=== PATIENT | female | born 1940 | race Caucasian/White ===

== ENCOUNTER 2020-01-11 10:59 | Outpatient (CLI) | payer MEDICARE, SELFPAY ==
[2020-01-11 11:39] LABS: Basophils Percent Auto 0.6 % (0.2-1.2); Eosinophils Absolute Auto 0.1 K/mm3 (0-0.3); Hematocrit 43.3 % (37.0-47.0); Hemoglobin 14.3 g/dL (12.0-15.0); Immature Granulocyte Absolute 0.02 K/mm3 (0.00-0.031); Immature Granulocyte Percent A 0.3 % (0-0.5); Lymphocytes Absolute Auto 1.49 K/mm3 (0.9-3.2); Lymphocytes Percent Auto 21.3 % (18.3-44.2); Mean Corpuscular Hemoglobin 31.8 pg (26-34); Mean Corpuscular Volume 96.2 fl (80-100); Mean Platelet Volume 10.7 fl (7.4-10.4); Monocytes Absolute Auto 0.4 K/mm3 (0.1-0.6); Neutrophils Absolute Auto 4.9 K/mm3 (1.3-6.7); Neutrophils Percent Auto 69.8 % (45.5-73.1); Platelet Count Result 240 k/mm3 (150-375); Red Cell Distribution Width 12.4 % (11.5-14.5)
[2020-01-11 11:54] LABS: Alanine Aminotransferase 19 U/L (4-35); Albumin Level 4.4 g/dL (3.5-5.1); Alkaline Phosphatase 81 U/L (38-126); Aspartate Amino Transferase 22 U/L (14-36); Bilirubin,Total 0.6 mg/dL (0.2-1.3); Blood Urea Nitrogen 15 mg/dL (7-17); Calcium 9.8 mg/dL (8.4-10.2); Carbon Dioxide 25 mmol/L (22-30); Chloride 104 mmol/L (98-107); Estimated Glomerular Filt Rate > 60; Glucose 92 mg/dL (65-105); Potassium 4.1 mmol/L (3.4-5.0); Sodium 142 mmol/L (137-145)
== END 2020-01-11 11:00 | disposition home or self-care (01) ==
LOC: ANHLAB 11:02
PROVIDERS: PCP Internal Medicine; Visit Provider Internal Medicine
DX: R53.83 Other fatigue (principal); I10 Essential (primary) hypertension; R11.0 Nausea
CPT/HCPCS: 36415; 80053; 85025

== ENCOUNTER 2020-01-13 07:49 | Outpatient (CLI) | payer MEDICARE, SELFPAY ==
--- NOTE | ~2020-01-13 | XR_ITS ---
EXAMINATION: XR UGI wo kub DATE: 01/13/2020 08:41 INDICATION: Flatulence and abdominal pain. TECHNIQUE: The patient drank thick barium, gas-producing crystals, and thin barium. A total of 785 fl uoroscopic images of the esophagus, stomach, and proximal small bowel were obtained. Fluoroscopy expo sure time was 1.8 minutes. COMPARISON: None. FINDINGS: The esophagus is normal without mass or stricture. Soft tissue motility is normal for age. Small sliding-type hiatal hernia with gastroesophageal junction approximately 4 cm above the level of the diaphragm. Reproducible gastroesophageal reflux of a large amount of contrast extending to the l evel of the thoracic inlet was elicited with provocative maneuvers. The stomach is normal. There are 2 large diverticula arising from the second portion of the duodenum and from the fourth portion near the ligament of Treitz. The latter measures up to 6.5 cm in maximal diameter. The visualized proximal small bowel is otherwise normal. IMPRESSION: 1. Small sliding-type hiatal hernia with gastroesophageal reflux. 2. A couple large duodenal diverticula. Reviewed, dictated and finalized at location A. OGRAPHY TECHNOLOGIST
== END 2020-01-13 07:50 | disposition home or self-care (01) ==
LOC: ANHIMG 07:56
PROVIDERS: PCP Internal Medicine; Visit Provider Internal Medicine
DX: R11.0 Nausea (principal); R14.3 Flatulence; K44.9 Diaphragmatic hernia without obstruction or gangrene; K57.10 Diverticulosis of small intestine without perforation or abscess without bleeding
CPT/HCPCS: 74240

== ENCOUNTER 2020-05-11 07:45 | Outpatient (CLI) | payer MEDICARE, SELFPAY ==
--- NOTE | ~2020-05-11 | CT_ITS ---
EXAMINATION: CT abdomen pelvis wo con DATE: 05/11/2020 16:28 INDICATION: Unspecified abdominal pain. TECHNIQUE: Computed tomography (CT) of the abdomen and pelvis was performed without intravenous contr ast. Automated exposure control and iterative reconstruction technique were employed. The dose-length product was 411.37 mGy-cm. COMPARISON: CT abdomen and pelvis 02/20/2018 FINDINGS: The visualized portions of the lung bases demonstrates mild atelectasis. No pleural effusio n. The heart size is normal. There are calcifications of the aortic valve. There are coronary artery calcifications. There is a small pericardial effusion. There is a small sliding hiatal hernia. There are cysts in the liver measuring up to 1.8 cm. The gallbladder, spleen, pancreas, and left adrenal gl and are normal. There is a 1.8 cm mass in right adrenal gland measuring soft tissue attenuation witho ut change in size, consistent with an adenoma. There is a 2.3 cm cyst in right kidney. Left kidney is normal. There is no urolithiasis. There is diverticulosis of the colon without evidence of diverticu litis. The appendix is normal. There are no dilated loops of bowel. Small bowel diverticula are noted . There are no pathologically enlarged lymph nodes. There is no free intraperitoneal fluid. There is lumbar levoscoliosis and severe spondylosis. IMPRESSION: 1. Small sliding hiatal hernia. 2. Small pericardial effusion. Reviewed, dictated and finalized at location A.
[2020-05-11 08:25] LABS: Hemoglobin A1C 6.6 % (<5.7)
[2020-05-11 08:29] LABS: Alanine Aminotransferase 13 U/L (4-35); Albumin Level 4.1 g/dL (3.5-5.1); Alkaline Phosphatase 79 U/L (38-126); Aspartate Amino Transferase 20 U/L (14-36); Bilirubin,Total 0.3 mg/dL (0.2-1.3); Blood Urea Nitrogen 12 mg/dL (7-17); Carbon Dioxide 27 mmol/L (22-30); Chloride 105 mmol/L (98-107); Cholesterol 105 mg/dL (0-200); Estimated Glomerular Filt Rate > 60; Glucose 112 mg/dL (65-105); HDL Direct 31 mg/dL; Sodium 137 mmol/L (137-145); Triglycerides 102 mg/dL (<150)
[2020-05-11 08:40] LABS: LDL Cholesterol Direct 55 mg/dL
[2020-05-11 08:57] LABS: Vitamin D 25 Hydroxy 33.6 ng/mL
== END 2020-05-11 07:46 | disposition home or self-care (01) ==
PROVIDERS: PCP Internal Medicine; Referring Provider Nurse Practitioner; Visit Provider Internal Medicine
DX: R19.7 Diarrhea, unspecified (principal); R10.9 Unspecified abdominal pain; E11.40 Type 2 diabetes mellitus with diabetic neuropathy, unspecified; E78.5 Hyperlipidemia, unspecified; E03.9 Hypothyroidism, unspecified; E55.9 Vitamin D deficiency, unspecified
CPT/HCPCS: 36415; 74176; 80053; 80061; 82306; 83036; 84443; 87045; 87046; 87427

== ENCOUNTER 2020-05-19 09:41 | Outpatient (CLI) | payer MEDICARE, SELFPAY ==
[2020-05-19 09:54] LABS: Hematocrit 38.5 % (37.0-47.0)
== END 2020-05-19 09:42 | disposition home or self-care (01) ==
PROVIDERS: PCP Internal Medicine; Visit Provider Internal Medicine
DX: E53.8 Deficiency of other specified B group vitamins (principal); R53.83 Other fatigue
CPT/HCPCS: 36415; 82607; 85014; 85018

== ENCOUNTER 2020-09-22 08:10 | Outpatient (CLI) | payer MEDICARE, SELFPAY ==
[2020-09-22 08:54] LABS: Alanine Aminotransferase 17 U/L (4-35); Albumin Level 4.3 g/dL (3.5-5.1); Alkaline Phosphatase 93 U/L (38-126); Anion Gap 11 mmol/L (8-16); Aspartate Amino Transferase 25 U/L (14-36); Bilirubin,Total 0.5 mg/dL (0.2-1.3); Blood Urea Nitrogen 21 mg/dL (7-17); Carbon Dioxide 28 mmol/L (22-30); Chloride 102 mmol/L (98-107); Cholesterol 132 mg/dL (0-200); Estimated Glomerular Filt Rate 53; Glucose 132 mg/dL (65-105); HDL Direct 36 mg/dL; Potassium 4.8 mmol/L (3.4-5.0); Sodium 141 mmol/L (137-145); Triglycerides 135 mg/dL (<150)
[2020-09-22 09:07] LABS: LDL Cholesterol Direct 72 mg/dL
[2020-09-22 09:19] LABS: Vitamin D 25 Hydroxy 36.6 ng/mL
[2020-09-22 09:23] LABS: Hemoglobin A1C 6.6 % (<5.7)
== END 2020-09-22 08:11 | disposition home or self-care (01) ==
LOC: ANHLAB 08:14
PROVIDERS: PCP Internal Medicine; Visit Provider Internal Medicine
DX: E78.5 Hyperlipidemia, unspecified (principal); I10 Essential (primary) hypertension; E11.40 Type 2 diabetes mellitus with diabetic neuropathy, unspecified; E03.9 Hypothyroidism, unspecified; E55.9 Vitamin D deficiency, unspecified
CPT/HCPCS: 36415; 80053; 80061; 82306; 82607; 83036; 84443

== ENCOUNTER 2020-12-11 08:12 | Outpatient (CLI) | payer MEDICARE, SELFPAY ==
--- NOTE | ~2020-12-11 | MM_ITS ---
EXAMINATION: MM screening mary BI w maribel HISTORY: Screening TECHNIQUE: Craniocaudal and mediolateral oblique 3-D tomosynthesis images were obtained and synthetic 2-D images were generated. CAD analysis was submitted and interpreted. COMPARISON: No prior mammogram is available for comparison at this institution. BREAST PARENCHYMAL COMPOSITION: Breast composed of scattered areas of fibroglandular density FINDINGS: There are extensive punctate calcifications There is no evidence of suspicious mass or arch itectural distortion to suggest malignancy in either breast. There has been no suspicious interval ch eun. IMPRESSION: 1. Extensive bilateral calcifications. Comparison to previous outside mammograms recommended. BI-RADS CATEGORY 0 - INCOMPLETE STUDY, NEED ADDITIONAL IMAGING EVALUATION. Reviewed, dictated and finalized at location A. SQUAD COMMANDER IMPRESSION: 1. Extensive bilateral calcifications. Comparison to previous outside mammogram s recommended. BI-RADS CATEGORY 0 - INCOMPLETE STUDY, NEED ADDITIONAL IMAGING EVALUATION.
--- NOTE | ~2020-12-11 | DEXA_ITS ---
Bone Density Report Name: Kathy Valdez Age: 80 Sex: Female Ethnicity: White Date of : 1940 Indication: postmenopausal; height loss; hysterectomy; Referring Provider: Lilly Meehan Study: Bone densitometry was performed. Exam Date: December 11, 2020 Accession number: [id number] Bone Density: Region BMD T-score Z-score Classification AP Spine (L1, L2, L4) 0.991 -0.4 2.3 Normal Femoral Neck (Left) 0.613 -2.1 0.2 Osteopenia Total Hip (Left) 0.901 -0.3 1.8 Normal Total Hip Bilateral Avg 0.922 -0.2 1.9 Normal Femoral Neck (Right) 0.656 -1.7 0.6 Osteopenia Total Hip (Right) 0.942 0.0 2.1 Normal World Health Organization criteria for BMD impression classify patients as: Normal (T-score at or above -1.0), Osteopenia (T-score between -1.0 and -2.5), or Osteoporosis (T-score at or below -2.5). 10-year Fracture Risk(1): Major Osteoporotic Fracture 16% Hip Fracture 4.9% Reported Risk Factors: [place] (), Neck BMD=0.613, BMI=24.3 (1) FRAX(R) Version 3.08. Fracture probability calculated for an untreated patient. Fracture probability may be lower if the patient has received treatment. Previous Exams: Region Exam Age BMD T-score BMD Change BMD Change Date g/cm2 vs Baseline vs Previous AP Spine(L1, L2, L4) 12/11/2020 80 0.991 -0.4 -0.062(-5.9%)* -0.062(-5.9%)* 10/15/2014 74 1.053 0.2 Total Hip(Left) 12/11/2020 80 0.901 -0.3 -0.115(-11.3%) -0.115(-11.3%) 10/15/2014 74 1.016 0.6 Total Hip(Right) 12/11/2020 80 0.942 0.0 -0.112(-10.6%) -0.112(-10.6%) 10/15/2014 74 1.054 0.9 *Denotes significance at 95% confidence level, LSC for AP Spine = 0.022 g/cm2, LSC for Total Hip = 0.027 g/cm2 Clinical Information Provided by Patient: Has used the following medications: Vitamin D Has the following medical conditions: Hysterectomy Patient maximum height was 66.5 Menopause Age: 39 No regular weight bearing exercise Does not regularly consume dairy products Onset of menses at age 12 Number of children 1 Missed period for more than 6 months in a row Impression: The patient has low bone mass, based on the Left Femoral Neck T-score. The patient has an estimated ten-year risk of hip fracture of 4.9% and an estimated ten-year risk of major fracture of 16%, based on the WHO FRAX algorithm. The BMD for the AP Spine(L1, L2, L4) decreased, changing by -5.9% since the last DXA exam. The BMD for the Total Hip(Left) decreased, changing by
== END 2020-12-11 08:13 | disposition home or self-care (01) ==
PROVIDERS: PCP Internal Medicine; Visit Provider Nurse Practitioner
DX: Z12.31 Encounter for screening mammogram for malignant neoplasm of breast (principal); R92.8 Other abnormal and inconclusive findings on diagnostic imaging of breast; M85.852 Other specified disorders of bone density and structure, left thigh; M85.851 Other specified disorders of bone density and structure, right thigh
CPT/HCPCS: 77063; 77067; 77080

== ENCOUNTER 2021-01-20 07:12 | Outpatient (CLI) | payer MEDICARE, SELFPAY ==
[2021-01-20 07:56] LABS: Alanine Aminotransferase 21 U/L (4-35); Alkaline Phosphatase 119 U/L (38-126); Anion Gap 8 mmol/L (8-16); Aspartate Amino Transferase 25 U/L (14-36); Bilirubin,Total 0.3 mg/dL (0.2-1.3); Blood Urea Nitrogen 17 mg/dL (7-17); Calcium 9.4 mg/dL (8.4-10.2); Carbon Dioxide 27 mmol/L (22-30); Chloride 107 mmol/L (98-107); Cholesterol 111 mg/dL (0-200); Estimated Glomerular Filt Rate > 60; Glucose 131 mg/dL (65-105); HDL Direct 33 mg/dL; Potassium 3.7 mmol/L (3.4-5.0); Sodium 142 mmol/L (137-145); Triglycerides 85 mg/dL (<150)
[2021-01-20 08:07] LABS: LDL Cholesterol Direct 55 mg/dL
[2021-01-20 08:08] LABS: Creatinine Urine 165.3 mg/dL
[2021-01-20 08:10] LABS: MALB Creatinine Ratio 8.1 mg/g (0-30); Microalbumin Urine Random 13.4 mg/L (0-16.7)
[2021-01-20 08:13] LABS: Hemoglobin A1C 6.4 % (<5.7)
[2021-01-20 08:21] LABS: Vitamin D 25 Hydroxy 41.9 ng/mL
== END 2021-01-20 07:13 | disposition home or self-care (01) ==
PROVIDERS: PCP Internal Medicine; Visit Provider Nurse Practitioner
DX: E55.9 Vitamin D deficiency, unspecified (principal); E11.40 Type 2 diabetes mellitus with diabetic neuropathy, unspecified; E03.9 Hypothyroidism, unspecified; E78.5 Hyperlipidemia, unspecified; E53.8 Deficiency of other specified B group vitamins
CPT/HCPCS: 36415; 80053; 80061; 82043; 82306; 82607; 83036; 84443

== ENCOUNTER 2021-07-24 07:10 | Outpatient (CLI) | payer MEDICARE, SELFPAY ==
[2021-07-24 08:31] LABS: Hematocrit 44.1 % (37.0-47.0); Hemoglobin 14.2 g/dL (12.0-15.0)
[2021-07-24 08:56] LABS: Alanine Aminotransferase 23 U/L (4-35); Albumin Level 4.3 g/dL (3.5-5.1); Alkaline Phosphatase 143 U/L (38-126); Anion Gap 8 mmol/L (8-16); Aspartate Amino Transferase 28 U/L (14-36); Bilirubin,Total 0.6 mg/dL (0.2-1.3); Blood Urea Nitrogen 20 mg/dL (7-17); Calcium 9.7 mg/dL (8.4-10.2); Carbon Dioxide 26 mmol/L (22-30); Chloride 106 mmol/L (98-107); Cholesterol 130 mg/dL (0-200); Estimated Glomerular Filt Rate 60; Glucose 135 mg/dL (65-110); HDL Direct 29 mg/dL; Potassium 4.1 mmol/L (3.4-5.0); Sodium 140 mmol/L (137-145); Triglycerides 208 mg/dL (<150)
[2021-07-24 09:05] LABS: LDL Cholesterol Direct 55 mg/dL
[2021-07-24 09:43] LABS: Hemoglobin A1C 7.3 % (<5.7)
== END 2021-07-24 07:11 | disposition home or self-care (01) ==
PROVIDERS: PCP Internal Medicine; Visit Provider Internal Medicine
DX: E11.40 Type 2 diabetes mellitus with diabetic neuropathy, unspecified (principal); I10 Essential (primary) hypertension; E78.5 Hyperlipidemia, unspecified; D64.9 Anemia, unspecified; E03.9 Hypothyroidism, unspecified; E53.8 Deficiency of other specified B group vitamins
CPT/HCPCS: 36415; 80053; 80061; 82607; 83036; 84443; 85014; 85018

== ENCOUNTER 2021-08-13 07:52 | Outpatient (CLI) | payer MEDICARE, SELFPAY ==
--- NOTE | ~2021-08-13 | NM_ITS ---
EXAMINATION: NM beatrice stress w perfusion DATE: 08/13/2021 10:39 INDICATION: Chest pain TECHNIQUE: Rest images were obtained following intravenous administration of 11.5 mCi Tc99m tetrofosm in (Myoview). The patient was infused intravenously with Lexiscan (Regadenoson). Then, 23.3 mCi Tc99m tetrofosmin (Myoview) was administered intravenously, and stress images were obtained. Data was michael nstructed into short axis and horizontal and vertical long axis SPECT images. Gated SPECT images were also obtained. COMPARISON: None. FINDINGS: There is no definite reversible or fixed perfusion abnormality to suggest ischemia or infar ction. There is normal left ventricular chamber size, wall motion and ejection fraction. Left ventr icular ejection fraction measures >70%. IMPRESSION: 1. Normal myocardial perfusion at rest and during stress. 2. Left ventricular ejection fraction measuring >70%. Reviewed, dictated and finalized at location A.
--- NOTE | 2021-08-13 08:39 | EST_ITS ---
Patient Info Name: Kathy Valdez Age: 81 years : 1940 Gender: Female Ht: 65 in Wt: 150 lbs BSA: 1.78 m2 Exam Date: 08/13/2021 9:14 AM Exam Location: [facility] Stress Patient Status: Outpatient Admit Date: 08/13/2021 Staff Ordering Physician: Lilly Meehan Attending Provider: Lilly Meehan Exercise Technologist: Felicitas Holt RDCS Exercise Physician: Murtaza Vu DO Exam Type: CA stress beatrice w NM Study Info Indications R07.9 - Chest pain, unspecified A regadenoson stress test was performed. Summary 1. 1. Negative lexiscan stress test for ischemic ST changes by ECG criteria. 2. 2. Stable hemodynamics throughout the test. 3. 3. Nuclear scan to follow and will be reported separately. Please correlate with it. 4. 4. Patient informed of the above results. Protocol: Lexiscan Stress ECG Details Stage: REST Duration (min): 2 min : 32 sec HR (bpm): 79 SBP (mmHg): 124 DBP (mmHg): 68 Stage: REST Duration (min): 7 min : 50 sec HR (bpm): 73 SBP (mmHg): 124 DBP (mmHg): 68 Stage: STAGE 1 Duration (min): 1 min : 0 sec HR (bpm): 90 SBP (mmHg): 117 DBP (mmHg): 72 Stage: RECOVERY Duration (min): 1 min : 0 sec HR (bpm): 95 SBP (mmHg): 126 DBP (mmHg): 70 Stage: RECOVERY Duration (min): 2 min : 0 sec HR (bpm): 82 SBP (mmHg): 126 DBP (mmHg): 70 Stage: RECOVERY Duration (min): 3 min : 0 sec HR (bpm): 97 SBP (mmHg): 118 DBP (mmHg): 69 Stage: RECOVERY Duration (min): 3 min : 3 sec HR (bpm): 97 SBP (mmHg): 118 DBP (mmHg): 69 Rest HR: 73 bpm Peak HR: 98 bpm Rest Sys BP: 124 mmHg Peak Sys BP: 126 mmHg Max Pred HR: 138 bpm % Max Pred HR: 71 % Target HR: 117 bpm Max RPP: 12,348 bpm*mmHg Termination Reason: Completed protocol Cardiac Symptoms: Shortness of breath Total Time: 1 min : 0 sec Rest Yuen BP: 68 mmHg Peak Yuen BP: 70 mmHg Total Dose: 0.4 mg Resting ECG Sinus rhythm, RBBB, LAFB. Stress ECG No ST changes. Arrhythmias None. Report Signatures
== END 2021-08-13 07:53 | disposition home or self-care (01) ==
LOC: ANHCARD 07:55
PROVIDERS: PCP Internal Medicine; Visit Provider Nurse Practitioner
DX: R07.9 Chest pain, unspecified (principal)
CPT/HCPCS: 78452; 93017; A9502; J2785

== ENCOUNTER 2021-09-11 15:44 | Emergency (ER) | payer MEDICARE, SELFPAY ==
[2021-09-11 15:46] VITALS: BP 149/72; PULSE 74; RESP 24; TEMP 36.5; O2SAT 96
--- NOTE | 2021-09-11 15:48 | ED.CHESTPAIN ---
HPI - Chest Pain General Chief Complaint: Chest Pain Stated Complaint: CHEST PAIN Source: patient and RN notes reviewed Limitations: no limitations History of Present Illness HPI narrative: The vaccinated patient, non-smoker/nondrinker on several meds for HTN, HLD, etc., presents with right-sided chest pain. Patient been seen by medicine and has no known ASHD from recent noncontributory NM Tracie scan last month. She is pleasantly demented and through her recalls & complains of a 1 hour recurrence of right-sided chest pain. No med noncompliance, fever, cough, acid taste, diaphoresis, calf pain/edema , palpitations shortness of breath; no loss of taste/smell, vomiting/diarrhea, wheezing or sneezing. She describes the pain as somewhat reproducible with movement or palpation, is 'dull ', occ somewhat radiating to her back -unlike her GERD. She has been on tramadol in the past, but is not tried anything. Screening EKG is unchanged from previous; last year she had CT abdomen with noncontributory lung component; family advised and declines AMA going to hospital for higher level testing. Related Data Home Medications Medication Instructions Recorded Confirmed cholecalciferol (vitamin D3) 25 1,000 unit PO DAILY 11/03/19 07/31/21 mcg (1,000 unit) capsule omega-3 fatty acids 1,000 mg 1,000 mg PO DAILY 07/31/21 07/31/21 capsule Allergies Allergy/AdvReac Type Severity Reaction Status Date / Time lidocaine Allergy Unknown Unknown Verified 07/31/21 10:14 metronidazole Allergy Unknown Unknown Verified 07/31/21 10:14 mirabegron Allergy Unknown Unknown Verified 07/31/21 10:14 Penicillins Allergy Unknown Unknown Verified 07/31/21 10:14 Review of Systems Review of Systems: General/Constitutional: No weight loss,fever Eyes: N0: Redness,discharge Ears/Nose/Throat: No: Epistaxis,ear discharge Respiratory: Denies: Hemoptysis Gastrointestinal: No Vomiting, Bleeding-rectal Skin: No Lumps, eruption Neurologic: No Focal Weakness,Sz Hematologic: Denies: Petechiae/Purpura Psychiatric: No: Suicida ideationl All Other Systems: Reviewed and Negative [facility] Past Medical History Medical History (Reviewed 01/23/21 @ 11:06 by Melissa Lloyd [facility]) History of needle biopsy Postmenopausal Screening for breast cancer Screening for osteoporosis Surgical History Surgical History History of colon resection S/P RALF-BSO Family History Family History Mother Cerebrovascular accident Family history of Alzheimer's disease Father Family history of heart disease in male family member before age 55 Sibling Family history of heart disease in male family member before age 55 Other Diabetes mellitus Family history of cardiovascular disease Hypertension Social History Social History Smoking status: Former smoker Smoking end date: 12/01/76 Alcohol intake: current Comments At time of signature, agree with nursing past medical, surgical, social and family history. There is no relevant family history pertinent to the presenting complaint Exam Narrative: General Appearance: Well appearing, overweight no distress EYE: PERRLA, Conjunctiva clear Ears: External ear normal Nose: Normal nose Mouth/Throat: Normal appearing, Normal lips Neck: Supple Respiratory: Airway patent, No respiratory distress, CTA decreased BS at bases, tender right infraclavicular chest wall Cardiovascular: RRR, 2/6 TAMMIE Abdomen: Soft, Non-tender, No massess, No organomegaly (no rebound/ surgical signs), Hyperactive bowel sounds Musculoskeletal: Full ROM Skin: Warm, Dry, no edema/ calf tenderness Neurological: Awake alert pleasantly demented affect Psychiatric: Normal mood, Course Course Emergency Course: EKG abnormal: NSR 63, MD 0.14 possible IC RBBB, axis~-60 possible
--- NOTE | 2021-09-11 15:58 | ECG_ITS ---
Measurements Intervals [place] Rate: 63 P: 5 IL: 148 QRS: -55 QRSD: 130 T: -8 QT: 418 QTc: 429 Interpretive Statements SINUS RHYTHM RIGHT BUNDLE BRANCH BLOCK LEFT ANTERIOR FASCICULAR BLOCK BASELINE ARTIFACT- II, III, AVF ABNORMAL ECG Electronically Signed On 09-11-2021 16:53:12 CDT by Murtaza uV D.O.
== END 2021-09-11 16:44 | disposition home or self-care (01) ==
PROVIDERS: Emergency Provider Emergency Medicine; PCP Internal Medicine
DX: R07.89 Other chest pain (principal); I45.2 Bifascicular block; I10 Essential (primary) hypertension; E78.5 Hyperlipidemia, unspecified
CPT/HCPCS: 93005; 99213; G0463

== ENCOUNTER 2021-11-28 07:49 | Outpatient (CLI) | payer MEDICARE, SELFPAY ==
[2021-11-28 09:04] LABS: Alanine Aminotransferase 16 U/L (4-35); Albumin Level 4.3 g/dL (3.5-5.1); Alkaline Phosphatase 113 U/L (38-126); Anion Gap 8 mmol/L (8-16); Aspartate Amino Transferase 24 U/L (14-36); Bilirubin,Total 0.6 mg/dL (0.2-1.3); Blood Urea Nitrogen 19 mg/dL (7-17); Calcium 9.7 mg/dL (8.4-10.2); Carbon Dioxide 24 mmol/L (22-30); Chloride 108 mmol/L (98-107); Cholesterol 109 mg/dL (0-200); Estimated Glomerular Filt Rate 60; Glucose 118 mg/dL (65-110); HDL Direct 23 mg/dL; Potassium 3.9 mmol/L (3.4-5.0); Sodium 140 mmol/L (137-145); Triglycerides 174 mg/dL (<150)
[2021-11-28 09:15] LABS: LDL Cholesterol Direct 49 mg/dL
[2021-11-28 09:18] LABS: Creatinine Urine 163.3 mg/dL
[2021-11-28 09:22] LABS: Microalbumin Urine Random 16.4 mg/L (0-16.7)
[2021-11-28 09:29] LABS: Vitamin D 25 Hydroxy 40.7 ng/mL
== END 2021-11-28 07:50 | disposition home or self-care (01) ==
LOC: ANHLAB 07:52
PROVIDERS: PCP Internal Medicine; Visit Provider Nurse Practitioner
DX: E11.40 Type 2 diabetes mellitus with diabetic neuropathy, unspecified (principal); E78.5 Hyperlipidemia, unspecified; E55.9 Vitamin D deficiency, unspecified; E53.8 Deficiency of other specified B group vitamins; E03.9 Hypothyroidism, unspecified
CPT/HCPCS: 36415; 80053; 80061; 82043; 82306; 82607; 83036; 84443

== ENCOUNTER 2021-12-07 14:34 | Outpatient (CLI) | payer MEDICARE, SELFPAY ==
--- NOTE | ~2021-12-07 | XR_ITS ---
EXAMINATION: XR lumbar spine 2-3V EXAM DATE: 12/07/2021 15:02 INDICATION: M54.5 - Right low back pain. TECHNIQUE: Lumber spine frontal, lateral, lateral L5-S1 projections for interpretation. Comparison is made to prior examination from 04/27/2019. FINDINGS: There is mild to moderate lumbar levoscoliosis. Moderate disc disease L2-3, L3-4 and L5-S1 the vertebral body heights are maintained. There is moderate lumbar facet arthropathy. Sacrum, sacro iliac joints, sacral arcuate lines are intact.. IMPRESSION: 1. Mild to moderate lumbar scoliosis. 2. Moderate spondylosis. Reviewed, dictated and finalized at location G. AT MONITORING ANALYST
--- NOTE | ~2021-12-07 | XR_ITS ---
EXAMINATION: XR hip RT min 2V DATE: 12/07/2021 15:01 INDICATION: Right hip pain. TECHNIQUE: 2 views of right hip were obtained. COMPARISON: Right hip radiographs 04/27/2019 FINDINGS: Bone alignment is normal. No fracture. There is mild right hip osteoarthritis. IMPRESSION: 1. Mild right hip osteoarthritis. Reviewed, dictated and finalized at location A. B SPECIALIST
== END 2021-12-07 14:35 | disposition home or self-care (01) ==
LOC: ANHIMG 14:39
PROVIDERS: PCP Internal Medicine; Visit Provider Internal Medicine
DX: M25.551 Pain in right hip (principal); M41.9 Scoliosis, unspecified; M47.816 Spondylosis without myelopathy or radiculopathy, lumbar region
CPT/HCPCS: 72100; 73502

== ENCOUNTER 2021-12-27 15:09 | Outpatient (CLI) | payer MEDICARE, SELFPAY ==
--- NOTE | ~2021-12-27 | MM_ITS ---
EXAMINATION: MM screening mary BI w maribel HISTORY: Screening mammogram TECHNIQUE: Craniocaudal and mediolateral oblique 3-D tomosynthesis images were obtained and synthetic 2-D images were generated. CAD analysis was submitted and interpreted. COMPARISON: 12/11/2020, 03/02/2018 BREAST PARENCHYMAL COMPOSITION: There are scattered areas of fibroglandular density. FINDINGS: Scattered benign-appearing calcifications are present. There is no evidence of suspicious m ass, calcification, or architectural distortion to suggest malignancy in either breast. There has bee n no suspicious interval change. IMPRESSION: 1. No mammographic evidence of malignancy. 2. Recommend routine screening mammography while the patient remains in good health. BI-RADS Category 2: Benign finding(s). Reviewed, dictated and finalized at location A. K SHEETS CLEANER INSPECTOR IMPRESSION: 1. No mammographic evidence of malignancy. 2. Recommend routine screening mammography while the patient remains in good he alth. BI-RADS Category 2: Benign finding(s).
== END 2021-12-27 15:10 | disposition home or self-care (01) ==
LOC: ANHIMG 15:12
PROVIDERS: PCP Internal Medicine; Visit Provider Internal Medicine
DX: Z12.31 Encounter for screening mammogram for malignant neoplasm of breast (principal)
CPT/HCPCS: 77063; 77067

== ENCOUNTER 2022-01-06 11:27 | Emergency (ER) | payer MEDICARE, SELFPAY ==
[2022-01-06] VITALS (25 sets, daily range): BP systolic 122–137; BP diastolic 63–82; PULSE 88; RESP 20; TEMP 36.7; O2SAT 91–96
--- NOTE | ~2022-01-06 | CT_ITS ---
EXAMINATION: CT lumbar spine wo [facility] EXAM DATE: 01/06/2022 14:30 INDICATION: low back pain, injury . TECHNIQUE: Spiral CT lumbar spine was performed without contrast. Axial, coronal and sagittal images of the lumbar spine were reviewed. The dose-length product (DLP) for this examination was 410.12 mGy- cm. The exposure was tailored according to patient size (auto mA exposure control), and iterative re construction (ASIR) was used as additional dose reduction technique. There is no prior study for max orozco. FINDINGS: There is possible acute minimal compression fracture at the superior endplate of T12. There is moderate disc disease at L2-3 and L5-S1, mild to moderate at L3-4. Mild central canal stenosis fr om L2 through S1 due to disc bulges and moderate to severe facet arthropathy. There is mild to modera te multilevel neural foraminal stenosis. Mild thoracolumbar levoscoliosis. Sacrum appears intact wit h moderate osteoarthritis. IMPRESSION: 1. Possible acute minimal compression fracture T12 superior endplate. 2. Overall moderate lumbar spondylosis. Reviewed, dictated and finalized at location G. TUB COOKER OPERATOR
--- NOTE | 2022-01-06 12:52 | PC.NURSE ---
patient and has been asking about food as patient is diabetic. BSBS at this time 142.
[2022-01-06 12:53] LABS: Glucose Point of Care 142 mg/dl (65-105)
--- NOTE | 2022-01-06 13:51 | ED.FALL ---
HPI - Fall General Chief Complaint: Fall Stated Complaint: fall - back pain Time Seen by Provider: 01/06/22 12:27 Source: patient Mode of arrival: ambulatory Limitations: no limitations History of Present Illness HPI Narrative: Patient is an 81-year-old female complaining of low back pain, 7 out of 10, dull, aching, nonradiating started prior to arrival after she slipped and fell landing on her back. Patient states that she tripped on a throw rug and that is reason why she fell. Patient denies any symptoms prior to the fall. Patient states that she has a history of chronic low back pain, I am in constant 5 out of 10 pain . Patient denies any weakness, numbness or incontinence. Patient denies any head, neck, chest, abdomen, pelvis or any extremity pain/injury. Related Data Home Medications Medication Instructions Recorded Confirmed cholecalciferol (vitamin D3) 25 1,000 unit PO DAILY 11/03/19 12/05/21 mcg (1,000 unit) capsule omega-3 fatty acids 1,000 mg 1,000 mg PO DAILY 07/31/21 12/05/21 capsule losartan 50 mg PO DAILY 01/06/22 metformin 1,000 mg PO BID 01/06/22 simvastatin 40 mg PO DAILY 01/06/22 Allergies Allergy/AdvReac Type Severity Reaction Status Date / Time lidocaine Allergy Unknown Unknown Verified 12/05/21 10:53 metronidazole Allergy Unknown Unknown Verified 12/05/21 10:53 mirabegron Allergy Unknown Unknown Verified 12/05/21 10:53 Penicillins Allergy Unknown Unknown Verified 12/05/21 10:53 Review of Systems Review of Systems: All systems reviewed & are unremarkable except as noted in HPI and below Constitutional: Constitutional: Denies body ache(s), Denies chills, Denies excessive sweating, Denies fatigue, Denies fever(s), Denies headache(s), Denies lethargy, Denies malaise, Denies weakness and Denies weight loss Eyes: Eyes: Denies blurry vision, Denies change in vision and Denies loss of vision ENT: Denies dizziness, Denies ear discharge, Denies headache(s), Denies lip swelling, Denies epistaxis, Denies nasal congestion, Denies neck pain, Denies throat swelling and Denies tongue swelling Cardiovascular: Cardiovascular: Denies chest pain, Denies chest pain at rest, Denies chest pain with activity, Denies diaphoresis, Denies rapid heart rate, Denies edema, Denies irregular heart rhythm, Denies lightheadedness, Denies palpitations, Denies dyspnea and Denies dyspnea on exertion Respiratory: Respiratory: Denies chest congestion, Denies cough, Denies hemoptysis, Denies dyspnea and Denies dyspnea on exertion Gastrointestinal: Gastrointestinal: Denies abdominal pain, Denies melena, Denies hematochezia, Denies diarrhea, Denies nausea, Denies vomiting and Denies hematemesis Musculoskeletal: Musculoskeletal: Denies abnormal gait, Denies deformity, Denies joint swelling, Denies limited range of motion, Denies neck pain and Denies numbness Neurologic: Denies Abnormal speech present, Denies abnormal gait, Denies confusion, Denies dizziness, Denies headache(s), Denies focal weakness, Denies loss of vision, Denies numbness, Denies Other visual disturbances, Denies Sensory deficit (Neuro) and Denies weakness Psychiatric: Psychiatric: Denies confusion, Denies depression, Denies auditory hallucinations, Denies homicidal ideation and Denies suicidal ideation Endocrine: Endocrine: Denies cold intolerance, Denies excessive sweating, Denies fatigue, Denies heat intolerance and Denies palpitations Hematologic/Lymphatic: Hematologic/Lymphatic: Denies easy bleeding and Denies easy bruising Allergic/Immunologic: Allergic/Immunologic: Denies lip swelling, Denies throat swelling and Denies tongue swelling PMFSH Past Medical History Medical History History of needle biopsy Postmenopausal Screening for breast cancer Screening for osteoporosis Surgical History Surgical History History of colon resection S/P RALF-BSO
[2022-01-06] MEDS: ONDANSETRON INJ 4 MG/2 ML VIAL IV PUSH (14:16)
[2022-01-06] MEDS: HYDROmorphone HCL INJ (*CRX) 1 MG/ML SYR 0.5 MG IV PUSH (14:16)
[2022-01-06] MEDS: KETOROLAC 15 MG/ML VIAL (*BKC) IV PUSH (14:37)
== END 2022-01-06 16:36 | disposition home or self-care (01) ==
PROVIDERS: Emergency Provider Emergency Medicine; PCP Internal Medicine
DX: S22.080A Wedge compression fracture of T11-T12 vertebra, initial encounter for closed fracture (principal); Z87.891 Personal history of nicotine dependence; M47.816 Spondylosis without myelopathy or radiculopathy, lumbar region; Z79.84 Long term (current) use of oral hypoglycemic drugs; Z90.49 Acquired absence of other specified parts of digestive tract; W18.09XA Striking against other object with subsequent fall, initial encounter
CPT/HCPCS: 72131; 82948; 96374; 96375; 99284; J1170; J1885; J2405

== ENCOUNTER 2022-03-12 07:34 | Outpatient (CLI) | payer MEDICARE, SELFPAY ==
--- NOTE | ~2022-03-12 | XR_ITS ---
EXAMINATION: XR knee RT 3V EXAM DATE: 03/12/2022 09:04 INDICATION: M25.561 - Pain in right knee, no recent injury . TECHNIQUE: Three projections of the right knee. There is no prior study for comparison. FINDINGS: No evidence osteochondral defect or joint body in the right knee joint. There is mild tri compartmental primary osteoarthritis. No joint effusion. There are no acute fractures or dislocation s identified. There is no subcutaneous gas. The soft tissue is unremarkable. There are no radiopa que foreign bodies. IMPRESSION: Mild right knee osteoarthritis. Reviewed, dictated and finalized at location B.
--- NOTE | ~2022-03-12 | CT_ITS ---
EXAMINATION: CT brain wo con DATE: 03/12/2022 09:12 INDICATION: Other symptoms and signs involving cognitive function. TECHNIQUE: Computed tomography (CT) of the head was performed without intravenous contrast. The mA wa s adjusted according to patient size. Iterative reconstruction technique was employed. The dose-lengt h product was 605.33 mGy-cm. COMPARISON: None FINDINGS: There are scattered areas of low attenuation in the cerebral white matter. There is no intracranial h emorrhage, acute infarction, or abnormal intracranial mass lesion. The ventricles are normal in size. There is mild mucosal thickening in the paranasal sinuses. The mastoid air cells are normal. IMPRESSION: 1. Mild nonspecific cerebral white matter disease, which likely represents chronic small vessel ische elena disease. Reviewed, dictated and finalized at location A. IMPRESSION: 1. Mild nonspecific cerebral white matter disease, which likely represents poultry dresser luis daniel small vessel ischemic disease.
[2022-03-12 08:03] LABS: Basophils Absolute Auto 0.1 K/mm3 (0.0-0.1); Basophils Percent Auto 0.6 % (0.2-1.2); Eosinophils Absolute Auto 0.1 K/mm3 (0-0.3); Eosinophils Percent Auto 1.7 % (0-4.4); Hematocrit 39.1 % (37.0-47.0); Hemoglobin 13.1 g/dL (12.0-15.0); Immature Granulocyte Absolute 0.02 K/mm3 (0.00-0.031); Immature Granulocyte Percent A 0.3 % (0-0.5); Lymphocytes Absolute Auto 1.49 K/mm3 (0.9-3.2); Lymphocytes Percent Auto 19.2 % (18.3-44.2); Mean Corpuscular HGB Conc 33.5 g/dl (32-36); Mean Corpuscular Hemoglobin 32.7 pg (26-34); Mean Corpuscular Volume 97.5 fl (80-100); Mean Platelet Volume 10.4 fl (7.4-10.4); Monocytes Absolute Auto 0.5 K/mm3 (0.1-0.6); Monocytes Percent Auto 6.6 % (2.6-8.5); Neutrophils Absolute Auto 5.6 K/mm3 (1.3-6.7); Neutrophils Percent Auto 71.6 % (45.5-73.1); Platelet Count Result 245 k/mm3 (150-375); Red Blood Count 4.01 M/mm3 (4.2-5.4); Red Cell Distribution Width 12.7 % (11.5-14.5); White Blood Count 7.8 K/mm3 (4.5-10.0)
== END 2022-03-12 07:35 | disposition home or self-care (01) ==
LOC: ANHIMG 07:38
PROVIDERS: PCP Internal Medicine; Visit Provider Internal Medicine
DX: R41.89 Other symptoms and signs involving cognitive functions and awareness (principal); M17.11 Unilateral primary osteoarthritis, right knee; R53.83 Other fatigue; E53.8 Deficiency of other specified B group vitamins; R90.82 White matter disease, unspecified
CPT/HCPCS: 36415; 70450; 73562; 82607; 85025

== ENCOUNTER 2022-04-04 12:12 | Emergency (ER) | payer MEDICARE, SELFPAY ==
--- NOTE | ~2022-04-04 | XR_ITS ---
EXAMINATION: XR abdomen/kub 1V DATE: 04/04/2022 16:17 INDICATION: Constipation. Abdominal pain. Nausea. TECHNIQUE: A supine view of the abdomen on 2 radiographs was obtained. COMPARISON: Lumbar spine radiographs 04/27/2019 FINDINGS: There are no dilated loops of bowel. There is a moderate volume of stool in the colon. Stab le calcifications in the pelvis are likely phleboliths. IMPRESSION: 1. Nonobstructive bowel gas pattern. Reviewed, dictated and finalized at location A.
[2022-04-04 12:15] VITALS: BP 90/59; PULSE 55; RESP 20; TEMP 36.1; O2SAT 96
[2022-04-04 12:28] LABS: Glucose Point of Care 135 mg/dl (65-105)
[2022-04-04 12:32] LABS: Basophils Absolute Auto 0.1 K/mm3 (0.0-0.1); Basophils Percent Auto 0.9 % (0.2-1.2); Eosinophils Absolute Auto 0.1 K/mm3 (0-0.3); Eosinophils Percent Auto 2.1 % (0-4.4); Hematocrit 40.6 % (37.0-47.0); Immature Granulocyte Absolute 0.02 K/mm3 (0.00-0.031); Immature Granulocyte Percent A 0.3 % (0-0.5); Lymphocytes Absolute Auto 2.52 K/mm3 (0.9-3.2); Lymphocytes Percent Auto 37.4 % (18.3-44.2); Mean Corpuscular Hemoglobin 32.3 pg (26-34); Mean Platelet Volume 10.8 fl (7.4-10.4); Monocytes Absolute Auto 0.5 K/mm3 (0.1-0.6); Monocytes Percent Auto 7.4 % (2.6-8.5); Neutrophils Absolute Auto 3.5 K/mm3 (1.3-6.7); Neutrophils Percent Auto 51.9 % (45.5-73.1); Platelet Count Result 258 k/mm3 (150-375); Red Blood Count 4.02 M/mm3 (4.2-5.4); Red Cell Distribution Width 12.9 % (11.5-14.5); White Blood Count 6.7 K/mm3 (4.5-10.0)
[2022-04-04 12:46] LABS: Alanine Aminotransferase 14 U/L (4-35); Albumin Level 4.2 g/dL (3.5-5.1); Alkaline Phosphatase 85 U/L (38-126); Anion Gap 9 mmol/L (8-16); Aspartate Amino Transferase 24 U/L (14-36); Bilirubin,Total 0.4 mg/dL (0.2-1.3); Blood Urea Nitrogen 20 mg/dL (7-17); Calcium 9.2 mg/dL (8.4-10.2); Carbon Dioxide 22 mmol/L (22-30); Chloride 109 mmol/L (98-107); Estimated CRCL calculation 42 ml/min; Estimated Glomerular Filt Rate > 60; Glucose 140 mg/dL (65-110); Lipase 85 U/L (23-300); Sodium 140 mmol/L (137-145)
[2022-04-04 16:03] LABS: Appearance Urine Clear (Clear); Bilirubin Urine 1+ (Negative); Blood Urine Trace-lysed (Negative); Color Urine Yellow (Yellow); Glucose Urine UA Negative (Negative); Ketones Urine Trace mg/dL (Negative); Leukocyte Esterase Ur 1+ LEU/UL (Negative); Nitrate Urine Negative (Negative); Protein Urine 1+ mg/dL (Negative); Specific Grav Ur 1.025 (1.001-1.035); Urobilinogen Urine 0.2 mg/dL (<2.0); pH Urine 5.5 (5.0-9.0)
[2022-04-04 16:10] LABS: Bacteria Urine Trace /hpf; Mucus Urine Moderate /lpf; Squamous Epithelial Cell Urine Few /hpf (Few); WBC Urine 31-50 /hpf
[2022-04-04 16:12] LABS: Add Urine Microscopic? YES
--- NOTE | 2022-04-04 17:13 | ED.ABDPAIN ---
HPI - Abdominal Pain General Chief Complaint: Abdominal Pain Stated Complaint: locked bowels Time Seen by Provider: 04/04/22 15:46 History of Present Illness HPI narrative: Patient is an 81-year-old female who presents ER with concerns for constipation. Patient has memory issues and is cared for by her . He reports that she has not had a bowel movement for couple of days. He gave her 2 doses of docusate yesterday without improvement. She also gave her MiraLAX today without improvement. He attempted to give her a fleets enema but she cannot retain the fluid. Patient is not complaining of any pain in her abdomen. She has had no vomiting. No belching. No distention of the abdomen. Related Data Home Medications Medication Instructions Recorded Confirmed cholecalciferol (vitamin D3) 25 1,000 unit PO DAILY 11/03/19 03/07/22 mcg (1,000 unit) capsule omega-3 fatty acids 1,000 mg 1,000 mg PO DAILY 07/31/21 03/07/22 capsule metformin 1,000 mg PO BID 01/06/22 03/07/22 docusate sodium 50 mg capsule 50 mg PO DAILY 01/30/22 03/07/22 vitamin B complex 1 tablet PO DAILY 01/30/22 03/07/22 tramadol 100 mg capsule 100 mg PO DAILY 03/07/22 03/07/22 24h,extended release(25-75) Allergies Allergy/AdvReac Type Severity Reaction Status Date / Time lidocaine Allergy Unknown Unknown Verified 04/04/22 16:19 metronidazole Allergy Unknown Unknown Verified 04/04/22 16:19 mirabegron Allergy Unknown Unknown Verified 04/04/22 16:19 Penicillins Allergy Unknown Unknown Verified 04/04/22 16:19 Review of Systems Review of Systems: ROS unobtainable: Yes unobtainable due to mental status PMFSH Past Medical History Medical History History of needle biopsy Postmenopausal Screening for breast cancer Screening for osteoporosis Surgical History Surgical History History of colon resection S/P RALF-BSO Family History Family History Mother Cerebrovascular accident Family history of Alzheimer's disease Father Family history of heart disease in male family member before age 55 Sibling Family history of heart disease in male family member before age 55 Other Diabetes mellitus Family history of cardiovascular disease Hypertension Social History Social History Smoking status: Former smoker Smoking end date: 12/01/76 Alcohol intake: former Substance use: never Exam Narrative: GENERAL: Frail-appearing, well-nourished, and in no acute distress. HEAD: Normocephalic, atraumatic. EYES: PERRLAand EOMI. NECK: Supple. CHEST: Clear to auscultation. No respiratory distress. HEART: Regular rate and rhythm. Normal peripheral pulses. ABDOMEN: Soft, nontender, nondistended. EXTREMITIES: Normal range of motion. No edema. SKIN: Warm, dry, no rash. NEURO: Awake and alert. Follows commands. Course Course Emergency Course: Patient poorly tolerant of soapsuds enema. Will give some magnesium citrate orally. Discussed with that he can give 1 dose of MiraLAX daily and when she has a bowel movement or diarrhea he should discontinue or back off. Moderate volume colonic stool, nothing to manually remove. Verbalized understanding. Patient may also have a UTI that is causing her to feel like she needs to go to the bathroom so there may be some confusion about her symptoms given her dementia. Will place on a few days of antibiotics. Discharge home. Vital Signs Vital signs: Vital Signs Temperature 96.9 F L 04/04/22 12:15 Pulse Rate 55 L 04/04/22 12:15 Respiratory Rate 20 04/04/22 12:15 Blood Pressure 90/59 L 04/04/22 12:15 Pulse Oximetry 96 04/04/22 12:15 Temperature 96.9 F L 04/04/22 12:15 Pulse Rate 55 L 04/04/22 12:15 Respiratory Rate 20 04/04/22 12:15 Blood Pressure 90/59 L 0
--- NOTE | 2022-04-04 18:36 | PC.NURSE ---
patient up to the [facility] after receiving SSE. unable to hold well.
--- NOTE | 2022-04-04 18:50 | PC.NURSE ---
scant amount of stool noted after receiving SSE as patient was unable to tolerate. Dr. Camejo aware
[2022-04-04 19:32] VITALS: BP 105/64; PULSE 60; RESP 18; O2SAT 97
[2022-04-04] MEDS: MAGNESIUM CITRATE 300 ML BTL PO (19:32)
== END 2022-04-04 19:33 | disposition home or self-care (01) ==
PROVIDERS: Emergency Provider Emergency Medicine; PCP Internal Medicine
DX: K59.00 Constipation, unspecified (principal); N39.0 Urinary tract infection, site not specified; Z90.49 Acquired absence of other specified parts of digestive tract; Z87.891 Personal history of nicotine dependence
CPT/HCPCS: 36415; 74018; 80053; 81001; 82948; 83690; 85025; 87086; 87088; 99283; A9270

== ENCOUNTER 2022-06-06 12:39 | Outpatient (CLI) | payer MEDICARE, SELFPAY ==
--- NOTE | 2022-06-07 09:55 | P.NEURO_ITS ---
Neurology EEG Report General Information Date of Study: 06/06/22 TEST eeg DIAGNOSIS cognitive dysfunction CONDITION OF RECORDING awake drowsy and sleep EEG NUMBER [id number] CLINICAL HISTORY patient reports she is having troubles with her memory EEG DESCRIPTION basic resting occipital frequency consists of low to medium voltage 8 to 9 hertz per 2nd alpha admixed with low-voltage 15 to 18 hertz per 2nd beta. Low- voltage beta activity seen diffusely during drowsiness admixed with waxing and waning posterior alpha rhythm. Bilateral symmetrical sleep activity seen during sleep. Hyperventilation not done. Photic stimulation produced fair drive. Non paroxysmal. Nonfocal. Nonlateralizing. IMPRESSION Normal record
== END 2022-06-06 12:40 | disposition home or self-care (01) ==
LOC: ANHNEURO 12:43
PROVIDERS: PCP Internal Medicine; Visit Provider Psychiatry & Neurology Neurology
DX: R41.89 Other symptoms and signs involving cognitive functions and awareness (principal)
CPT/HCPCS: 95816

== ENCOUNTER 2022-07-14 12:37 | Observation (INO) | payer MEDICARE, SELFPAY ==
[2022-07-14] VITALS (12 sets, daily range): BP systolic 111–139; BP diastolic 51–72; PULSE 81–87; RESP 13–21; TEMP 36.6–36.9; O2SAT 92–100; BMI 19.2
--- NOTE | ~2022-07-14 | XR_ITS ---
XR knee RT 2V 07/15/2022 14:26 INDICATION: Right knee pain PROCEDURE: 2 views right knee COMPARISON: No prior studies for comparison. FINDINGS: Fracture, dislocation or subluxation is not identified. No significant joint effusion. The soft tissues appear within normal limits. No foreign bodies are identified. IMPRESSION: 1: NO ACUTE BONE OR JOINT ABNORMALITY IDENTIFIED. Reviewed, dictated and finalized at location B.
--- NOTE | ~2022-07-14 | CT_ITS ---
EXAMINATION: CT cervical spine wo con DATE: 07/15/2022 14:53 INDICATION: Neck injury. Fall. TECHNIQUE: Computed tomography (CT) of the cervical spine was performed without intravenous contrast. Automated exposure control and iterative reconstruction technique were employed. The dose-length pro duct was 222.90 mGy-cm. COMPARISON: None FINDINGS: There is 3 degrees levocurvature of cervical spine. There is hypolordosis of cervical spine . Vertebral body heights are normal. There is severely decreased disc height at C4-C5 and moderately decreased disc height at C5-C6 and C6-C7. The following disc levels are specifically discussed: C2-C3: There is mild bilateral uncovertebral joint osteoarthritis. There is mild right and severe lef t facet joint osteoarthritis. There is mild left neural foraminal stenosis. There is no central canal stenosis. C3-C4: There is mild bilateral uncovertebral joint osteoarthritis. There is severe right and moderate left facet joint osteoarthritis. There is no neural foraminal stenosis. There is mild central canal stenosis. C4-C5: There is severe bilateral uncovertebral joint osteoarthritis. There is mild right and severe l eft facet joint osteoarthritis. There is mild bilateral neural foraminal stenosis. There is mild cent ral canal stenosis. C5-C6: There is severe bilateral uncovertebral joint osteoarthritis. There is moderate right and delgado re left facet joint osteoarthritis. There is mild bilateral neural foraminal stenosis. There is mild central canal stenosis. C6-C7: There is severe right and mild left uncovertebral joint osteoarthritis. There is severe left f acet joint osteoarthritis. There is mild bilateral neural foraminal stenosis. There is mild central c anal stenosis. C7-T1: There is no uncovertebral joint osteoarthritis. There is moderate right and severe left facet joint osteoarthritis. There is mild left neural foraminal stenosis. There is no central canal stenosi s. IMPRESSION: 1. No fracture. 2. Severe cervical spondylosis. Reviewed, dictated and finalized at location A.
--- NOTE | ~2022-07-14 | XR_ITS ---
EXAMINATION: XR chest 1V portable INDICATION: Weakness and shortness of breath TECHNIQUE: Portable AP chest at 1301 hours COMPARISON: 11/22/2013 FINDINGS: A mild diffuse interstitial pattern is present. No pleural effusion or pneumothorax. The ca rdiomediastinal silhouette is normal. IMPRESSION: 1. Mild diffuse interstitial pattern which could reflect pulmonary edema versus pneumonia. Reviewed, dictated and finalized at location A.
--- NOTE | ~2022-07-14 | CT_ITS ---
EXAMINATION: CT brain wo con DATE: 07/15/2022 14:53 INDICATION: Head injury. TECHNIQUE: Computed tomography (CT) of the head was performed without intravenous contrast. The mA wa s adjusted according to patient size. Iterative reconstruction technique was employed. The dose-lengt h product was 605.33 mGy-cm. COMPARISON: Head CT 03/12/2022 FINDINGS: There is no intracranial hemorrhage, acute infarction, or abnormal intracranial mass lesion . There are scattered areas of low attenuation in the cerebral white matter. The ventricles are neri l in size. There is mild mucosal thickening in the paranasal sinuses. The mastoid air cells are neri l. IMPRESSION: 1. Stable mild nonspecific cerebral white matter disease, which likely represents chronic small vesse l ischemic disease. Reviewed, dictated and finalized at location A. IMPRESSION: 1. Stable mild nonspecific cerebral white matter disease, which likely represen ts chronic small vessel ischemic disease.
--- NOTE | ~2022-07-14 | XR_ITS ---
EXAMINATION: XR hip RT min 2V DATE: 07/15/2022 14:26 INDICATION: Right hip pain TECHNIQUE: Two views of right hip were obtained. COMPARISON: 12/07/2021 FINDINGS: Bone alignment is normal. There is no fracture. Phleboliths are noted in the pelvis. There is mild osteoarthritis of the hip. IMPRESSION: 1. Mild osteoarthritis without acute osseous abnormality. Reviewed, dictated and finalized at location A.
--- NOTE | 2022-07-14 12:45 | ECG_ITS ---
Measurements Intervals [place] Rate: 85 P: 30 ME: 160 QRS: -61 QRSD: 134 T: 33 QT: 396 QTc: 471 Interpretive Statements SINUS RHYTHM RIGHT BUNDLE BRANCH BLOCK LEFT ANTERIOR FASCICULAR BLOCK ABNORMAL ECG COMPARED TO ECG 09/11/2021 15:59:51 NO SIGNIFICANT CHANGES Electronically Signed On 07-14-2022 14:47:45 CDT by Elan Car M.D.
--- NOTE | 2022-07-14 12:53 | ED.WEAKNESS ---
HPI - Weakness General Chief complaint: Weakness Stated complaint: back pain, increased weakness/glf x days Time Seen by Provider: 07/14/22 12:37 History of Present Illness HPI Narrative: This is a 82-year-old female who tested positive for COVID today, with past medical history of hypertension hyperlipidemia, brought in by EMS to the emergency department with weakness for the past 3 weeks. She states he has felt generally weak, though has been able to eat and drink without nausea or vomiting. She says she has had multiple episodes of falls, landing on her knees every time, not striking her head, losing consciousness, experiencing chest pain or shortness of breath. She denies any new pain or focal weakness/numbness. Related Data Home Medications Medication Instructions Recorded Confirmed cholecalciferol (vitamin D3) 25 1,000 unit PO DAILY 11/03/19 07/14/22 mcg (1,000 unit) capsule omega-3 fatty acids 1,000 mg 1,000 mg PO DAILY 07/31/21 07/14/22 capsule (Fish Oil Concentrate) metformin 500 mg tablet 500 mg PO DAILY 01/06/22 07/14/22 docusate sodium 50 mg capsule 50 mg PO DAILY 01/30/22 07/14/22 vitamin B complex (B 1 tablet PO DAILY 01/30/22 07/14/22 Complex-Vitamin B12 tablet) Allergies Allergy/AdvReac Type Severity Reaction Status Date / Time lidocaine Allergy Unknown Unknown Verified 07/14/22 12:46 metronidazole Allergy Unknown Unknown Verified 07/14/22 12:46 mirabegron Allergy Unknown Unknown Verified 07/14/22 12:46 Penicillins Allergy Unknown Unknown Verified 07/14/22 12:46 Review of Systems Review of Systems: CONSTITUTIONAL: Generalized weakness denies fever, chills, or sweats. EYES: Denies visual changes, redness, or discharge. ENT: Denies rhinorrhea, congestion, sore throat, or otalgia. CARDIOVASCULAR: Denies chest pain, palpitations, or edema. RESPIRATORY: Denies cough or dyspnea. GASTROINTESTINAL: Denies abdominal pain, nausea, vomiting, or diarrhea. GENITOURINARY: Denies dysuria or hematuria. SKIN: Denies rash or itching. MUSCULOSKELETAL: Chronic low back pain unchanged denies joint pain, or myalgia. NEUROLOGIC: Denies headache, numbness, dizziness, or weakness. PSYCHIATRIC: Denies anxiety or depression. PMFSH Past Medical History Medical History History of needle biopsy Postmenopausal Screening for breast cancer Screening for osteoporosis Surgical History Surgical History History of colon resection S/P RALF-BSO Family History Family History Mother Cerebrovascular accident Family history of Alzheimer's disease Father Family history of heart disease in male family member before age 55 Sibling Family history of heart disease in male family member before age 55 Other Diabetes mellitus Family history of cardiovascular disease Hypertension Social History Social History Smoking status: Never smoker Smoking end date: 12/01/76 Alcohol intake: former Substance use: never Exam Narrative: GENERAL: Well-appearing, well-nourished, and in no acute distress. HEAD: Normocephalic, atraumatic. EYES: PERRLA and EOMI. ENT: Nares clear, no rhinorrhea or epistaxis. Mucous membranes dry. Oropharynx without tonsillar hypertrophy exudate or other lesions. NECK: Supple. No adenopathy or masses. No carotid bruits or JVD CHEST: Intermittently coughs, clear to auscultation. No respiratory distress. No wheezes rales or rhonchi HEART: Regular rate and rhythm. No murmur heard. Normal peripheral pulses. ABDOMEN: Soft, nontender, nondistended, normal active bowel sounds. EXTREMITIES: Normal range of motion. No edema. SKIN: Warm, dry, no rash. NEURO: No focal deficits. Alert and oriented x3. PSYCH: Normal mood and affect. Course Course Emergency Course: 14:16 - UA consistent with UTI. Chest x
[2022-07-14 13:08] LABS: Squamous Epithelial Cell Urine Occasional /hpf (Few); WBC Urine 31-50 /hpf
[2022-07-14] MEDS: SODIUM CHLORIDE 0.9% IV 1,000 ML 999 ML IV CONT (13:08)
[2022-07-14 13:09] LABS: Basophils Percent Auto 0.4 % (0.2-1.2); Eosinophils Percent Auto 0.3 % (0-4.4); Hematocrit 40.2 % (37.0-47.0); Hemoglobin 12.8 g/dL (12.0-15.0); Immature Granulocyte Absolute 0.02 K/mm3 (0.00-0.031); Immature Granulocyte Percent A 0.3 % (0-0.5); Lymphocytes Percent Auto 7.3 % (18.3-44.2); Mean Corpuscular HGB Conc 31.8 g/dl (32-36); Mean Corpuscular Hemoglobin 31.1 pg (26-34); Mean Corpuscular Volume 97.6 fl (80-100); Mean Platelet Volume 10.5 fl (7.4-10.4); Monocytes Absolute Auto 0.4 K/mm3 (0.1-0.6); Neutrophils Absolute Auto 5.9 K/mm3 (1.3-6.7); Neutrophils Percent Auto 85.7 % (45.5-73.1); Platelet Count Result 172 k/mm3 (150-375); Red Blood Count 4.12 M/mm3 (4.2-5.4); Red Cell Distribution Width 12.6 % (11.5-14.5); White Blood Count 6.8 K/mm3 (4.5-10.0)
[2022-07-14 13:11] LABS: Appearance Urine Slightly Cloudy (Clear); Bilirubin Urine Negative (Negative); Color Urine Yellow (Yellow); Glucose Urine UA Negative (Negative); Ketones Urine Negative (Negative); Leukocyte Esterase Ur 2+ LEU/UL (Negative); Nitrate Urine Negative (Negative); Protein Urine Negative (Negative)
[2022-07-14 13:13] LABS: Add Urine Microscopic? YES; Blood Urine Trace-Intact (Negative)
[2022-07-14 13:18] LABS: Alanine Aminotransferase 16 U/L (6-35); Albumin Level 3.9 g/dL (3.5-5.1); Alkaline Phosphatase 103 U/L (38-126); Anion Gap 8 mmol/L (8-16); Aspartate Amino Transferase 23 U/L (14-36); Bilirubin,Total 0.5 mg/dL (0.2-1.3); Blood Urea Nitrogen 24 mg/dL (7-17); Calcium 9.6 mg/dL (8.4-10.2); Carbon Dioxide 27 mmol/L (22-30); Chloride 102 mmol/L (98-107); Estimated CRCL calculation 37 ml/min; Estimated Glomerular Filt Rate 60; Glucose 121 mg/dL (65-110); Potassium 4.3 mmol/L (3.4-5.0); Sodium 137 mmol/L (137-145)
[2022-07-14 13:30] LABS: Troponin I 0.013 ng/mL (0.000-0.034)
--- NOTE | 2022-07-14 14:04 | PC.NURSE ---
Updated daughter Dolores via phone call, phone number [phone]
[2022-07-14] MEDS: CEPHALEXIN 500 MG CAPSULE PO (14:33)
--- NOTE | 2022-07-14 14:44 | PC.NURSE ---
Daughter Dolores notified pt to be admitted to hospital overnight and updated on POC.
--- NOTE | 2022-07-14 15:21 | PC.NURSE ---
report received from [place] LEE ed
--- NOTE | 2022-07-14 15:28 | PC.NURSE ---
Daughter called and notified of pt transfer to 319.
--- NOTE | 2022-07-14 15:32 | PC.NURSE ---
clarified medication with daughter Dolores via telephone.
--- NOTE | 2022-07-14 16:41 | PC.NURSE ---
This patient, Kathy Valdez, was admitted to 3 Med Surg Room 319-01. Patient/family oriented to hospital policies and general routines including ID bracelet, bed and alarms, visiting hours, pain management, procedures, bathroom and other care routines, personal items, smoking policy, room service/diet, and visiting hours. Information on how to activate the Rapid Response Team has been discussed. Patient/Family are encouraged to report perceived risks to care and to ask questions if they do not understand what they are told or what they should do. arrived at 4020
--- NOTE | 2022-07-14 18:57 | PC.NURSE ---
pt states had bm today
--- NOTE | 2022-07-14 22:57 | PM.IMHP ---
H&P: HPI History of Present Illness Date/Time: 07/14/22 22:57 Chief Complaint: Falls and weakness Narrative: This is a 82-year-old female patient who tested positive for COVID today. She does have a history of dementia and she has a history of chronic falls. There are multiple references for the last several months that she has been falling. However the patient has been feeling weak for the last 3 weeks. The patient also has a history of diabetes. The patient denies any shortness of breath or any chest pain. She is able to answer questions without difficulty. She states that she lives home alone. The patient was found have a urinary tract infection today. She was started on IV fluids and Keflex. The patient is being admitted to observation status on 07/14/2022. Review of Systems Review of Systems: See history of present All systems reviewed & are unremarkable except as noted in HPI and below Constitutional: Constitutional: Reports as per HPI and Reports no additional constitutional complaints Eyes: Eyes: Reports as per HPI and Reports no additional eye complaints ENT: Reports system reviewed and no additional complaints, except as documented and Reports Normal hearing present Cardiovascular: Cardiovascular: Reports no additional cardiovascular complaints Respiratory: Respiratory: Reports no additional respiratory complaints and Reports no additional respiratory complaints Gastrointestinal: Gastrointestinal: Reports as per HPI and Reports no additional gastrointestinal complaints Musculoskeletal: Musculoskeletal: Reports no additional musculoskeletal complaints Integumentary/Breasts: Skin/Breast: Reports system reviewed and no additional complaints, except as docu and Reports as per HPI Neurologic: Reports system reviewed and no additional complaints, except as documented, Reports as per HPI and Reports Normal hearing present Psychiatric: Psychiatric: Reports no additional psychiatric complaints and Reports as per HPI Endocrine: Endocrine: Reports no additional endocrine complaints Hematologic/Lymphatic: Hematologic/Lymphatic: Reports no additional hematologic/lymphatic complaints Allergic/Immunologic: Allergic/Immunologic: Reports no additional allergic/immunologic complaints [facility] Past Medical History Medical History (Updated 07/14/22 @ 23:05 by Dolores Olivares NP) Chronic GERD Dementia Essential (primary) hypertension History of needle biopsy Hyperlipidemia, unspecified Hypothyroidism, unspecified Postmenopausal Screening for breast cancer Screening for osteoporosis TIA (transient ischemic attack) Type 2 diabetes mellitus with diabetic neuropathy, unspecified Surgical History Surgical History (Updated 07/14/22 @ 23:05 by Dolores Olivares NP) H/O toe surgery X3 History of colon resection History of D&C S/P RALF-BSO Family History Family History Mother Cerebrovascular accident Family history of Alzheimer's disease Father Family history of heart disease in male family member before age 55 Sibling Family history of heart disease in male family member before age 55 Other Diabetes mellitus Family history of cardiovascular disease Hypertension Social History Social History (Updated 07/14/22 @ 23:07 by oDlores Olivares NP) Social History: The patient tells me that 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 She is listed as being on her face sheet but the patient tells me she is . The patient has 1 daughter named Dolores who is the power scrap metal burner. The patient is a lifelong nonsmoker. Code status full code Smoking status: Never smoker Smoking end date: 12/01/76 Alcohol intake: never Substance use: never Substance use type: does not use Spiritual care concerns: No Meds Home Medications and Allergies Home Medications Medication Instructions Recorded Confirmed Type c
[2022-07-14 23:42] LABS: Basophils Percent Auto 0.4 % (0.2-1.2); Eosinophils Percent Auto 0.4 % (0-4.4); Hematocrit 37.1 % (37.0-47.0); Hemoglobin 12.1 g/dL (12.0-15.0); Immature Granulocyte Absolute 0.02 K/mm3 (0.00-0.031); Immature Granulocyte Percent A 0.4 % (0-0.5); Lymphocytes Absolute Auto 0.83 K/mm3 (0.9-3.2); Lymphocytes Percent Auto 15.4 % (18.3-44.2); Mean Corpuscular HGB Conc 32.6 g/dl (32-36); Mean Corpuscular Hemoglobin 31.5 pg (26-34); Mean Corpuscular Volume 96.6 fl (80-100); Mean Platelet Volume 10.9 fl (7.4-10.4); Monocytes Absolute Auto 0.4 K/mm3 (0.1-0.6); Monocytes Percent Auto 7.4 % (2.6-8.5); Neutrophils Absolute Auto 4.1 K/mm3 (1.3-6.7); Platelet Count Result 158 k/mm3 (150-375); Red Blood Count 3.84 M/mm3 (4.2-5.4); Red Cell Distribution Width 12.5 % (11.5-14.5); White Blood Count 5.4 K/mm3 (4.5-10.0)
[2022-07-14 23:50] LABS: Alanine Aminotransferase 18 U/L (6-35); Aspartate Amino Transferase 30 U/L (14-36); Estimated CRCL calculation 49 ml/min; Estimated Glomerular Filt Rate > 60
[2022-07-15] VITALS (8 sets, daily range): BP systolic 95–146; BP diastolic 60–94; PULSE 63–84; RESP 14–20; TEMP 36.4–37; O2SAT 93–97
[2022-07-15 06:08] LABS: Basophils Percent Auto 0.5 % (0.2-1.2); Eosinophils Percent Auto 0.2 % (0-4.4); Hematocrit 38.5 % (37.0-47.0); Hemoglobin 12.7 g/dL (12.0-15.0); Immature Granulocyte Absolute 0.01 K/mm3 (0.00-0.031); Immature Granulocyte Percent A 0.2 % (0-0.5); Lymphocytes Absolute Auto 0.83 K/mm3 (0.9-3.2); Lymphocytes Percent Auto 14.6 % (18.3-44.2); Mean Corpuscular Hemoglobin 31.8 pg (26-34); Mean Corpuscular Volume 96.3 fl (80-100); Mean Platelet Volume 10.3 fl (7.4-10.4); Monocytes Absolute Auto 0.4 K/mm3 (0.1-0.6); Monocytes Percent Auto 7.2 % (2.6-8.5); Neutrophils Absolute Auto 4.4 K/mm3 (1.3-6.7); Neutrophils Percent Auto 77.3 % (45.5-73.1); Platelet Count Result 158 k/mm3 (150-375); Red Cell Distribution Width 12.4 % (11.5-14.5); White Blood Count 5.7 K/mm3 (4.5-10.0)
[2022-07-15 06:18] LABS: Alanine Aminotransferase 16 U/L (6-35); Anion Gap 8 mmol/L (8-16); Aspartate Amino Transferase 25 U/L (14-36); Blood Urea Nitrogen 18 mg/dL (7-17); Calcium 8.8 mg/dL (8.4-10.2); Carbon Dioxide 25 mmol/L (22-30); Chloride 99 mmol/L (98-107); Estimated CRCL calculation 49 ml/min; Estimated Glomerular Filt Rate > 60; Glucose 110 mg/dL (65-110); Potassium 3.6 mmol/L (3.4-5.0); Sodium 132 mmol/L (137-145)
[2022-07-15 06:20] LABS: Hemoglobin A1C 6.5 % (<5.7)
[2022-07-15 08:39] LABS: Glucose Point of Care 117 mg/dl (65-105)
[2022-07-15] MEDS: CALCIUM CARBONATE (OSCAL) 500 MG TABLET PO (10:27)
[2022-07-15] MEDS: CHOLECALCIFEROL 1,000 UNITS TABLET 1000 UNITS PO (10:27)
[2022-07-15] MEDS: SERTRALINE HCL 50 MG TABLET PO (10:27)
[2022-07-15] MEDS: PANTOPRAZOLE 40 MG TABLET PO ×2 (10:27→20:25)
[2022-07-15] MEDS: MEMANTINE 10 MG TABLET PO (10:27)
[2022-07-15] MEDS: LOSARTAN POTASSIUM 50 MG TABLET PO (10:27)
[2022-07-15] MEDS: BARICITINIB 2 MG TABLET 4 MG PO (10:28)
[2022-07-15] MEDS: DOCUSATE SODIUM 100 MG CAPSULE PO (10:28)
[2022-07-15] MEDS: SIMVASTATIN 20 MG TABLET 40 MG PO (10:28)
[2022-07-15] MEDS: ENOXAPARIN 40 MG/0.4 ML SYRINGE SUB-Q (10:29)
[2022-07-15 11:34] LABS: Glucose Point of Care 126 mg/dl (65-105)
[2022-07-15 12:43] LABS: SARS-CoV-2 RNA PCR Positive
--- NOTE | 2022-07-15 13:54 | PM.IMPN ---
Progress Note: A&P Assessment and Plan (1) Acute UTI: Code(s): N39.0 - Urinary tract infection, site not specified Status: Acute (2) Type 2 diabetes mellitus with diabetic neuropathy, unspecified: Qualifiers: Diabetes mellitus jail insulin use: without local intermodal truck driver use Qualified Code(s): E11.40 - Type 2 diabetes mellitus with diabetic neuropathy, unspecified Code(s): E11.40 - Type 2 diabetes mellitus with diabetic neuropathy, unspecified Status: Acute (3) COVID-19: Code(s): U07.1 - COVID-19 Status: Acute (4) Chronic GERD: Code(s): K21.9 - Gastro-esophageal reflux disease without esophagitis Status: Acute (5) Essential (primary) hypertension: Code(s): I10 - Essential (primary) hypertension Status: Acute (6) Hyperlipidemia, unspecified: Code(s): E78.5 - Hyperlipidemia, unspecified Status: Acute (7) Hypothyroidism, unspecified: Qualifiers: Hypothyroidism type: acquired Qualified Code(s): E03.9 - Hypothyroidism, unspecified Code(s): E03.9 - Hypothyroidism, unspecified Status: Acute (8) Dementia: Code(s): F03.90 - Unspecified dementia without behavioral disturbance Status: Acute (9) Weakness generalized: Code(s): R53.1 - Weakness Status: Acute (10) Reactive depression (situational): Code(s): F32.9 - Major depressive disorder, single episode, unspecified Status: Acute (11) Vertebral compression fracture: Code(s): M48.50XA - Collapsed vertebra, not elsewhere classified, site unspecified, initial encounter for fracture Status: Acute (12) Pure hypercholesterolemia: Code(s): E78.00 - Pure hypercholesterolemia, unspecified Status: Acute (13) Mild cognitive impairment: Code(s): G31.84 - Mild cognitive impairment, so stated Status: Acute Plan # UTI on Rocephin urine culture pending # type 2 diabetes mellitus with diabetic neuropathy: Hold metformin SSI Accu-Cheks AC and HS # COVID-19 on Decadron continue with baricitinib. On room air # chronic GERD omeprazole # hypertension: Losartan # hyperlipidemia simvastatin # hypothyroidism # dementia on Namenda # generalized weakness PT OT # recurrent falls unclear etiology. Diabetic neuropathy dementia with behavior problem could be contributory too. # confusion likely related to underlying dementia. Continue to monitor # fall 07/15/2022 will scan her head and cervical spine. # right knee and hip pain will get x-rays #recurrent depression # history of vertebral compression fracture on calcium vitamin-D supplement # DVT prophylaxis Lovenox # code status full code Subjective Date/time seen: 07/15/22 13:54 Interval history: HPI:This is a 82-year-old female patient who tested positive for COVID today.? She does have a history of dementia and she has a history of chronic falls.? There are multiple references for the last several months that she has been falling.? However the patient has been feeling weak for the last 3 weeks.? The patient also has a history of diabetes.? The patient denies any shortness of breath or any chest pain.? She is able to answer questions without difficulty.? She states that she lives home alone.? The patient was found have a urinary tract infection today.? She was started on IV fluids and Keflex.? The patient is being admitted to observation status on 07/14/2022. 07/15/2022 she was sitting on the chair and see if was found on the floor. She complained of right hip pain and right knee pain since the fall. She was put back to bed. She has been confused as well. Review of Systems Review of Systems: All systems reviewed & are unremarkable except as noted in HPI and below Exam Narrative: GENERAL: Thin built, confused, and in no acute distress. HEAD: Normocephalic, atraumatic. EYES: PERRLA and EOMI. ENT: Nares clear, no rhinorrhea or epistaxis.? Mucous membrane
[2022-07-15 18:36] LABS: Glucose Point of Care 148 mg/dl (65-105)
[2022-07-15 20:47] LABS: Glucose Point of Care 157 mg/dl (65-105)
[2022-07-16] VITALS (7 sets, daily range): BP systolic 107–130; BP diastolic 52–68; PULSE 55–69; RESP 16–20; TEMP 35.8–36.9; O2SAT 91–97
[2022-07-16 06:26] LABS: Basophils Percent Auto 0.3 % (0.2-1.2); Eosinophils Percent Auto 0.3 % (0-4.4); Hematocrit 37.9 % (37.0-47.0); Hemoglobin 12.4 g/dL (12.0-15.0); Immature Granulocyte Absolute 0.02 K/mm3 (0.00-0.031); Immature Granulocyte Percent A 0.6 % (0-0.5); Lymphocytes Percent Auto 39.8 % (18.3-44.2); Mean Corpuscular HGB Conc 32.7 g/dl (32-36); Mean Corpuscular Hemoglobin 31.6 pg (26-34); Mean Corpuscular Volume 96.7 fl (80-100); Mean Platelet Volume 10.8 fl (7.4-10.4); Monocytes Absolute Auto 0.3 K/mm3 (0.1-0.6); Monocytes Percent Auto 7.1 % (2.6-8.5); Neutrophils Absolute Auto 1.8 K/mm3 (1.3-6.7); Neutrophils Percent Auto 51.9 % (45.5-73.1); Platelet Count Result 153 k/mm3 (150-375); Red Blood Count 3.92 M/mm3 (4.2-5.4); Red Cell Distribution Width 12.3 % (11.5-14.5); White Blood Count 3.5 K/mm3 (4.5-10.0)
[2022-07-16 06:34] LABS: Alanine Aminotransferase 17 U/L (6-35); Albumin Level 3.6 g/dL (3.5-5.1); Alkaline Phosphatase 86 U/L (38-126); Anion Gap 9 mmol/L (8-16); Aspartate Amino Transferase 25 U/L (14-36); Bilirubin,Total 0.2 mg/dL (0.2-1.3); Blood Urea Nitrogen 16 mg/dL (7-17); Calcium 8.5 mg/dL (8.4-10.2); Carbon Dioxide 23 mmol/L (22-30); Chloride 102 mmol/L (98-107); Estimated CRCL calculation 49 ml/min; Estimated Glomerular Filt Rate > 60; Glucose 105 mg/dL (65-110); Magnesium 1.6 mg/dL (1.6-2.3); Potassium 3.7 mmol/L (3.4-5.0); Sodium 134 mmol/L (137-145)
[2022-07-16 07:48] LABS: Glucose Point of Care 126 mg/dl (65-105)
[2022-07-16] MEDS: ENOXAPARIN 40 MG/0.4 ML SYRINGE SUB-Q (09:36)
[2022-07-16] MEDS: DOCUSATE SODIUM 100 MG CAPSULE PO (09:37)
[2022-07-16] MEDS: VITAMIN B COMPLEX CAPSULE 1 CAP PO (09:38)
[2022-07-16] MEDS: SIMVASTATIN 20 MG TABLET 40 MG PO (09:39)
[2022-07-16] MEDS: PANTOPRAZOLE 40 MG TABLET PO ×2 (09:39→20:16)
[2022-07-16] MEDS: CALCIUM CARBONATE (OSCAL) 500 MG TABLET PO (09:39)
[2022-07-16] MEDS: MEMANTINE 10 MG TABLET PO (09:39)
[2022-07-16] MEDS: SERTRALINE HCL 50 MG TABLET PO (09:39)
[2022-07-16] MEDS: LOSARTAN POTASSIUM 50 MG TABLET PO (09:39)
[2022-07-16] MEDS: OMEGA 3 POLYUNSAT FATTY ACIDS 1 GM CAP PO (09:39)
[2022-07-16] MEDS: CHOLECALCIFEROL 1,000 UNITS TABLET 1000 UNITS PO (09:40)
[2022-07-16] MEDS: BARICITINIB 2 MG TABLET 4 MG PO (11:38)
[2022-07-16 11:44] LABS: Glucose Point of Care 194 mg/dl (65-105)
[2022-07-16 16:35] LABS: Glucose Point of Care 189 mg/dl (65-105)
--- NOTE | 2022-07-16 17:53 | PM.IMPN ---
Progress Note: A&P Assessment and Plan (1) Acute UTI: Code(s): N39.0 - Urinary tract infection, site not specified Status: Acute (2) Type 2 diabetes mellitus with diabetic neuropathy, unspecified: Qualifiers: Diabetes mellitus penitentiary insulin use: without ferry terminal supervisor use Qualified Code(s): E11.40 - Type 2 diabetes mellitus with diabetic neuropathy, unspecified Code(s): E11.40 - Type 2 diabetes mellitus with diabetic neuropathy, unspecified Status: Acute (3) COVID-19: Code(s): U07.1 - COVID-19 Status: Acute (4) Chronic GERD: Code(s): K21.9 - Gastro-esophageal reflux disease without esophagitis Status: Acute (5) Essential (primary) hypertension: Code(s): I10 - Essential (primary) hypertension Status: Acute (6) Hyperlipidemia, unspecified: Code(s): E78.5 - Hyperlipidemia, unspecified Status: Acute (7) Hypothyroidism, unspecified: Qualifiers: Hypothyroidism type: acquired Qualified Code(s): E03.9 - Hypothyroidism, unspecified Code(s): E03.9 - Hypothyroidism, unspecified Status: Acute (8) Dementia: Code(s): F03.90 - Unspecified dementia without behavioral disturbance Status: Acute (9) Weakness generalized: Code(s): R53.1 - Weakness Status: Acute (10) Reactive depression (situational): Code(s): F32.9 - Major depressive disorder, single episode, unspecified Status: Acute (11) Vertebral compression fracture: Code(s): M48.50XA - Collapsed vertebra, not elsewhere classified, site unspecified, initial encounter for fracture Status: Acute (12) Pure hypercholesterolemia: Code(s): E78.00 - Pure hypercholesterolemia, unspecified Status: Acute (13) Mild cognitive impairment: Code(s): G31.84 - Mild cognitive impairment, so stated Status: Acute Plan # UTI on Rocephin urine culture with mixed genital servando isolated. Continue Rocephin can change to oral discharge # type 2 diabetes mellitus with diabetic neuropathy: Hold metformin SSI Accu-Cheks AC and HS # COVID-19 on Decadron continue with baricitinib. On room air and remains stable. Can continue Decadron for total 10 days. Baricitinib to discontinue at discharge # chronic GERD omeprazole # hypertension: Losartan # hyperlipidemia simvastatin # hypothyroidism # dementia on Namenda # generalized weakness PT OT # recurrent falls unclear etiology. Diabetic neuropathy dementia with behavior problem could be contributory too. # confusion likely related to underlying dementia. Continue to monitor # fall 07/15/2022 CT head and cervical spine reviewed no acute intracranial injury or fractures # right knee and hip pain x-rays negative for any fracture #recurrent depression # history of vertebral compression fracture on calcium vitamin-D supplement # DVT prophylaxis Lovenox # code status full code # disposition PT OT to see likely need further rehabilitation and half-way placement Subjective Date/time seen: 07/16/22 17:53 Interval history: HPI:This is a 82-year-old female patient who tested positive for COVID today.? She does have a history of dementia and she has a history of chronic falls.? There are multiple references for the last several months that she has been falling.? However the patient has been feeling weak for the last 3 weeks.? The patient also has a history of diabetes.? The patient denies any shortness of breath or any chest pain.? She is able to answer questions without difficulty.? She states that she lives home alone.? The patient was found have a urinary tract infection today.? She was started on IV fluids and Keflex.? The patient is being admitted to observation status on 07/14/2022. 07/15/2022 she was sitting on the chair and see if was found on the floor. She complained of right hip pain and right knee pain since the fall. She was put back to bed. She has been confused as
[2022-07-16 21:09] LABS: Glucose Point of Care 155 mg/dl (65-105)
[2022-07-17] VITALS: BP 123/66; PULSE 59; RESP 18; TEMP 36.1; O2SAT 94
[2022-07-17 04:00] VITALS: BP 133/6; PULSE 77; RESP 16; TEMP 36.3; O2SAT 96
[2022-07-17 07:43] LABS: Glucose Point of Care 91 mg/dl (65-105)
[2022-07-17 07:44] VITALS: BP 133/63; PULSE 58; RESP 16; TEMP 36.8; O2SAT 93
[2022-07-17 08:00] VITALS: PULSE 58; RESP 16; O2SAT 93
[2022-07-17] MEDS: LOSARTAN POTASSIUM 50 MG TABLET PO (08:00)
[2022-07-17 08:19] LABS: Basophils Percent Auto 0.4 % (0.2-1.2); Eosinophils Percent Auto 0.6 % (0-4.4); Hematocrit 37.6 % (37.0-47.0); Hemoglobin 12.5 g/dL (12.0-15.0); Immature Granulocyte Absolute 0.01 K/mm3 (0.00-0.031); Immature Granulocyte Percent A 0.2 % (0-0.5); Lymphocytes Absolute Auto 1.93 K/mm3 (0.9-3.2); Lymphocytes Percent Auto 37.6 % (18.3-44.2); Mean Corpuscular HGB Conc 33.2 g/dl (32-36); Mean Corpuscular Volume 96.2 fl (80-100); Mean Platelet Volume 10.5 fl (7.4-10.4); Monocytes Absolute Auto 0.3 K/mm3 (0.1-0.6); Neutrophils Absolute Auto 2.8 K/mm3 (1.3-6.7); Neutrophils Percent Auto 55.2 % (45.5-73.1); Platelet Count Result 172 k/mm3 (150-375); Red Blood Count 3.91 M/mm3 (4.2-5.4); Red Cell Distribution Width 12.3 % (11.5-14.5); White Blood Count 5.1 K/mm3 (4.5-10.0)
[2022-07-17 08:40] LABS: Alanine Aminotransferase 19 U/L (6-35); Albumin Level 3.5 g/dL (3.5-5.1); Alkaline Phosphatase 83 U/L (38-126); Anion Gap 7 mmol/L (8-16); Aspartate Amino Transferase 31 U/L (14-36); Bilirubin,Total 0.2 mg/dL (0.2-1.3); Blood Urea Nitrogen 18 mg/dL (7-17); Calcium 9.3 mg/dL (8.4-10.2); Carbon Dioxide 28 mmol/L (22-30); Chloride 100 mmol/L (98-107); Estimated CRCL calculation 43 ml/min; Estimated Glomerular Filt Rate > 60; Glucose 88 mg/dL (65-110); Magnesium 1.7 mg/dL (1.6-2.3); Potassium 3.5 mmol/L (3.4-5.0); Sodium 135 mmol/L (137-145)
[2022-07-17] MEDS: DOCUSATE SODIUM 100 MG CAPSULE PO (08:42)
[2022-07-17] MEDS: OMEGA 3 POLYUNSAT FATTY ACIDS 1 GM CAP PO (08:42)
[2022-07-17] MEDS: CHOLECALCIFEROL 1,000 UNITS TABLET 1000 UNITS PO (08:42)
[2022-07-17] MEDS: ENOXAPARIN 40 MG/0.4 ML SYRINGE SUB-Q (08:42)
[2022-07-17] MEDS: CALCIUM CARBONATE (OSCAL) 500 MG TABLET PO (08:42)
[2022-07-17] MEDS: PANTOPRAZOLE 40 MG TABLET PO (08:42)
[2022-07-17] MEDS: SIMVASTATIN 20 MG TABLET 40 MG PO (08:42)
[2022-07-17] MEDS: VITAMIN B COMPLEX CAPSULE 1 CAP PO (08:42)
[2022-07-17] MEDS: MEMANTINE 10 MG TABLET PO (08:42)
[2022-07-17] MEDS: SERTRALINE HCL 50 MG TABLET PO (08:42)
[2022-07-17] MEDS: BARICITINIB 2 MG TABLET 4 MG PO (10:07)
[2022-07-17 11:22] LABS: Glucose Point of Care 151 mg/dl (65-105)
--- NOTE | 2022-07-17 11:51 | PM.DS ---
DS: Admitting Diagnosis Discharge Date 07/17/2022 Admitting Diagnosis UTI and COVID positive DS: Discharge Diagnosis Discharge Diagnosis (1) Acute UTI: Code(s): N39.0 - Urinary tract infection, site not specified Status: Acute (2) Type 2 diabetes mellitus with diabetic neuropathy, unspecified: Qualifiers: Diabetes mellitus fpc insulin use: without lobsterman use Qualified Code(s): E11.40 - Type 2 diabetes mellitus with diabetic neuropathy, unspecified Code(s): E11.40 - Type 2 diabetes mellitus with diabetic neuropathy, unspecified Status: Acute (3) COVID-19: Code(s): U07.1 - COVID-19 Status: Acute (4) Chronic GERD: Code(s): K21.9 - Gastro-esophageal reflux disease without esophagitis Status: Acute (5) Essential (primary) hypertension: Code(s): I10 - Essential (primary) hypertension Status: Acute (6) Hyperlipidemia, unspecified: Code(s): E78.5 - Hyperlipidemia, unspecified Status: Acute (7) Hypothyroidism, unspecified: Qualifiers: Hypothyroidism type: acquired Qualified Code(s): E03.9 - Hypothyroidism, unspecified Code(s): E03.9 - Hypothyroidism, unspecified Status: Acute (8) Dementia: Code(s): F03.90 - Unspecified dementia without behavioral disturbance Status: Acute (9) Weakness generalized: Code(s): R53.1 - Weakness Status: Acute (10) Reactive depression (situational): Code(s): F32.9 - Major depressive disorder, single episode, unspecified Status: Acute (11) Vertebral compression fracture: Code(s): M48.50XA - Collapsed vertebra, not elsewhere classified, site unspecified, initial encounter for fracture Status: Acute (12) Pure hypercholesterolemia: Code(s): E78.00 - Pure hypercholesterolemia, unspecified Status: Acute (13) Mild cognitive impairment: Code(s): G31.84 - Mild cognitive impairment, so stated Status: Acute Plan # UTI on Rocephin urine culture with mixed genital servando isolated. Continue Rocephin can change to oral discharge # type 2 diabetes mellitus with diabetic neuropathy: Hold metformin SSI Accu-Cheks AC and HS # COVID-19 on Decadron continue with baricitinib. On room air and remains stable. Can continue Decadron for total 10 days. Baricitinib to discontinue at discharge # chronic GERD omeprazole # hypertension: Losartan # hyperlipidemia simvastatin # hypothyroidism # dementia on Namenda # generalized weakness PT OT # recurrent falls unclear etiology. Diabetic neuropathy dementia with behavior problem could be contributory too. # confusion likely related to underlying dementia. Continue to monitor # fall 07/15/2022 CT head and cervical spine reviewed no acute intracranial injury or fractures # right knee and hip pain x-rays negative for any fracture #recurrent depression # history of vertebral compression fracture on calcium vitamin-D supplement # DVT prophylaxis Lovenox # code status full code # disposition PT OT to see likely need further rehabilitation and snf placement DS: Summary Hospital Course Hospital Course: 82-year-old female with past medical history significant for dementia and chronic falls is presenting with COVID positive status and generalized weakness, progressively worsening. She lives home alone and was found to have a UTI in the ER and started on IV fluids and Keflex. She was also started on Decadron and Olumiant. She was switched to IV Rocephin on admission. Other home medications were continued. She remained on room air and stable. All symptoms appeared to resolve. Urine culture came back with mixed genital servando so the Rocephin was discontinued. PT was consulted and recommended SNF at discharge. Patient adamantly refused home health care was arranged instead. Patient was discharged in good condition to complete a total of 10 days of Decadron. Time Spent with
[2022-07-17 12:00] VITALS: BP 112/68; PULSE 68; RESP 16; TEMP 36.9; O2SAT 92
--- NOTE | 2022-07-17 12:03 | PC.NURSE ---
discharge paperwork explained to daughter Dolores via telephone, daughter to seed cone picker at 1330, IV removed, explained discharge paperwork to pt and removed IV.
== END 2022-07-17 13:30 | disposition home health service (06) ==
LOC: ANHED 13:12 → ANH3MEDSUR 15:13
PROVIDERS: Internal Medicine; Nurse Practitioner; Admitting Provider Chiropractor; Emergency Provider Preventive Medicine Aerospace Medicine; PCP Internal Medicine; Visit Provider Student in an Organized Health Care Education/Training Program
DX: U07.1 COVID-19 (principal); N39.0 Urinary tract infection, site not specified; E11.40 Type 2 diabetes mellitus with diabetic neuropathy, unspecified; K21.9 Gastro-esophageal reflux disease without esophagitis; I10 Essential (primary) hypertension; E78.00 Pure hypercholesterolemia, unspecified; E03.9 Hypothyroidism, unspecified; F03.90 Unspecified dementia, unspecified severity, without behavioral disturbance, psychotic disturbance, mood disturbance, and anxiety; R53.1 Weakness; F32.9 Major depressive disorder, single episode, unspecified; R29.6 Repeated falls; M54.50 Low back pain, unspecified; I45.2 Bifascicular block; M16.11 Unilateral primary osteoarthritis, right hip; R90.82 White matter disease, unspecified; M47.892 Other spondylosis, cervical region; Z90.49 Acquired absence of other specified parts of digestive tract; Z90.710 Acquired absence of both cervix and uterus; Z90.722 Acquired absence of ovaries, bilateral; Z86.73 Personal history of transient ischemic attack (TIA), and cerebral infarction without residual deficits; Z79.84 Long term (current) use of oral hypoglycemic drugs; Z79.899 Other long term (current) drug therapy; Z82.49 Family history of ischemic heart disease and other diseases of the circulatory system
CPT/HCPCS: 36415; 70450; 71045; 72125; 73502; 73560; 80048; 80053; 81001; 82565; 82948; 83036; 83735; 84443; 84450; 84460; 84484; 85025; 87086; 87088; 93005; 96361; 96365; 96372; 96375; 96376; 97110; 97116; 97161; 97166; 99285; A9270; C9803; G0378; J0696; J1100; J1650; J7030; U0003; U0005

== ENCOUNTER 2022-09-04 08:10 | Outpatient (CLI) | payer MEDICARE, SELFPAY ==
[2022-09-04 08:41] LABS: Hemoglobin A1C 6.9 % (<5.7)
[2022-09-04 08:42] LABS: Alanine Aminotransferase 25 U/L (6-35); Albumin Level 4.2 g/dL (3.5-5.1); Alkaline Phosphatase 126 U/L (38-126); Anion Gap 10 mmol/L (8-16); Aspartate Amino Transferase 27 U/L (14-36); Bilirubin,Total 0.4 mg/dL (0.2-1.3); Blood Urea Nitrogen 18 mg/dL (7-17); Calcium 9.4 mg/dL (8.4-10.2); Carbon Dioxide 21 mmol/L (22-30); Chloride 108 mmol/L (98-107); Cholesterol 134 mg/dL (0-200); Estimated Glomerular Filt Rate > 60; Glucose 153 mg/dL (65-110); HDL Direct 36 mg/dL; Sodium 139 mmol/L (137-145); Triglycerides 160 mg/dL (<150)
[2022-09-04 08:53] LABS: LDL Cholesterol Direct 64 mg/dL
== END 2022-09-04 08:11 | disposition home or self-care (01) ==
PROVIDERS: PCP Internal Medicine; Visit Provider Nurse Practitioner
DX: E11.9 Type 2 diabetes mellitus without complications (principal); E78.5 Hyperlipidemia, unspecified
CPT/HCPCS: 36415; 80053; 80061; 83036

== ENCOUNTER 2022-10-28 15:46 | Outpatient (CLI) | payer MEDICARE, SELFPAY ==
--- NOTE | ~2022-10-28 | XR_ITS ---
XR chest 2V DATE: 10/28/2022 16:05 INDICATION: Cough TECHNIQUE: PA and lateral views COMPARISON: 07/14/2022 portable AP chest FINDINGS: Normal heart size. No hilar or mediastinal enlargement. No pulmonary infiltrate or consolidation, pleural effusion or pulmonary vascular congestion or pneumo thorax is detected. Multiple air-fluid levels of the bowel are noted. Compression fracture deformity is suggested at L1. There is osteopenia. There is dextro scoliosis and degenerative spurring of the thoracic spine. IMPRESSION: No active cardiopulmonary disease Multiple bowel air-fluid levels Reviewed, dictated and finalized at location B. BACK OPERATOR
== END 2022-10-28 15:47 | disposition home or self-care (01) ==
LOC: ANHIMG 15:50
PROVIDERS: PCP Internal Medicine; Visit Provider Internal Medicine
DX: J40 Bronchitis, not specified as acute or chronic (principal)
CPT/HCPCS: 71046

== ENCOUNTER 2023-01-20 09:51 | Observation (INO) | payer MEDICARE, SELFPAY ==
[2023-01-20] VITALS (9 sets, daily range): BP systolic 118–147; BP diastolic 54–92; PULSE 67–92; RESP 15–18; TEMP 36.3–36.6; O2SAT 91–98; BMI 26.2
--- NOTE | ~2023-01-20 | CT_ITS ---
EXAMINATION: CTA chest PE protocol DATE: 01/20/2023 15:19 INDICATION: Pulmonary embolism. Mid chest pain. TECHNIQUE: Computed tomography (CT) pulmonary angiogram of the chest was performed with 100 mL Omnipa que-350 intravenous contrast. Additional 3D reconstructions utilizing coronal maximum intensity proje ction (MIP) were performed. Automated exposure control and iterative reconstruction technique were em ployed. The dose-length product was 256.07 mGy-cm. COMPARISON: None FINDINGS: Excellent contrast opacification of the pulmonary arteries. Minimal scattered respiratory motion yogi fact which does not significantly limit evaluation. No pulmonary embolism. Bilateral mild dependent a telectasis. Additional bibasilar discoid atelectasis in the lingula, right middle and bilateral lower lobes. No pneumonia, pulmonary edema or pleural effusion. Heart size is normal. Atherosclerotic janes nary artery calcification on the left anterior descending coronary artery. No pericardial effusion. T horacic aorta is normal in caliber with no dissection. No pathologically enlarged thoracic lymphadeno kajal. A few low-attenuation hepatic cysts with smooth margins, the largest in the right hepatic lobe measuring up to 2.2 cm in maximal length on the sagittal images. 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 Increase in size of a now small to moderate size sliding-type hiatal hernia. Single diverticulum along the proximal descending colon without adjacent inflammatory stranding to suggest diverticuliti s. Partially visualized 4.4 cm duodenal diverticulum. Slight S-shaped curvature of the thoracic spine with moderate spondylosis. IMPRESSION: 1. No pulmonary embolism. 2. Mild dependent and bibasilar atelectasis. No other acute cardiopulmonary disease. 2. Small to moderate-sized sliding-type hiatal hernia. Reviewed, dictated and finalized at location A. OSOFT INFRASTRUCTURE CONSULTANT IMPRESSION: 1. No pulmonary embolism. 2. Mild dependent and bibasilar atelectasis. No other acute cardiopulmonary dis ease. 2. Small to moderate-sized sliding-type hiatal hernia.
--- NOTE | ~2023-01-20 | XR_ITS ---
EXAMINATION: XR chest 2V 01/20/2023 10:19 INDICATION: Midline chest pain PROCEDURE: 2 view chest COMPARISON: 10/28/2022 FINDINGS: The lungs are clear. The cardiomediastinal silhouette is within normal limits. There are no pleural effusions. There is no pneumothorax suspected. IMPRESSION: 1: NO ACUTE CARDIOPULMONARY DISEASE. Reviewed, dictated and finalized at location B. IAL DELIVERY CLERK
--- NOTE | ~2023-01-20 | NM_ITS ---
EXAMINATION: NM beatrice stress w perfusion DATE: 01/21/2023 13:28 INDICATION: Chest pain TECHNIQUE: Rest images were obtained following intravenous administration of 9 mCi Tc99m tetrofosmin (Myoview). The patient was infused intravenously with Lexiscan (Regadenoson). Then, 37 mCi Tc99m tetr ofosmin (Myoview) was administered intravenously, and stress images were obtained. Data was reconstru cted into short axis and horizontal and vertical long axis SPECT images. Gated SPECT images were also obtained. COMPARISON: 08/13/2021 FINDINGS: New small mild reversible perfusion defect at the junction of the mid inferior and mid infe roseptal segments. No nonreversible perfusion defects to suggest infarct. There is normal left ventri cular chamber size, wall motion and ejection fraction. Left ventricular ejection fraction measures > 70%. IMPRESSION: 1. New small mild reversible perfusion defect consistent with ischemia centered at the junction of th e mid inferior and mid inferoseptal segments. 2. Left ventricular ejection fraction measuring >70%. Reviewed, dictated and finalized at location A. LING MACHINE OPERATOR IMPRESSION: 1. New small mild reversible perfusion defect consistent with ischemia centered at the junction of the mid inferior and mid inferoseptal segments. 2. Left ventricular ejection fraction measuring >70%.
--- NOTE | ~2023-01-20 | US_ITS ---
EXAMINATION: US venous doppler [facility] DATE: 01/21/2023 16:06 INDICATION: pain, +DD . TECHNIQUE: Grayscale images without and with compression and Doppler images of the bilateral lower ex tremity veins were obtained. COMPARISON: None FINDINGS: The right common femoral vein, profunda (deep) femoral vein, femoral vein, popliteal vein, peroneal v ein, posterior tibial veins, gastrocnemius vein, and greater saphenous vein are patent. The left common femoral vein, profunda femoral vein, femoral vein, popliteal vein, peroneal vein, pos terior tibial veins, gastrocnemius vein, and greater saphenous vein are patent. IMPRESSION: 1. Patent bilateral lower extremity veins. No evidence of deep venous thrombosis. Reviewed, dictated and finalized at location K. MAKER MAP IMPRESSION: 1. Patent bilateral lower extremity veins. No evidence of deep venous thrombos is.
--- NOTE | 2023-01-20 09:52 | ECG_ITS ---
Measurements Intervals [place] Rate: 83 P: 83 [place]: 142 QRS: -77 QRSD: 134 T: 24 QT: 415 QTc: 489 Interpretive Statements SINUS RHYTHM WITH OCCASIONAL SUPRAVENTRICULAR PREMATURE COMPLEXES RIGHT BUNDLE BRANCH BLOCK [120+ ms QRS DURATION, UPRIGHT V1, 40+ ms S IN I/aVL/V4/V5/V6] LEFT ANTERIOR FASCICULAR BLOCK [QRS AXIS <= -45, QR IN I, RS IN II] ABNORMAL ECG COMPARED TO ECG 07/14/2022 12:41:24 NO SIGNIFICANT CHANGES Electronically Signed On 01-20-2023 12:48:45 INSULATION BOARD CALENDER OPERATOR by Sky Peng M.D.
[2023-01-20 10:12] LABS: Basophils Percent Auto 0.7 % (0.2-1.2); Eosinophils Absolute Auto 0.1 K/mm3 (0-0.3); Eosinophils Percent Auto 1.7 % (0-4.4); Hematocrit 42.8 % (37.0-47.0); Immature Granulocyte Absolute 0.03 K/mm3 (0.00-0.031); Immature Granulocyte Percent A 0.5 % (0-0.5); Lymphocytes Absolute Auto 1.31 K/mm3 (0.9-3.2); Lymphocytes Percent Auto 21.7 % (18.3-44.2); Mean Corpuscular HGB Conc 32.7 g/dl (32-36); Mean Corpuscular Hemoglobin 31.5 pg (26-34); Mean Corpuscular Volume 96.2 fl (80-100); Mean Platelet Volume 11.4 fl (7.4-10.4); Monocytes Absolute Auto 0.3 K/mm3 (0.1-0.6); Monocytes Percent Auto 4.8 % (2.6-8.5); Neutrophils Absolute Auto 4.3 K/mm3 (1.3-6.7); Neutrophils Percent Auto 70.6 % (45.5-73.1); Platelet Count Result 186 k/mm3 (150-375); Red Blood Count 4.45 M/mm3 (4.2-5.4); Red Cell Distribution Width 13.3 % (11.5-14.5)
[2023-01-20 10:22] LABS: Alanine Aminotransferase 19 U/L (6-35); Alkaline Phosphatase 114 U/L (38-126); Anion Gap 8 mmol/L (8-16); Aspartate Amino Transferase 22 U/L (14-36); Bilirubin,Total 0.6 mg/dL (0.2-1.3); Blood Urea Nitrogen 19 mg/dL (7-17); Calcium 8.7 mg/dL (8.4-10.2); Carbon Dioxide 21 mmol/L (22-30); Chloride 107 mmol/L (98-107); Estimated CRCL calculation 34 ml/min; Estimated Glomerular Filt Rate 60; Glucose 241 mg/dL (65-110); Lipase 86 U/L (23-300); Potassium 3.8 mmol/L (3.4-5.0); Sodium 136 mmol/L (137-145)
[2023-01-20 10:24] LABS: Partial Thromboplastin Time 23.7 SECONDS (22.3-36.8)
[2023-01-20 10:36] LABS: Troponin I < 0.012 ng/mL (0.000-0.034)
--- NOTE | 2023-01-20 12:24 | ED.CHESTPAIN ---
HPI - Chest Pain General Chief Complaint: Chest Pain Stated Complaint: mid sternal Chest pain Time Seen by Provider: 01/20/23 12:18 Source: family Limitations: dementia History of Present Illness HPI narrative: Patient is 82 years old white female brought to the emergency room by her who is telling me that patient been having intermittent chest pain for the last 4 to 5 days. Does not have more details because patient have history of dementia. He denies that the patient have any fever, chills, nausea, vomiting or other respiratory symptoms. The is telling me that patient have chronic back pain which is not different than before, which make her life less active for years. MD complaint: chest pain Related Data Home Medications Medication Instructions Recorded Confirmed cholecalciferol (vitamin D3) 25 1,000 unit PO DAILY 11/03/19 10/23/22 mcg (1,000 unit) capsule docusate sodium 50 mg capsule 50 mg PO DAILY 01/30/22 10/23/22 vitamin B complex (B 1 tablet PO DAILY 01/30/22 10/23/22 Complex-Vitamin B12 tablet) Allergies Allergy/AdvReac Type Severity Reaction Status Date / Time lidocaine Allergy Unknown Unknown Verified 01/20/23 11:24 metronidazole Allergy Unknown Unknown Verified 01/20/23 11:24 [email or web address] Allergy Unknown Unknown Verified 01/20/23 11:24 Penicillins Allergy Unknown Unknown Verified 01/20/23 11:24 Review of Systems Review of Systems: All systems reviewed & are unremarkable except as noted in HPI and below PMFSH Past Medical History Medical History Chronic GERD Dementia Essential (primary) hypertension History of needle biopsy Hyperlipidemia, unspecified Hypothyroidism, unspecified Postmenopausal Screening for breast cancer Screening for osteoporosis TIA (transient ischemic attack) Type 2 diabetes mellitus with diabetic neuropathy, unspecified Surgical History Surgical History H/O toe surgery X3 History of colon resection History of D&C S/P RALF-BSO Family History Family History Mother Cerebrovascular accident Family history of Alzheimer's disease Father Family history of heart disease in male family member before age 55 Sibling Family history of heart disease in male family member before age 55 Other Diabetes mellitus Family history of cardiovascular disease Hypertension Social History Social History Social History: The patient tells me that 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 She is listed as being on her face sheet but the patient tells me she is . The patient has 1 daughter named Dolores who is the power litigation attorney associate. The patient is a lifelong nonsmoker. Code status full code Smoking status: Never smoker Smoking end date: 12/01/76 Alcohol intake: never Substance use: never Substance use type: does not use Lack of Transportation: No Lack of Food: Never True Current Housing: I Have Housing Concerned About Future Housing: No Difficulty Paying Gas/Electric Bills: No Difficulty Paying for Meds: No Education: Bachelor's Degree Difficulty w/ Childcare or Family Care: No Living arrangements: with family Occupation/Education: retired Spiritual care concerns: No Exam Narrative: General appearance: Well-developed, well-nourished Skin: Normal color Head: Normocephalic, nontraumatic Eyes: Clear conjunctiva ENT: Oropharynx normal, ears normal, nose normal Neck: Supple, nontender Chest and respiratory: Airway patent, no respiratory distress, no accessory muscle use Heart: Regular rate/rhythm Abdomen: Soft, nontender, no organomegaly, quiet bowel sounds Vascular: Normal peripheral pulses, normal capillary refill. Musculoskeletal: Limited range of motion of the back because of chron
[2023-01-20] MEDS: ASPIRIN 81 MG CHEWABLE TABLET 324 MG PO (12:50)
[2023-01-20 13:02] LABS: NT Pro B Type Natriuretic Pept 492 pg/mL (19.9-100)
[2023-01-20 13:47] LABS: D Dimer 0.92 ug/mL (<0.48)
[2023-01-20 13:48] LABS: Troponin I < 0.012 ng/mL (0.000-0.034)
--- NOTE | 2023-01-20 15:00 | PM.IMHP ---
H&P: HPI History of Present Illness Date/Time: 01/20/23 15:00 Chief Complaint: Chest pain. Narrative: This is a pleasant 82-year-old female with dementia, hypertension, hyperlipidemia, diabetes, and GERD who presented to the emergency department from home for evaluation of chest pain. Given her short-term memory loss she is not able to give an accurate history and she defers a lot of my questions to her . As such almost all of the following history is obtained via a review of her EMR as well as information provided by her in Serbian with the bedside, with the patient's permission. According to Gordon the patient has been complaining of right-sided chest pain over the last 4 to 5 dating. She is unable to describe the pain as she is having and he has not noticed any pattern as to when she complains about this pain. It does not seem to radiate and there have been no noticeable acute aggravating or alleviating factors. Specifically she has not complained of worsening chest pain with food or activity. Initially he chalked it up to her GERD which can be pretty severe at times though because of ongoing complaints he brought her in for evaluation. At the time my evaluation she has no complaints and she is not really happy that she has to stay in the hospital. She denies current fever, chills, sweats, chest pain, shortness a breath, nausea, vomiting, abdominal pain, epigastric pain, bloating, belching, and diarrhea. Review of Systems Review of Systems: Twelve systems were reviewed. Limited information obtained from patient given her short-term memory loss. states she has not had any recent cold or flu symptoms. She has had frequent falls due to poor balance. She has chronic back pain for which she takes Tylenol. Except as documented all other systems were reviewed and are negative. [facility] Past Medical History Medical History (Updated 01/20/23 @ 17:48 by Rose Mary Camacho PA-C) Chronic GERD Dementia Frequent falls Hyperlipidemia Hypertension Hypothyroidism Transient ischemic attack Type 2 diabetes mellitus with diabetic neuropathy Surgical History Surgical History (Updated 01/20/23 @ 17:39 by Rose Mary Camacho PA-C) History of breast biopsy History of colon resection History of D&C History of toe surgery History of total abdominal hysterectomy and bilateral salpingo-oophorectomy Family History Family History Mother Cerebrovascular accident Family history of Alzheimer's disease Father Family history of heart disease in male family member before age 55 Sibling Family history of heart disease in male family member before age 55 Other Diabetes mellitus Family history of cardiovascular disease Hypertension Social History Social History (Updated 01/20/23 @ 21:29 by Rose Mary Camacho PA-C) Social History: Surrogate medical decision maker: Daughter Dolores Valdez. Code status: Full code. Smoking packs per day: 0 Smoking cigarettes per day: 0.0 Years smoked: 20 Smoking pack-years: 0.00 Smoking status: Former smoker Tobacco type: cigarettes Second hand tobacco smoke exposure: No Smoking end date: 12/01/76 Alcohol intake: current Drinks per week: 1 Substance use: never Substance use type: does not use Lack of Transportation: No Lack of Food: Never True Current Housing: I Have Housing Concerned About Future Housing: No Difficulty Paying Gas/Electric Bills: No Difficulty Paying for Meds: No Currently Unemployed: No Education: High School Diploma/GED Difficulty w/ Childcare or Family Care: No Living arrangements: with family Additional living arrangements comments: Patient lives with her . 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 Spiritual care concerns: No Meds Home Medications and Allergies Home Medica
[2023-01-20 16:15] LABS: Influenza A QL RT-PCR Negative (Negative); Influenza B QL RT-PCR Negative (Negative); SARS-CoV-2 RNA PCR Negative
--- NOTE | 2023-01-20 17:00 | PC.NURSE ---
called for a tray for visitor
--- NOTE | 2023-01-20 17:01 | PC.NURSE ---
dinner tray ordered for pt and spouse
[2023-01-20 17:30] LABS: Troponin I < 0.012 ng/mL (0.000-0.034)
--- NOTE | 2023-01-20 19:33 | PC.NURSE ---
Pure wick catheter explained to patient after previous RN reported patient was needing to urinate very frequently. Patient agreed to pure wick catheter for comfort and ease of urination. Pure wick catheter placed to low continuous suction for patient comfort and skin integrity.
--- NOTE | 2023-01-20 21:14 | ADMGEN ---
This patient, Kathy Valdez, was admitted to IMU Room 205-02 at 2040. Patient/family oriented to hospital policies and general routines including ID bracelet, bed and alarms, visiting hours, pain management, procedures, bathroom and other care routines, personal items, smoking policy, room service/diet, and visiting hours. Information on how to activate the Rapid Response Team has been discussed. Patient/Family are encouraged to report perceived risks to care and to ask questions if they do not understand what they are told or what they should do.
[2023-01-21] VITALS (14 sets, daily range): BP systolic 141–154; BP diastolic 69–99; PULSE 16–79; RESP 14–16; TEMP 36.4–37.1; O2SAT 93–99
[2023-01-21] MEDS: ACETAMINOPHEN 325 MG TABLET 650 MG PO ×3 (02:37→21:26)
[2023-01-21 04:47] LABS: Hematocrit 39.1 % (37.0-47.0); Hemoglobin 12.8 g/dL (12.0-15.0); Mean Corpuscular HGB Conc 32.7 g/dl (32-36); Mean Corpuscular Hemoglobin 30.6 pg (26-34); Mean Corpuscular Volume 93.5 fl (80-100); Mean Platelet Volume 11.2 fl (7.4-10.4); Platelet Count Result 168 k/mm3 (150-375); Red Blood Count 4.18 M/mm3 (4.2-5.4); Red Cell Distribution Width 13.3 % (11.5-14.5); White Blood Count 6.5 K/mm3 (4.5-10.0)
[2023-01-21 05:10] LABS: Alanine Aminotransferase 14 U/L (6-35); Albumin Level 3.7 g/dL (3.5-5.1); Alkaline Phosphatase 93 U/L (38-126); Anion Gap 5 mmol/L (8-16); Aspartate Amino Transferase 20 U/L (14-36); Bilirubin,Total 0.6 mg/dL (0.2-1.3); Blood Urea Nitrogen 15 mg/dL (7-17); Calcium 8.6 mg/dL (8.4-10.2); Carbon Dioxide 24 mmol/L (22-30); Chloride 106 mmol/L (98-107); Estimated CRCL calculation 43 ml/min; Estimated Glomerular Filt Rate > 60; Glucose 110 mg/dL (65-110); Magnesium 1.5 mg/dL (1.6-2.3); Potassium 3.5 mmol/L (3.4-5.0); Sodium 135 mmol/L (137-145)
[2023-01-21 05:15] LABS: Hemoglobin A1C 6.7 % (<5.7)
--- NOTE | 2023-01-21 07:30 | EST_ITS ---
Patient Info Name: Kathy Valdez Age: 82 years : 1940 Gender: Female Ht: 63 in Wt: 146 lbs BSA: 1.73 m2 HR: 64 bpm BP: 141 / 83 mmHg Heart Rhythm: Sinus Rhythm Exam Date: 01/21/2023 11:41 AM Exam Location: [facility] [place] Stress Patient Status: Inpatient Admit Date: 01/20/2023 Staff Ordering Physician: Ivan Walls MD Attending Provider: Rene Padron MD Exercise Technologist: Bernie Gamez, CT Exam Type: CA stress beatrice w NM Study Info Indications R07.89 - Other chest pain A regadenoson stress test was performed. Summary 1. Please correlate with nuclear medicine images, reported separately. 2. No abnormal ST-T wave changes with lexiscan. Protocol: Lexiscan Stress ECG Details Stage: REST Duration (min): 1 min : 50 sec HR (bpm): 62 SBP (mmHg): 141 DBP (mmHg): 83 Stage: REST Duration (min): 4 min : 57 sec HR (bpm): 61 SBP (mmHg): 141 DBP (mmHg): 83 Stage: STAGE 1 Duration (min): 1 min : 0 sec HR (bpm): 71 SBP (mmHg): 148 DBP (mmHg): 85 Stage: RECOVERY Duration (min): 1 min : 0 sec HR (bpm): 88 SBP (mmHg): 148 DBP (mmHg): 85 Stage: RECOVERY Duration (min): 2 min : 0 sec HR (bpm): 84 SBP (mmHg): 148 DBP (mmHg): 85 Stage: RECOVERY Duration (min): 3 min : 0 sec HR (bpm): 84 SBP (mmHg): 140 DBP (mmHg): 79 Stage: RECOVERY Duration (min): 3 min : 26 sec HR (bpm): 82 SBP (mmHg): 140 DBP (mmHg): 79 Rest HR: 61 bpm Peak HR: 88 bpm Rest Sys BP: 141 mmHg Peak Sys BP: 148 mmHg Max Pred HR: 137 bpm % Max Pred HR: 64 % Target HR: 116 bpm Max RPP: 13,024 bpm*mmHg Target HR Summary: Hemodynamic response to exercise was normal BP Response: Normal blood pressure response Termination Reason: Completed protocol Cardiac Symptoms: None Total Time: 1 min : 0 sec Rest Yuen BP: 83 mmHg Peak Yuen BP: 85 mmHg Total Dose: 0.4 mg Resting ECG Normal sinus rhythm. Right bundle branch block. Nonspecific T wave abnormality. LAFB. Stress ECG No abnormal ST/T wave changes with Lexiscan. Arrhythmias Occasional PVCs. Report Signatures
[2023-01-21 08:39] LABS: Glucose Point of Care 115 mg/dl (65-105)
[2023-01-21] MEDS: CHOLECALCIFEROL 1,000 UNITS TABLET 1000 UNITS PO (08:47)
[2023-01-21] MEDS: SIMVASTATIN 20 MG TABLET 40 MG PO (08:48)
[2023-01-21] MEDS: MEMANTINE 10 MG TABLET PO (08:49)
[2023-01-21] MEDS: SERTRALINE HCL 50 MG TABLET PO (08:49)
[2023-01-21] MEDS: PANTOPRAZOLE 40 MG TABLET PO (08:49)
[2023-01-21] MEDS: LOSARTAN POTASSIUM 25 MG TABLET PO (08:49)
[2023-01-21] MEDS: MAGNESIUM OXIDE 400 MG TABLET PO (08:49)
[2023-01-21] MEDS: VITAMIN B COMPLEX CAPSULE 1 CAP PO (08:49)
[2023-01-21] MEDS: CALCIUM CARBONATE (OSCAL) 500 MG TABLET PO (08:50)
[2023-01-21] MEDS: ASPIRIN 81 MG CHEWABLE TABLET PO (08:50)
[2023-01-21] MEDS: DOCUSATE SODIUM LIQ 100 MG/10 ML UDC 50 MG PO (12:47)
--- NOTE | 2023-01-21 16:09 | PCCCNOTE ---
On 01/21/23, the student, [Joyce Solano], provided care and completed [facility] hospital documentation on this patient. I have reviewed the student's documentation and agree with the findings.
[2023-01-21 16:51] LABS: Glucose Point of Care 200 mg/dl (65-105)
--- NOTE | 2023-01-21 17:15 | PM.CNCAR ---
Assessment and Plan Assessment and plan (1) Atypical chest pain: Code(s): R07.89 - Other chest pain Status: Acute Assessment and Plan: Probably musculoskeletal. TN r/o by serial troponin and EKG. Nuclear stress test shows mild reversible abnormality in inferior/inferoseptal segment which is low risk finding. Discuss at length with patient's about favoring conservative medical management over invasive cardiac cath given her dementia, sedentary lifestyle with atypical chest pain and low risk finding on stress test. He is in agreement. On aspirin. Start Isosorbide mononitrate 10 mg daily. Obtain echo. Anticipate she can go home tomorrow after echo. (2) Hyperlipidemia: Code(s): E78.5 - Hyperlipidemia, unspecified Status: Acute Assessment and Plan: On Simvastatin. (3) Hypertension: Code(s): I10 - Essential (primary) hypertension Status: Acute Assessment and Plan: Stable. (4) Type 2 diabetes mellitus with diabetic neuropathy: Code(s): E11.40 - Type 2 diabetes mellitus with diabetic neuropathy, unspecified Status: Acute Assessment and Plan: Managed by hospitalist. (5) Abnormal nuclear stress test: Code(s): R94.39 - Abnormal result of other cardiovascular function study Status: Acute History of Present Illness History of Present Illness Consult date/time: 01/21/23 17:15 Reason For Visit: Chest pain Narrative: 82 yr old woman presents to ER with chest pain. She has a history of significant dementia, DM, hypertension, dyslipidemia, GERD. Information obtained from patient's at bedside and from chart as patient is oriented only to name. She does report intermittent right sided chest pain that is worse with palpation and not currently present. She lives at home with her and able to stand up and use walker to get to restroom and is high risk for falls. Denies sob, orthopnea, PND, edema, dizziness, palpitations. Review of Systems Review of Systems: All systems reviewed & are unremarkable except as noted in HPI and below Cardiovascular: Cardiovascular: Reports as per HPI, Reports chest pain and Denies irregular heart rhythm Respiratory: Respiratory: Reports as per HPI and Denies dyspnea Gastrointestinal: Gastrointestinal: Reports as per HPI, Denies abdominal pain and Reports heartburn Genitourinary: Genitourinary: Reports as per HPI and Denies dysuria Musculoskeletal: Musculoskeletal: Reports as per HPI and Reports back pain Neurologic: Reports as per HPI, Denies dizziness and Denies syncope [facility] Past Medical History Medical History (Updated 01/21/23 @ 17:18 by Murtaza Vu DO) Chronic GERD Dementia Frequent falls Hyperlipidemia Hypertension Hypothyroidism Transient ischemic attack Type 2 diabetes mellitus with diabetic neuropathy Surgical History Surgical History (Updated 01/20/23 @ 17:39 by Rose Mary Camacho PA-C) History of breast biopsy History of colon resection History of D&C History of toe surgery History of total abdominal hysterectomy and bilateral salpingo-oophorectomy Family History Family History Mother Cerebrovascular accident Family history of Alzheimer's disease Father Family history of heart disease in male family member before age 55 Sibling Family history of heart disease in male family member before age 55 Other Diabetes mellitus Family history of cardiovascular disease Hypertension Social History Social History (Updated 01/20/23 @ 21:29 by Rose Mary Camacho PA-C) Social History: Surrogate medical decision maker: Daughter Dolores Valdez. Code status: Full code. Smoking packs per day: 0 Smoking cigarettes per day: 0.0 Years smoked: 20 Smoking pack-years: 0.00 Smoking status: Former smoker Tobacco type: cigarettes Second hand tobacco smoke exposure: No Smoking end date: 12/01/76 Alcoh
--- NOTE | 2023-01-21 17:15 | PM.IMPN ---
Progress Note: A&P Assessment and Plan (1) Atypical chest pain: Code(s): R07.89 - Other chest pain Status: Acute (2) Chronic GERD: Code(s): K21.9 - Gastro-esophageal reflux disease without esophagitis Status: Acute (3) Hyperglycemia due to type 2 diabetes mellitus: Code(s): E11.65 - Type 2 diabetes mellitus with hyperglycemia Status: Acute (4) Hyperlipidemia: Code(s): E78.5 - Hyperlipidemia, unspecified Status: Acute (5) Dementia: Code(s): F03.90 - Unspecified dementia, unspecified severity, without behavioral disturbance, psychotic disturbance, mood disturbance, and anxiety Status: Acute Plan The patient presented to the emergency department for evaluation of intermittent right anterior chest pain over last 4 to 5 days as per HPI. Labs, imaging, EKG, and all reports were personally reviewed. Due to her short-term memory loss she is not able to provide an accurate history. has not noticed a pattern as to when the chest pain occurs and he has thus far attributed her symptoms to GERD. It is not reproducible on exam thus musculoskeletal etiology is not likely. Her troponins have thus far been negative an EKG does not show any ST segment changes to suggest ischemia. Symptoms may very well be related to GERD. History and exam findings make ulcers less likely. She has apparently seen a surgeon in the past regarding possible hiatal hernia repair though they declined surgical intervention. Given her risk factor she is being admitted overnight for closer monitoring and to rule out acute coronary syndrome. Her blood pressures were reviewed and they have been stable. Her antihypertensives will be continued and blood pressures will be monitored closely. Glucose today was 241. Her metformin is currently on hold as she received IV contrast. Initiate sliding scale insulin, Accu-Cheks, and hypoglycemic protocol. Check hemoglobin A1c. Her home medications will be reviewed and resumed as appropriate. 01/21/23 -- 82-year-old female with dementia here for chest pain. Her history is unreliable but she does have multiple risk factors for coronary disease. Troponin negative x3. EKG showing no acute changes. D-dimer is positive. CTA was negative for PE. Lower extremity venous Dopplers were negative for DVT. Patient underwent Lexiscan stress test. There were no abnormal ST -T wave changes noted. The nuclear images showed a new small mild reversible perfusion defect consistent with ischemia centered at the junction of the mid inferior and mid inferoseptal segments. Her EF was greater than 70%. Cardiology was consulted. Plan is for conservative medical management. Continue aspirin and Zocor. Isosorbide mononitrate added. Echocardiogram ordered. Plan discharge tomorrow after echo is complete. Discussed with at bedside. Subjective Date/time seen: 01/21/23 17:15 Interval history: 82yo female with dementia, DM, HTN and HLD here for chest pain. Patient is alert but confused. She complains of right upper chest pain that is palpable and pleuritic. Her history is unreliable. Exam Narrative: AF 98.0 145/75 67 16 93% ra Gen - NARD Chest - CTA bilaterally, nml RR. Some tenderness to the right upper chest palpation. CV - RRR S1/S2 with 2/6 systolic murmur USB Abd - Soft, NT/ND, Positive BS Ext - No pedal edema Neuro - Alert but confused; oriented to month and year. Psych - Nml mood and affect Skin - Warm and dry Objective Data Vital Signs Vital Signs: Vital Signs - 24 hr 01/20/23 17:39 01/20/23 19:50 01/20/23 21:00 Temperature 97.7 F Pulse Rate 87 73 Respiratory Rate 17 18 Blood Pressure 139/91 H 143/64 H Pulse Oximetry 91 97 98 Oxygen Delivery Room Air 01/20/23 23:55 01/21/23 00:00 01/21/23 00:00 Temperature 97.4 F L Pulse Rate 68 79 Respiratory Rate 18 Blood Pressure 147/69 H Pulse Oximetry 93 98 Oxygen Delivery Room Air 01/02
[2023-01-21 20:27] LABS: Glucose Point of Care 208 mg/dl (65-105)
[2023-01-22] VITALS (8 sets, daily range): BP systolic 126–158; BP diastolic 46–80; PULSE 63–88; RESP 16–20; TEMP 36.2–37; O2SAT 70–99
--- NOTE | 2023-01-22 | ECHO_ITS ---
Patient Info Name: Kathy Valdez Age: 82 years : 1940 Gender: Female Ht: 63 in Wt: 146 lbs BSA: 1.73 m2 HR: 63 bpm BP: 151 / 68 mmHg Technical Quality: Fair Exam Date: 01/22/2023 10:20 AM Exam Location: [facility] Exam Room: [facility] [place] Patient Status: Outpatient Admit Date: 01/20/2023 Staff Ordering Physician: Murtaza Vu DO Network Firewall Engineer: Ruth Sadler RDCS Attending Provider: Rene Padron MD Referring Physician: Horace MATIAS; Exam Type: CA echo doppler color flow Study Info Indications - chest pain Complete two-dimensional, color flow and Doppler transthoracic echocardiogram is performed. Summary 1. Complete two-dimensional, color flow and Doppler transthoracic echocardiogram is performed. 2. Left ventricular chamber dimension is normal. 3. Left ventricular systolic function is normal, estimated at 65-70%. 4. The left ventricular diastolic function is grade I diastolic dysfunction. 5. E/e' 18 is elevated. 6. Left atrial chamber dimension is mildly enlarged. 7. There is moderate aortic valve sclerosis. 8. There is mild aortic valve stenosis with a peak velocity of 204 cm/s, mean gradient of 9 mmHg, and aortic valve area of 1.9 cm2. 9. The mitral valve has severely calcified posterior annulus. 10. There is trace mitral valve regurgitation. 11. There is trace tricuspid valve regurgitation. 12. No pulmonary hypertension, estimated pulmonary arterial systolic pressure is 26 mmHg. Left Ventricle E/e' 18 is elevated. Left ventricular chamber dimension is normal. Left ventricular systolic function is normal, estimated at 65-70%. The left ventricular diastolic function is grade I diastolic dysfunction. Right Ventricle Right ventricular chamber dimension is normal. Right ventricular systolic function is normal. Left Atria Left atrial chamber dimension is mildly enlarged. Right Atria Right atrial chamber dimension is normal. Aortic Valve The aortic valve is probable trileaflet. There is moderate aortic valve sclerosis. There is mild aortic valve stenosis with a peak velocity of 204 cm/s, mean gradient of 9 mmHg, and aortic valve area of 1.9 cm2. There is no aortic valve regurgitation. Pulmonic Valve There is no pulmonic regurgitation. Mitral Valve The mitral valve has severely calcified posterior annulus. There is no mitral valve stenosis. There is trace mitral valve regurgitation. Tricuspid Valve There is trace tricuspid valve regurgitation. No pulmonary hypertension, estimated pulmonary arterial systolic pressure is 26 mmHg. Pericardium/Pleural There is no pericardial effusion. Inferior Vena Cava Normal inferior vena cava with >50% collapse upon inspiration consistent with normal right atrial pressure, 5 mmHg. Aorta The aortic root size at the sinus of Valsalva is normal. Left Ventricular Outflow Tract Name Value Normal LVOT 2D LVOT Diameter 2.0 cm LVOT Doppler LVOT Peak Gradient 5 mmHg LVOT Mean Gradient 2 mmHg LVOT VTI 24 cm LVOT VTI/AV VTI Ratio
--- NOTE | 2023-01-22 03:52 | PC.NURSE ---
01/22/23 at approximately 0000 Patient has been having burst of PAC's yet in sinus rhythm. Heart rate is non-sustaining ranging from 50's to 120's. Will pass on in report to AM nurse.
--- NOTE | 2023-01-22 07:37 | PM.PNCARD ---
Progress Note: A&P Assessment and Plan (1) Atypical chest pain: Code(s): R07.89 - Other chest pain Status: Acute Assessment and Plan: Probably musculoskeletal. RI r/o by serial troponin and EKG. Nuclear stress test shows mild reversible abnormality in inferior/inferoseptal segment which is low risk finding. Discuss at length with patient's about favoring conservative medical management over invasive cardiac cath given her dementia, sedentary lifestyle with atypical chest pain and low risk finding on stress test. He is in agreement. On aspirin. Start Isosorbide mononitrate 15 mg daily. Obtain echo. If OK echo is OK may d/c home from cardiology standpoint and f/u with me in 1-2 weeks. (2) Hyperlipidemia: Code(s): E78.5 - Hyperlipidemia, unspecified Status: Acute Assessment and Plan: On Simvastatin. (3) Hypertension: Code(s): I10 - Essential (primary) hypertension Status: Acute Assessment and Plan: Mildly high but at home it runs 120-130 SBP per patient's . (4) Type 2 diabetes mellitus with diabetic neuropathy: Code(s): E11.40 - Type 2 diabetes mellitus with diabetic neuropathy, unspecified Status: Acute Assessment and Plan: Managed by hospitalist. (5) Abnormal nuclear stress test: Code(s): R94.39 - Abnormal result of other cardiovascular function study Status: Acute Subjective Date/time seen: 01/22/23 07:37 Interval history: She is oriented to name only. Has reproducible right side chest pain with palpation. No sob. Exam Const: General: cooperative, healthy appearing and comfortable Orientation/consciousness: oriented to person Resp: Auscultation: clear to auscultation bilaterally, no crackles, no rales, no rhonchi and no wheezes Cardio: Rate: regular rate Rhythm: regular rhythm Heart sounds: no murmurs Peripheral pulses: dorsalis pedis present GI: GI Palp: No abdominal tenderness and Yes Soft to palpation Neuro: General: oriented to person Extrem: Right lower extremity: no edema Left lower extremity: no edema Objective Data Vital Signs Vital Signs: Vital Signs - 24 hr 01/21/23 08:00 01/21/23 08:00 01/21/23 10:00 Temperature 97.8 F Pulse Rate 63 71 64 Respiratory Rate 14 Blood Pressure 142/74 H Pulse Oximetry 94 Oxygen Delivery 01/21/23 08:00 01/21/23 12:00 01/21/23 14:00 Temperature Pulse Rate 78 76 Respiratory Rate Blood Pressure Pulse Oximetry 94 Oxygen Delivery Room Air 01/21/23 13:00 01/21/23 16:00 01/21/23 16:00 Temperature 98 F Pulse Rate 69 67 Respiratory Rate 16 Blood Pressure 145/75 H Pulse Oximetry 98 93 Oxygen Delivery Room Air 01/21/23 16:00 01/21/23 18:00 01/21/23 19:55 Temperature 98.7 F Pulse Rate 70 16 L Respiratory Rate 16 Blood Pressure 141/69 H Pulse Oximetry 93 97 Oxygen Delivery Room Air 01/21/23 20:00 01/21/23 20:00 01/21/23 22:00 Temperature Pulse Rate 73 70 Respiratory Rate Blood Pressure Pulse Oximetry 96 Oxygen Delivery Room Air 01/22/23 00:00 01/22/23 00:00 01/22/23 02:00 Temperature Pulse Rate 88 74 Respiratory Rate Blood Pressure Pulse Oximetry 96 Oxygen Delivery Room Air 01/22/23 04:00 01/22/23 04:00 01/22/23 00:00 Temperature 98.3 F Pulse Rate 86 73 Respiratory Rate 16 Blood Pressure 158/80 H Pulse Oximetry 96 98 Oxygen Delivery Room Air 01/22/23 04:00 01/22/23 06:00 Temperature 97.2 F L Pulse Rate 63 69 Respiratory Rate 20 Blood Pressure 151/68 H Pulse Oximetry 70 L Oxygen Delivery Intake/Output Intake/Output: Intake & Output 01/19/23 01/20/23 01/21/23 01/22/23 23:59 23:59 23:59 23:59 Intake Total 460 200 Output Total 850 1100 Balance -390 -900 Meds/Results Medications: Active Medications Generic Name Dose Route Start Last Admin Trade Name Freq PRN Reason Stop Dose Admin Acetamino
[2023-01-22 07:45] LABS: Glucose Point of Care 137 mg/dl (65-105)
[2023-01-22] MEDS: SERTRALINE HCL 50 MG TABLET PO (10:02)
[2023-01-22] MEDS: VITAMIN B COMPLEX CAPSULE 1 CAP PO (10:02)
[2023-01-22] MEDS: PANTOPRAZOLE 40 MG TABLET PO (10:02)
[2023-01-22] MEDS: SIMVASTATIN 20 MG TABLET 40 MG PO (10:02)
[2023-01-22] MEDS: MEMANTINE 10 MG TABLET PO (10:02)
[2023-01-22] MEDS: LOSARTAN POTASSIUM 25 MG TABLET PO (10:03)
[2023-01-22] MEDS: ISOSORBIDE MONONITRATE 15 MG TAB.ER.24H PO (10:03)
[2023-01-22] MEDS: CHOLECALCIFEROL 1,000 UNITS TABLET 1000 UNITS PO (10:03)
[2023-01-22] MEDS: DOCUSATE SODIUM LIQ 100 MG/10 ML UDC 50 MG PO (10:03)
[2023-01-22] MEDS: MAGNESIUM OXIDE 400 MG TABLET PO (10:03)
[2023-01-22] MEDS: ASPIRIN 81 MG CHEWABLE TABLET PO (10:04)
[2023-01-22] MEDS: CALCIUM CARBONATE (OSCAL) 500 MG TABLET PO (10:04)
[2023-01-22 11:53] LABS: Glucose Point of Care 234 mg/dl (65-105)
[2023-01-22] MEDS: INSULIN ASPART (*BKC) 100 UNITS/ML SUB-Q (12:12)
--- NOTE | 2023-01-22 14:14 | PM.DS ---
DS: Admitting Diagnosis Discharge Date Probably musculoskeletal chest pain although cardiac is also a possiblity Admitting Diagnosis Chest pain DS: Discharge Diagnosis Discharge Diagnosis (1) Atypical chest pain: Code(s): R07.89 - Other chest pain Status: Acute Assessment and Plan: Probably musculoskeletal. [place] r/o by serial troponin and EKG. Nuclear stress test shows mild reversible abnormality in inferior/inferoseptal segment which is low risk finding. Discuss at length with patient's about favoring conservative medical management over invasive cardiac cath given her dementia, sedentary lifestyle with atypical chest pain and low risk finding on stress test. He is in agreement. On aspirin. Start Isosorbide mononitrate 15 mg daily. Ok to discharge after Echocardiogram (2) Chronic GERD: Code(s): K21.9 - Gastro-esophageal reflux disease without esophagitis Status: Acute (3) Hyperglycemia due to type 2 diabetes mellitus: Code(s): E11.65 - Type 2 diabetes mellitus with hyperglycemia Status: Acute (4) Hyperlipidemia: Code(s): E78.5 - Hyperlipidemia, unspecified Status: Acute (5) Dementia: Code(s): F03.90 - Unspecified dementia, unspecified severity, without behavioral disturbance, psychotic disturbance, mood disturbance, and anxiety Status: Acute DS: Summary Hospital Course Hospital Course: The patient presented to the emergency department for evaluation of intermittent right anterior chest pain over last 4 to 5 days as per HPI. Labs, imaging, EKG, and all reports were personally reviewed. Due to her short-term memory loss she is not able to provide an accurate history. has not noticed a pattern as to when the chest pain occurs and he has thus far attributed her symptoms to GERD. It is not reproducible on exam thus musculoskeletal etiology is not likely. Her troponins have thus far been negative an EKG does not show any ST segment changes to suggest ischemia. Symptoms may very well be related to GERD. History and exam findings make ulcers less likely. She has apparently seen a surgeon in the past regarding possible hiatal hernia repair though they declined surgical intervention. 01/21/23 -- 82-year-old female with dementia here for chest pain. Her history is unreliable but she does have multiple risk factors for coronary disease. Troponin negative x3. EKG showing no acute changes. D-dimer is positive. CTA was negative for PE. Lower extremity venous Dopplers were negative for DVT. Patient underwent Lexiscan stress test. There were no abnormal ST -T wave changes noted. The nuclear images showed a new small mild reversible perfusion defect consistent with ischemia centered at the junction of the mid inferior and mid inferoseptal segments. Her EF was greater than 70%. Cardiology was consulted. Plan is for conservative medical management. Continue aspirin and Zocor. Isosorbide mononitrate added. Echocardiogram ordered. Plan discharge tomorrow after echo is complete. Discussed with at bedside. 01/22/2023 Ok to discharge patient after echocardiogram. Pt can have Cardiology follow up. Advised low sugar diet as she appears prediabetic. Time Spent with Patient Time attestation: Total time spent providing and/or coordinating discharge services: Exam Narrative: Gen - frail elderly memory wax and wanes pleasant not confused today Chest - CTA bilaterally, nml RR. Some tenderness to the right upper chest palpation. CV - RRR S1/S2 with 2/6 systolic murmur Abd - Soft, NT/ND, Positive BS Ext - No pedal edema Neuro - Alert but confused; oriented to month and year. Psych - Nml mood and affect Skin - Warm and dry DS: Data Data Completed and Pending Labs on day of discharge: Labs from last 24 hours 01/22/23 01/22/23 01/21/23 11:49 07:42 20:19 POC Capillary Glucose 234 H 137 H 208 H 01/21/23 16:36 POC Capillary Glucose 200 H
== END 2023-01-22 15:50 | disposition home or self-care (01) ==
LOC: ANHED 12:18 → ANHIMU 19:44
PROVIDERS: Emergency Medicine; Physician Assistant; Admitting Provider Family Medicine; Emergency Provider Emergency Medicine; PCP Internal Medicine; Visit Provider Family Medicine
DX: R07.89 Other chest pain (principal); K21.9 Gastro-esophageal reflux disease without esophagitis; E11.65 Type 2 diabetes mellitus with hyperglycemia; E78.5 Hyperlipidemia, unspecified; F03.90 Unspecified dementia, unspecified severity, without behavioral disturbance, psychotic disturbance, mood disturbance, and anxiety; R94.39 Abnormal result of other cardiovascular function study; G89.29 Other chronic pain; M54.9 Dorsalgia, unspecified; K44.9 Diaphragmatic hernia without obstruction or gangrene; Z20.822 Contact with and (suspected) exposure to COVID-19; I11.9 Hypertensive heart disease without heart failure; E03.9 Hypothyroidism, unspecified; E11.42 Type 2 diabetes mellitus with diabetic polyneuropathy; I45.2 Bifascicular block; J98.11 Atelectasis; R94.31 Abnormal electrocardiogram [ECG] [EKG]; R29.6 Repeated falls; I35.0 Nonrheumatic aortic (valve) stenosis; I34.81 Nonrheumatic mitral (valve) annulus calcification; F10.90 Alcohol use, unspecified, uncomplicated; Z87.891 Personal history of nicotine dependence; Z86.73 Personal history of transient ischemic attack (TIA), and cerebral infarction without residual deficits; Z79.84 Long term (current) use of oral hypoglycemic drugs; Z79.899 Other long term (current) drug therapy; Z82.3 Family history of stroke; Z83.3 Family history of diabetes mellitus; Z82.49 Family history of ischemic heart disease and other diseases of the circulatory system; Z81.8 Family history of other mental and behavioral disorders
CPT/HCPCS: 36415; 71046; 71275; 78452; 80053; 82948; 83036; 83690; 83735; 83880; 84443; 84484; 85025; 85027; 85380; 85610; 85730; 87636; 93005; 93017; 93306; 93970; 99285; A9270; A9502; G0378; J1815; J2785; Q9967

== ENCOUNTER 2023-01-28 11:13 | Outpatient (CLI) | payer MEDICARE, SELFPAY ==
--- NOTE | ~2023-01-28 | XR_ITS ---
Right Shoulder Technique: AP and scapular Y views were obtained. Clinical History: Pain Findings: No fracture or dislocation is seen. Osseous alignment is anatomic. The glenohumeral and acr omioclavicular joint spaces are preserved. Soft tissues are unremarkable. Impression: Unremarkable right shoulder radiographs. Reviewed, dictated and finalized at [facility]. T RELATION OFFICER Impression: Unremarkable right shoulder radiographs.
== END 2023-01-28 11:14 | disposition home or self-care (01) ==
PROVIDERS: PCP Internal Medicine; Visit Provider Internal Medicine
DX: M25.511 Pain in right shoulder (principal)
CPT/HCPCS: 73030

== ENCOUNTER 2023-03-17 14:59 | Outpatient (CLI) | payer MEDICARE, SELFPAY ==
[2023-03-17 16:19] LABS: Alanine Aminotransferase 14 U/L (6-35); Alkaline Phosphatase 103 U/L (38-126); Anion Gap 6 mmol/L (8-16); Aspartate Amino Transferase 25 U/L (14-36); Bilirubin,Total 0.5 mg/dL (0.2-1.3); Blood Urea Nitrogen 19 mg/dL (7-17); Calcium 8.9 mg/dL (8.4-10.2); Carbon Dioxide 26 mmol/L (22-30); Chloride 105 mmol/L (98-107); Cholesterol 146 mg/dL (0-200); Estimated Glomerular Filt Rate 60; Glucose 148 mg/dL (65-110); HDL Direct 32 mg/dL; Potassium 3.9 mmol/L (3.4-5.0); Sodium 137 mmol/L (137-145); Triglycerides 224 mg/dL (<150)
[2023-03-17 16:30] LABS: LDL Cholesterol Direct 72 mg/dL
[2023-03-17 17:06] LABS: Vitamin D 25 Hydroxy 34.5 ng/mL
[2023-03-17 17:41] LABS: Hemoglobin A1C 6.6 % (<5.7)
== END 2023-03-17 15:00 | disposition home or self-care (01) ==
PROVIDERS: PCP Internal Medicine; Visit Provider Family Medicine
DX: E11.40 Type 2 diabetes mellitus with diabetic neuropathy, unspecified (principal); I10 Essential (primary) hypertension; E78.5 Hyperlipidemia, unspecified; E03.9 Hypothyroidism, unspecified; E53.8 Deficiency of other specified B group vitamins; E55.9 Vitamin D deficiency, unspecified
CPT/HCPCS: 36415; 80053; 80061; 82306; 82607; 83036; 84443

== ENCOUNTER 2023-09-22 12:10 | Outpatient (CLI) | payer MEDICARE, SELFPAY ==
[2023-09-22 13:23] LABS: Thyroid Stimulating Hormone 0.902 uIU/mL (0.465-4.680)
== END 2023-09-22 12:11 | disposition home or self-care (01) ==
PROVIDERS: PCP Nurse Practitioner Family; Visit Provider Nurse Practitioner Family
DX: Z13.29 Encounter for screening for other suspected endocrine disorder (principal); R63.0 Anorexia
CPT/HCPCS: 36415; 84443

== ENCOUNTER 2023-12-19 13:32 | Emergency (ER) | payer MEDICARE, SELFPAY ==
[2023-12-19 14:00] VITALS: PULSE 91; RESP 16; TEMP 36.1; O2SAT 96
--- NOTE | 2023-12-19 14:02 | ED.FEMALEGU ---
HPI - Female Genitourinary General Chief complaint: Urogenital-Female Stated complaint: UTI SYMPTOMS Time Seen by Provider: 12/19/23 14:02 Source: patient, RN notes reviewed and old records reviewed Mode of arrival: ambulatory Limitations: no limitations History of Present Illness HPI Narrative: 83-year-old female with a history of dementia presents to the [facility] with her daughter with concerns for UTI Daughter reports for the last couple of weeks she ?has not been feeling well. ? For the last 2 nights has been getting more frequently to use the restroom. Reports for the last 2-3 days has had a fever of 99.9. Patient denies any abdominal pain. Daughter states is eating and drinking normally without abdominal pain. Related Data Home Medications Medication Instructions Recorded Confirmed omega 4-tix-ykz-fish oil 1,000 mg 1 cap PO DAILY 08/07/23 12/19/23 (120 mg-180 mg) capsule (Fish Oil) cephalexin 250 mg capsule 250 mg PO QHS 09/29/23 12/19/23 vibegron 75 mg tablet (Gemtesa) 75 mg PO QHS 09/29/23 12/19/23 Allergies Allergy/AdvReac Type Severity Reaction Status Date / Time lidocaine Allergy Unknown Unknown Verified 12/19/23 13:54 metronidazole Allergy Unknown Unknown Verified 12/19/23 13:54 mirabegron Allergy Unknown Unknown Verified 12/19/23 13:54 Penicillins Allergy Unknown Unknown Verified 12/19/23 13:54 Sulfa (Sulfonamide Allergy Unknown Itching Verified 12/19/23 13:54 Antibiotics) Review of Systems Review of Systems: All systems reviewed & are unremarkable except as noted in HPI and below Constitutional: Constitutional: Reports no additional constitutional complaints Eyes: Eyes: Reports no additional eye complaints ENT: Reports system reviewed and no additional complaints, except as documented Cardiovascular: Cardiovascular: Reports no additional cardiovascular complaints, Denies chest pain and Denies dyspnea Respiratory: Respiratory: Reports no additional respiratory complaints, Denies chest congestion, Denies cough and Denies dyspnea Gastrointestinal: Gastrointestinal: Reports no additional gastrointestinal complaints, Denies abdominal pain, Denies nausea and Denies vomiting Genitourinary: Genitourinary: Reports as per HPI Musculoskeletal: Musculoskeletal: Reports no additional musculoskeletal complaints Integumentary/Breasts: Skin/Breast: Reports system reviewed and no additional complaints, except as docu Neurologic: Reports system reviewed and no additional complaints, except as documented Psychiatric: Psychiatric: Reports no additional psychiatric complaints Allergic/Immunologic: Allergic/Immunologic: Reports no additional allergic/immunologic complaints [facility] Past Medical History Medical History Chronic GERD Chronic low back pain Cognitive impairment Dementia Essential (primary) hypertension Frequent falls Gait disorder Hyperlipidemia Hypertension Hypothyroidism Transient ischemic attack Type 2 diabetes mellitus with diabetic neuropathy Urinary incontinence Vitamin D deficiency, unspecified Surgical History Surgical History History of breast biopsy History of colon resection History of D&C History of toe surgery History of total abdominal hysterectomy and bilateral salpingo-oophorectomy Family History Family History Mother Cerebrovascular accident Family history of Alzheimer's disease Father Family history of heart disease in male family member before age 55 Sibling Family history of heart disease in male family member before age 55 Other Diabetes mellitus Family history of cardiovascular disease Hypertension Social History Social History Social History: Surrogate medical decision maker: Daughter Dolores Valdez. Code status: Full code. Smoking
[2023-12-19 14:20] VITALS: BP 140/82
[2023-12-19 14:44] LABS: Glucose Point of Care 113 mg/dl (65-105)
== END 2023-12-19 14:54 | disposition home or self-care (01) ==
PROVIDERS: Emergency Provider Nurse Practitioner; PCP Family Medicine
DX: N39.0 Urinary tract infection, site not specified (principal); B96.89 Other specified bacterial agents as the cause of diseases classified elsewhere; F03.90 Unspecified dementia, unspecified severity, without behavioral disturbance, psychotic disturbance, mood disturbance, and anxiety; K21.9 Gastro-esophageal reflux disease without esophagitis; I10 Essential (primary) hypertension; E78.5 Hyperlipidemia, unspecified; E03.9 Hypothyroidism, unspecified; Z86.73 Personal history of transient ischemic attack (TIA), and cerebral infarction without residual deficits; E11.42 Type 2 diabetes mellitus with diabetic polyneuropathy; E55.9 Vitamin D deficiency, unspecified; Z87.891 Personal history of nicotine dependence
CPT/HCPCS: 81003; 82948; 87077; 87086; 87186; 99213; G0463

== ENCOUNTER 2024-01-06 20:58 | Inpatient (IN) | payer MEDICARE, SELFPAY ==
--- NOTE | ~2024-01-06 | XR_ITS ---
MODIFIED ESOPHAGRAM HISTORY: Witnessed choking episode TECHNIQUE: Modified barium esophagram was performed on 01/07/2024. I administered fluoroscopy and perfo rmed the exam with speech pathologist. Patient was seated for lateral fluoroscopic imaging for inges tion of thin liquids, pudding, solids and quantified amounts, followed by thin liquids in uncontrolle d amounts. This was recorded on tape. A single fluoroscopic spot image was also recorded. The DAP for this procedure was 2.092 Gycm2. The amount of fluoroscopy time used during this procedure was 3.4 mi nutes. FINDINGS: Oral stage: Adequate function. Pharyngeal stage: Adequate function. Cervical/esophageal stage: Adequate function. IMPRESSION: Patient tolerated regular consistency oral feedings in the upright position. Please aneesh elate with speech pathologist findings and specific feeding recommendations. Reviewed, dictated and finalized at location A. AL PHOTOGRAPH INTERPRETER IMPRESSION: Patient tolerated regular consistency oral feedings in the upright position. Please correlate with speech pathologist findings and specific feedi ng recommendations.
--- NOTE | ~2024-01-06 | XR_ITS ---
EXAMINATION: XR chest 1V portable Exam Date/Time: 01/06/2024 21:45 DEVELOPMENT PLANNER HISTORY: generalized weakness Comparison: X-ray chest and CTPA 01/20/2023. RESULT: Lines, tubes, and devices: None. Lungs and pleura: Senescent changes, bibasilar scar/atelectasis, otherwise clear. Cardiomediastinal silhouette: Stable. Persistent right hemidiaphragm elevation. Hiatal hernia. Other: No acute osseous or upper abdominal finding. IMPRESSION: No acute cardiopulmonary process. Reviewed, dictated and finalized at location K. LOPMENT PLANNER
--- NOTE | ~2024-01-06 | CT_ITS ---
EXAMINATION: CT abdomen pelvis w con DATE: 01/06/2024 23:42 INDICATION: abdominal pain, diarrhea TECHNIQUE: Computed tomography (CT) of the abdomen and pelvis was performed cardiomegaly. Coronary, m itral, aortic valve calcifications. Dependent scar/atelectasis. intravenous contrast. Automated expos ure control and iterative reconstruction technique were employed. The dose-length product was 440.54 mGy-cm. COMPARISON: None. FINDINGS: Lower thorax: Unremarkable Liver: Multiple liver cysts. Biliary/Gallbladder: Dilated gallbladder. Intrahepatic bile duct dilation. Normal common bile duct. Pancreas: Moderate atrophy. Spleen: Normal. Adrenals:Stable right adrenal adenoma. Kidneys: Exophytic right upper pole cyst. Bilateral hypodensities too small to characterize but most likely represent cysts. Mild dilation of the proximal right ureter, likely related to adjacent inflam matory change GI tract: Moderate hiatal hernia. Moderate distal esophageal and gastric wall edema. Multiple small b owel and large bowel diverticuli. Segmental small bowel wall thickening in the right mid abdomen, wit h significant surrounding inflammatory change, but isn't enlarged lymph nodes, and small gas bubbles in the mesentery. Multiple inflamed diverticuli also noted in this area. No small or large bowel dila tion. Mild chronic dilation of the appendix, with mucosal hyperemia, presumably related to adjacent i nflammatory changes. Mesentery/Peritoneum: No ascites, mass, or free air. Retroperitoneum: No mass. Pelvis: Normal urinary bladder. Absent uterus. Soft Tissues: Soft tissues and body wall unremarkable. Bones: Mild height loss at L1, new since the prior study. IMPRESSION: Moderate esophagitis/gastritis. Gallbladder hydrops, presumably related to fasting or reactive inflammation. New intrahepatic bile duct dilation, no common bile duct dilation, no obstructing stone or mass detec boby. Correlate with biliary labs. Complicated small bowel diverticulitis, with contained perforation. Multiple inflamed and/or enhancin g adjacent diverticuli make a small abscess difficult to exclude. Mucosal hyperemia of the appendix, presumably reactive, however early appendicitis could appear simil astrid. Reviewed, dictated and finalized at location K. COORDINATOR IMPRESSION: Moderate esophagitis/gastritis. Gallbladder hydrops, presumably related to fasting or reactive inflammation. New intrahepatic bile duct dilation, no common bile duct dilation, no obstructi ng stone or mass detected. Correlate with biliary labs. Complicated small bowel diverticulitis, with contained perforation. Multiple in flamed and/or enhancing adjacent diverticuli make a small abscess difficult to exclude. Mucosal hyperemia of the appendix, presumably reactive, however early appendici tis could appear similarly.
[2024-01-06 21:01] VITALS: BP 110/63; PULSE 96; RESP 20; TEMP 36.7; O2SAT 93
--- NOTE | 2024-01-06 21:10 | ECG_ITS ---
Measurements Intervals [place] Rate: 91 P: 40 MT: 186 QRS: -64 QRSD: 131 T: 35 QT: 393 QTc: 485 Interpretive Statements SINUS RHYTHM RIGHT BUNDLE BRANCH BLOCK [120+ ms QRS DURATION, UPRIGHT V1, 40+ ms S IN I/aVL/V4/V5/V6] LEFT ANTERIOR FASCICULAR BLOCK [QRS AXIS <= -45, QR IN I, RS IN II] COMPARED TO ECG 01/20/2023 09:57:53 NO SIGNIFICANT CHANGES Electronically Signed On 01-07-2024 15:08:07 CORPSMAN by Brittny Soriano M.D.
[2024-01-06 21:25] LABS: Basophils Percent Auto 0.3 % (0.2-1.2); Eosinophils Absolute Auto 0.1 K/mm3 (0-0.3); Eosinophils Percent Auto 0.7 % (0-4.4); Hematocrit 38.2 % (37.0-47.0); Hemoglobin 12.2 g/dL (12.0-15.0); Immature Granulocyte Absolute 0.07 K/mm3 (0.00-0.031); Immature Granulocyte Percent A 0.5 % (0-0.5); Lymphocytes Absolute Auto 0.83 K/mm3 (0.9-3.2); Mean Corpuscular HGB Conc 31.9 g/dl (32-36); Mean Corpuscular Hemoglobin 31.9 pg (26-34); Mean Corpuscular Volume 99.7 fl (80-100); Mean Platelet Volume 10.3 fl (7.4-10.4); Monocytes Absolute Auto 0.5 K/mm3 (0.1-0.6); Monocytes Percent Auto 3.8 % (2.6-8.5); Neutrophils Absolute Auto 12.3 K/mm3 (1.3-6.7); Neutrophils Percent Auto 88.7 % (45.5-73.1); Platelet Count Result 292 k/mm3 (150-375); Red Blood Count 3.83 M/mm3 (4.2-5.4); Red Cell Distribution Width 13.5 % (11.5-14.5); White Blood Count 13.8 K/mm3 (4.5-10.0)
[2024-01-06 21:28] LABS: Appearance Urine Clear (Clear); Bacteria Urine Rare /hpf; Bilirubin Urine 1+ (Negative); Blood Urine Negative (Negative); Color Urine Dark Yellow (Yellow); Glucose Urine UA Negative (Negative); Ketones Urine Trace mg/dL (Negative); Leukocyte Esterase Ur Negative LEU/UL (Negative); Nitrate Urine Negative (Negative); Non Pathogenic Casts 0-2; Protein Urine 1+ mg/dL (Negative); RBC Urine 0-2 /hpf (0-2); Squamous Epithelial Cell Urine Occasional /hpf (Few); WBC Urine 0-5 /hpf; pH Urine 5.5 (5.0-9.0)
[2024-01-06 21:29] LABS: Add Urine Microscopic? YES
[2024-01-06 21:35] LABS: Alanine Aminotransferase 18 U/L (6-35); Albumin Level 3.8 g/dL (3.5-5.1); Alkaline Phosphatase 80 U/L (38-126); Anion Gap 9 mmol/L (8-16); Aspartate Amino Transferase 24 U/L (14-36); Bilirubin,Total 0.7 mg/dL (0.2-1.3); Blood Urea Nitrogen 31 mg/dL (7-17); Calcium 9.4 mg/dL (8.4-10.2); Carbon Dioxide 20 mmol/L (22-30); Chloride 105 mmol/L (98-107); Estimated Glomerular Filt Rate 53; Glucose 190 mg/dL (65-110); Potassium 4.2 mmol/L (3.4-5.0); Sodium 134 mmol/L (137-145)
[2024-01-06 22:36] VITALS: PULSE 81
[2024-01-06] MEDS: SODIUM CHLORIDE 0.9% IV 1,000 ML 999 ML IV CONT (23:07)
[2024-01-06 23:20] LABS: Magnesium 1.8 mg/dL (1.6-2.3)
[2024-01-06 23:30] VITALS: BP 109/65; PULSE 87; RESP 19; O2SAT 95
[2024-01-06 23:33] LABS: Troponin I < 0.012 ng/mL (0.000-0.034)
[2024-01-07 00:29] LABS: Lactic Acid Reflex 1.2 mmol/L (0.7-2.0)
--- NOTE | 2024-01-07 00:33 | ED.GENADULT ---
HPI - General Adult General Chief complaint: Weakness Stated complaint: diarrhea Time Seen by Provider: 01/06/24 22:43 History of Present Illness HPI narrative: patient is a 83-year-old female who presents emergency department with chief complaint of generalized weakness. Patient has had some recent urinary tract infections in the family has noticed that she has been having decreased appetite and discomfort in her abdomen the patient is also started having diarrhea today the family notices that she is appeared to be very dehydrated. The patient is normally a resident of [place] with her . Patient does have prior history of diverticulitis in past Related Data Home Medications Medication Instructions Recorded Confirmed omega 5-mgk-gsu-fish oil 1,000 mg 1 cap PO DAILY 08/07/23 12/19/23 (120 mg-180 mg) capsule (Fish Oil) cephalexin 250 mg capsule 250 mg PO QHS 09/29/23 12/19/23 vibegron 75 mg tablet (Gemtesa) 75 mg PO QHS 09/29/23 12/19/23 Allergies Allergy/AdvReac Type Severity Reaction Status Date / Time lidocaine Allergy Unknown Unknown Verified 12/19/23 13:54 metronidazole Allergy Unknown Unknown Verified 12/19/23 13:54 mirabegron Allergy Unknown Unknown Verified 12/19/23 13:54 Penicillins Allergy Unknown Unknown Verified 12/19/23 13:54 Sulfa (Sulfonamide Allergy Unknown Itching Verified 12/19/23 13:54 Antibiotics) Review of Systems Review of Systems: A 10 system review of systems was completed on the patient and is negative except for what is stated in the HPI. Nursing and ancillary documentation was reviewed. [facility] Past Medical History Medical History Chronic GERD Chronic low back pain Cognitive impairment Dementia Essential (primary) hypertension Frequent falls Gait disorder Hyperlipidemia Hypertension Hypothyroidism Transient ischemic attack Type 2 diabetes mellitus with diabetic neuropathy Urinary incontinence Vitamin D deficiency, unspecified Surgical History Surgical History History of breast biopsy History of colon resection History of D&C History of toe surgery History of total abdominal hysterectomy and bilateral salpingo-oophorectomy Family History Family History Mother Cerebrovascular accident Family history of Alzheimer's disease Father Family history of heart disease in male family member before age 55 Sibling Family history of heart disease in male family member before age 55 Other Diabetes mellitus Family history of cardiovascular disease Hypertension Social History Social History Social History: Surrogate medical decision maker: Daughter Dolores Valdez. Code status: Full code. Smoking packs per day: 0 Smoking cigarettes per day: 0.0 Years smoked: 20 Smoking pack-years: 0.00 Smoking status: Former smoker Tobacco type: cigarettes Second hand tobacco smoke exposure: No Smoking end date: 12/01/76 Alcohol intake: never Substance use: never Substance use type: does not use Lack of Transportation: No Lack of Food: Never True Current Housing: I Have Housing Concerned About Future Housing: No Difficulty Paying Gas/Electric Bills: No Difficulty Paying for Meds: No Currently Unemployed: No Education: High School Diploma/GED Difficulty w/ Childcare or Family Care: No Living arrangements: with family Additional living arrangements comments: Patient lives with her . 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 Spiritual care concerns: No Exam Narrative: GENERAL: frail-appearing, thin, and in no acute distress. HEAD: Normocephalic, atraumatic. EYES: PERRLA and EOMI. ENT: Aleksandar
[2024-01-07] MEDS: MAGNESIUM SULF 2 GM/WATER 50ML 2 GM/50 ML BAG IVPB (00:46)
[2024-01-07] MEDS: MEROPENEM 1 GM/NS 100 ML 1 GM/100 ML BAG IVPB ×3 (00:47→22:55)
[2024-01-07 01:02] LABS: Influenza A QL RT-PCR Negative (Negative); Influenza B QL RT-PCR Negative (Negative); RSV RNA, RT-PCR Negative (Negative); SARS-CoV-2 RNA PCR Negative (Negative)
[2024-01-07 01:45] VITALS: BP 109/51; PULSE 92; RESP 18; TEMP 37.1; O2SAT 95
[2024-01-07 02:42] VITALS: BMI 23.0
[2024-01-07 02:43] VITALS: BMI 23.0
--- NOTE | 2024-01-07 03:13 | ADMGEN ---
This patient, Kathy Valdez, was admitted to Medical Room 344-01. Patient/family oriented to hospital policies and general routines including ID bracelet, bed and alarms, visiting hours, pain management, procedures, bathroom and other care routines, personal items, smoking policy, room service/diet, and visiting hours. Information on how to activate the Rapid Response Team has been discussed. Patient/Family are encouraged to report perceived risks to care and to ask questions if they do not understand what they are told or what they should do.
[2024-01-07 04:15] VITALS: BP 118/50; PULSE 67; RESP 16; TEMP 36.6; O2SAT 93
[2024-01-07] MEDS: SODIUM CHLORIDE 0.9% IV 1,000 ML 125 ML IV CONT (04:30)
--- NOTE | 2024-01-07 09:28 | PC.NURSE ---
RN gave update via telephone to Dolores patient's daughter
--- NOTE | 2024-01-07 10:01 | PM.CNGS ---
Assessment and Plan Assessment and plan (1) Diverticulitis of small intestine with perforation: Code(s): K57.00 - Diverticulitis of small intestine with perforation and abscess without bleeding Status: Acute Assessment and Plan: CT suggests small-bowel diverticulitis with a localized perforation and/or possible small abscess. Abdominal exam benign. We would recommend continuing broad-spectrum IV antibiotics. Will allow a clear liquid diet. Decrease IV fluids. Continue to monitor with serial abdominal exams. (2) Dementia: Qualifiers: Dementia type: unspecified type Dementia severity: severe Dementia behavioral or psychological symptom: without behavioral, psychotic, or mood disturbance or anxiety Qualified Code(s): F03.C0 - Unspecified dementia, severe, without behavioral disturbance, psychotic disturbance, mood disturbance, and anxiety Code(s): F03.90 - Unspecified dementia, unspecified severity, without behavioral disturbance, psychotic disturbance, mood disturbance, and anxiety Status: Acute (3) Aortic stenosis: Qualifiers: Cardiac valve disease etiology: etiology unspecified Qualified Code(s): I35.0 - Nonrheumatic aortic (valve) stenosis Code(s): I35.0 - Nonrheumatic aortic (valve) stenosis Status: Acute Assessment and Plan: Mild aortic valve stenosis on echocardiogram about a year ago (4) Type 2 diabetes mellitus with diabetic neuropathy: Qualifiers: Diabetes mellitus terminal make up operator insulin use: without terminal make up operator use Qualified Code(s): E11.40 - Type 2 diabetes mellitus with diabetic neuropathy, unspecified Code(s): E11.40 - Type 2 diabetes mellitus with diabetic neuropathy, unspecified Status: Acute Assessment and Plan: Management per primary service (5) Hypertension: Code(s): I10 - Essential (primary) hypertension Status: Acute Plan I have discussed the patient's case and plan of care with Dr. Perea. History of Present Illness Consult details Consult date: 01/07/24 Reason for consult: other (Small bowel diverticulitis with perforation) Requesting physician: Ivan Flor MD Narrative: This is an 83-year-old woman with multiple medical problems, who presented to the ER from [place] for evaluation of generalized weakness. The patient has dementia and is a poor historian, therefore her history is obtained by review of the electronic medical record. Family had noticed a decreased appetite and the patient mentioning discomfort in her abdomen recently. She has also been treated for UTIs recently. They were concerned about dehydration and she began having diarrhea yesterday, therefore she was brought in for evaluation. [place] [id number] [address] lactic acid 1.2. CT scan of the abdomen and pelvis showed complicated small-bowel diverticulitis with contained perforation, multiple inflamed and or enhancing adjacent diverticulitis make a small abscess difficult to exclude. Also noted was mucosal hyperemia of the appendix, presumably reactive however early appendicitis could appear similarly. New intrahepatic bile duct dilation, no common bile duct dilation or obstructing stone or mass detected. Radiologist also suggest gallbladder hydrops presumably related to fasting or reactive inflammation. LFTs were all normal. She was admitted to the hospitalist service and started on IV meropenem. She was made NPO and started on IV fluids. She is now seen in surgical consultation for diverticulitis with perforation. She reports some suprapubic pain. She believes this has been ongoing for about a week. She cannot recall much more for her history. Review of Systems Review of Systems: ROS unobtainable: Yes unobtainable due to mental status PMFSH Past Medical History Medical History Chronic GERD Chronic low back pain Cognitive impair
[2024-01-07] MEDS: SODIUM CHLORIDE 0.9% IV 1,000 ML 70 ML IV CONT (12:56)
[2024-01-07 12:57] LABS: Basophils Percent Auto 0.4 % (0.2-1.2); Eosinophils Absolute Auto 0.1 K/mm3 (0-0.3); Eosinophils Percent Auto 1.4 % (0-4.4); Hematocrit 35.1 % (37.0-47.0); Hemoglobin 11.3 g/dL (12.0-15.0); Immature Granulocyte Absolute 0.03 K/mm3 (0.00-0.031); Immature Granulocyte Percent A 0.4 % (0-0.5); Lymphocytes Absolute Auto 0.78 K/mm3 (0.9-3.2); Lymphocytes Percent Auto 9.3 % (18.3-44.2); Mean Corpuscular HGB Conc 32.2 g/dl (32-36); Mean Corpuscular Hemoglobin 31.5 pg (26-34); Mean Corpuscular Volume 97.8 fl (80-100); Monocytes Absolute Auto 0.4 K/mm3 (0.1-0.6); Monocytes Percent Auto 4.3 % (2.6-8.5); Neutrophils Absolute Auto 7.1 K/mm3 (1.3-6.7); Neutrophils Percent Auto 84.2 % (45.5-73.1); Platelet Count Result 230 k/mm3 (150-375); Red Blood Count 3.59 M/mm3 (4.2-5.4); Red Cell Distribution Width 13.3 % (11.5-14.5); White Blood Count 8.4 K/mm3 (4.5-10.0)
[2024-01-07 13:18] LABS: Alanine Aminotransferase 14 U/L (6-35); Albumin Level 3.1 g/dL (3.5-5.1); Alkaline Phosphatase 74 U/L (38-126); Anion Gap 4 mmol/L (8-16); Aspartate Amino Transferase 24 U/L (14-36); Bilirubin,Total 0.7 mg/dL (0.2-1.3); Blood Urea Nitrogen 18 mg/dL (7-17); Calcium 8.8 mg/dL (8.4-10.2); Carbon Dioxide 25 mmol/L (22-30); Chloride 108 mmol/L (98-107); Estimated CRCL calculation 35 ml/min; Estimated Glomerular Filt Rate 60; Glucose 164 mg/dL (65-110); Magnesium 2.1 mg/dL (1.6-2.3); Potassium 3.5 mmol/L (3.4-5.0); Sodium 137 mmol/L (137-145)
[2024-01-07 15:04] VITALS: BP 106/58; PULSE 78; RESP 12; TEMP 36.3; O2SAT 92
--- NOTE | 2024-01-07 16:57 | PM.IMPN ---
Subjective Date/time seen: 01/07/24 16:57 Objective Data Vital Signs Vital Signs: Vital Signs - 24 hr 01/06/24 21:01 01/06/24 22:36 01/06/24 23:30 Temperature 98.1 F Pulse Rate 96 81 87 Respiratory Rate 20 19 Blood Pressure 110/63 109/65 Pulse Oximetry 93 95 Oxygen Delivery Room Air 01/07/24 01:45 01/07/24 04:15 01/07/24 08:00 Temperature 98.8 F 97.8 F Pulse Rate 92 67 Respiratory Rate 18 16 Blood Pressure 109/51 L 118/50 L Pulse Oximetry 95 93 Oxygen Delivery Room Air 01/07/24 15:04 Temperature 97.3 F L Pulse Rate 78 Respiratory Rate 12 Blood Pressure 106/58 L Pulse Oximetry 92 Oxygen Delivery Intake/Output Intake/Output: Intake & Output 01/04/24 01/05/24 01/06/24 01/07/24 23:59 23:59 23:59 23:59 Intake Total 2200 Balance 2200 Meds/Results Medications: Active Medications Generic Name Dose Route Start Last Admin Trade Name Freq PRN Reason Stop Dose Admin Acetaminophen 650 mg 01/07/24 00:30 Acetaminophen 325 Mg Tablet PO Q4H PRN Mild Pain (1-3) or Fever Meropenem 1 gm in 100 mls @ 200 mls/hr 01/07/24 11:00 01/07/24 13:27 IVPB Infused Q12H TACO Infusion Sodium Chloride 1,000 mls @ 70 mls/hr 01/07/24 00:30 01/07/24 12:56 Normal Saline Iv IV CONT 70 mls/hr .[id number] TACO Administration Ondansetron HCl 4 mg 01/07/24 00:30 Ondansetron Inj 4 Mg/2 Ml Vial IV PUSH Q4H PRN Nausea Radiology Results: ITS Impressions Chest X-Ray 01/06/24 21:55 IMPRESSION: No acute cardiopulmonary process. Abdomen/Pelvis CT 01/06/24 23:48 IMPRESSION: Moderate esophagitis/gastritis. Gallbladder hydrops, presumably related to fasting or reactive inflammation. New intrahepatic bile duct dilation, no common bile duct dilation, no obstructing stone or mass detected. Correlate with biliary labs. Complicated small bowel diverticulitis, with contained perforation. Multiple inflamed and/or enhancing adjacent diverticuli make a small abscess difficult to exclude. Mucosal hyperemia of the appendix, presumably reactive, however early appendicitis could appear similarly. Modified Barium Swallow 01/07/24 14:22 IMPRESSION: Patient tolerated regular consistency oral feedings in the upright position. Please correlate with speech pathologist findings and specific feeding recommendations. Labs Labs: Laboratory Results - last 24 hr 01/06/24 01/07/24 01/07/24 21:15 00:02 12:51 WBC 13.8 H 8.4 RBC 3.83 L 3.59 L Hgb 12.2 11.3 L Hct 38.2 35.1 L MCV 99.7 97.8 MCH 31.9 31.5 MCHC 31.9 L 32.2 RDW 13.5 13.3 Plt Count 292 D 230 MPV 10.3 10.0 Immature Gran % (Auto) 0.5 0.4 Neut % (Auto) 88.7 H 84.2 H Lymph % (Auto) 6.0 L 9.3 L [place] % (Auto) 3.8 4.3 Eos % (Auto) 0.7 1.4 Baso % (Auto) 0.3 0.4 Lymph # (Auto) 0.83 L 0.78 L [place] # (Auto) 0.5 0.4 Eos # (Auto) 0.1 0.1 Baso # (Auto) 0.0 0.0 Abs Immat Gran (auto) 0.07 H 0.03 Absolute Neuts (auto) 12.3 H 7.1 H Absolute Nucleated RBC 0.0 0.0 Nucleated RBC % 0.0 0.0 Sodium 134 L 137 Potassium 4.2 3.5 Chloride 105 108 H Carbon Dioxide 20 L 25 Anion Gap 9 4 L BUN 31 H D 18 H D Creatinine 1.00 0.90 Estim Creat Clear Calc Not Reportable 35 Estimated GFR 53 L 60 Glucose 190 H 164 H Lactic Acid 1.2 Calcium 9.4 8.8 Magnesium 1.8 2.1 Total Bilirubin 0.7 0.7 AST 24 24 ALT 18 14 Alkaline Phosphatase 80 74 Troponin I < 0.012 Total Protein 7.0 6.0 L Albumin 3.8 3.1 L Urine Color Dark yellow Urine Appearance Clear Urine pH 5.5 Ur Specific [place] 1.030 Urine Protein 1+ H Urine Glucose (UA) Negative Urine Ketones Trace H Ur Blood (Man) Negative Urine Nitrate Negative Urine Bilirubin 1+ H Urine Urobilinogen 1.0 Leukocyte Esterase Rfl Negative Urine RBC 0-2 Urine WBC 0-5 Ur Squamous Epith Cells
--- NOTE | 2024-01-07 16:59 | PM.IMHP ---
H&P: HPI History of Present Illness Date/Time: 01/07/24 16:59 Chief Complaint: Weakness and diarrhea Narrative: 83-year-old white woman with multiple comorbidities including GERD, chronic low back pain, dementia, hypertension, hyperlipidemia, hypothyroidism, history of TIA, zed-[id number]-[id number] diabetes mellitus, vitamin-D deficiency, personal history of UTI presents with weakness and diarrhea and abdominal discomfort. She usually lives at assisted living with her spouse. CT abdomen pelvis demonstrating moderate esophagitis gastritis, new intrahepatic bile duct dilation, gallbladder hydrops, complicated small bowel diverticulitis with contained perforation, mucosal hyperemia of the appendix. Patient admitted on 01/06/2024 Review of Systems Review of Systems: All systems reviewed & are unremarkable except as noted in HPI and below (Subjective) [facility] Past Medical History Medical History Chronic GERD Chronic low back pain Cognitive impairment Dementia Essential (primary) hypertension Frequent falls Gait disorder Hyperlipidemia Hypertension Hypothyroidism Transient ischemic attack Type 2 diabetes mellitus with diabetic neuropathy Urinary incontinence Vitamin D deficiency, unspecified Surgical History Surgical History History of breast biopsy History of colon resection History of D&C History of toe surgery History of total abdominal hysterectomy and bilateral salpingo-oophorectomy Family History Family History Mother Cerebrovascular accident Family history of Alzheimer's disease Father Family history of heart disease in male family member before age 55 Sibling Family history of heart disease in male family member before age 55 Other Diabetes mellitus Family history of cardiovascular disease Hypertension Social History Social History Social History: Surrogate medical decision maker: Daughter Dolores Valdez. Code status: Full code. Smoking packs per day: 0 Smoking cigarettes per day: 0.0 Years smoked: 20 Smoking pack-years: 0.00 Smoking status: Former smoker Second hand tobacco smoke exposure: No Alcohol intake: never Substance use: never Substance use type: does not use Lack of Transportation: No Lack of Food: Never True Current Housing: I Have Housing Concerned About Future Housing: No Difficulty Paying Gas/Electric Bills: No Difficulty Paying for Meds: No Currently Unemployed: No Education: High School Diploma/GED Difficulty w/ Childcare or Family Care: No Living arrangements: with family Additional living arrangements comments: Patient lives with her . 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 Spiritual care concerns: No Meds Home Medications and Allergies Home Medications Medication Instructions Recorded Confirmed Type omega 0-aus-nna-fish oil 1,000 mg 100 cap PO DAILY 08/07/23 01/07/24 History (120 mg-180 mg) capsule (Fish Oil) calcium carbonate 500 mg calcium 500 mg PO DAILY #90 tabs 09/19/23 01/07/24 Rx (1,250 mg) tablet sertraline 50 mg tablet 75 mg PO DAILY #30 tabs 09/22/23 01/07/24 Rx cephalexin 250 mg capsule 250 mg PO QHS 09/29/23 01/07/24 History vibegron 75 mg tablet (Gemtesa) 75 mg PO QHS 09/29/23 01/07/24 History simvastatin 40 mg tablet 40 mg PO DAILY #90 tabs 10/20/23 01/07/24 Rx memantine 10 mg tablet 10 mg PO BID #60 tabs 11/04/23 01/07/24 Rx omeprazole 20 mg capsule,delayed 20 mg PO DAILY #90 caps 11/17/23 01/07/24 Rx release losartan 25 mg tablet 25 mg PO DAILY #90 tabs 11/18/23 01/07/24 Rx aspirin 81 mg chewable tablet 81 mg PO DAILY 01/07/24 01/07/24 History cholecalciferol (vitamin D3) 25 1,000 mcg PO DAILY
[2024-01-07] MEDS: PANTOPRAZOLE SODIUM IV 40 MG VIAL IV PUSH (17:48)
[2024-01-07] MEDS: MEMANTINE 10 MG TABLET PO (17:48)
[2024-01-07] MEDS: ISOSORBIDE MONONITRATE 10 MG TABLET PO (17:48)
[2024-01-08 05:50] VITALS: BP 125/62; PULSE 85; RESP 20; TEMP 36.6; O2SAT 95
[2024-01-08 06:20] LABS: Basophils Percent Auto 0.6 % (0.2-1.2); Eosinophils Absolute Auto 0.3 K/mm3 (0-0.3); Hematocrit 36.1 % (37.0-47.0); Hemoglobin 11.2 g/dL (12.0-15.0); Immature Granulocyte Absolute 0.02 K/mm3 (0.00-0.031); Immature Granulocyte Percent A 0.3 % (0-0.5); Lymphocytes Absolute Auto 0.94 K/mm3 (0.9-3.2); Lymphocytes Percent Auto 13.1 % (18.3-44.2); Mean Corpuscular Hemoglobin 31.1 pg (26-34); Mean Corpuscular Volume 100.3 fl (80-100); Mean Platelet Volume 10.5 fl (7.4-10.4); Monocytes Absolute Auto 0.4 K/mm3 (0.1-0.6); Monocytes Percent Auto 5.4 % (2.6-8.5); Neutrophils Absolute Auto 5.5 K/mm3 (1.3-6.7); Neutrophils Percent Auto 76.6 % (45.5-73.1); Platelet Count Result 217 k/mm3 (150-375); Red Cell Distribution Width 13.5 % (11.5-14.5); White Blood Count 7.2 K/mm3 (4.5-10.0)
[2024-01-08 06:30] LABS: Anion Gap 6 mmol/L (8-16); Blood Urea Nitrogen 12 mg/dL (7-17); Calcium 8.7 mg/dL (8.4-10.2); Carbon Dioxide 24 mmol/L (22-30); Chloride 110 mmol/L (98-107); Estimated CRCL calculation 39 ml/min; Estimated Glomerular Filt Rate > 60; Glucose 122 mg/dL (65-110); Magnesium 1.9 mg/dL (1.6-2.3); Potassium 3.4 mmol/L (3.4-5.0); Sodium 140 mmol/L (137-145)
[2024-01-08] MEDS: MEROPENEM 1 GM/NS 100 ML 1 GM/100 ML BAG IVPB ×2 (10:29→22:55)
[2024-01-08] MEDS: ISOSORBIDE MONONITRATE 10 MG TABLET PO ×2 (10:31→17:41)
[2024-01-08] MEDS: LOSARTAN POTASSIUM 25 MG TABLET PO (10:31)
[2024-01-08] MEDS: MEMANTINE 10 MG TABLET PO ×2 (10:31→17:41)
[2024-01-08] MEDS: SIMVASTATIN 20 MG TABLET 40 MG PO (10:31)
[2024-01-08] MEDS: PANTOPRAZOLE SODIUM IV 40 MG VIAL IV PUSH (10:31)
[2024-01-08] MEDS: ASPIRIN 81 MG CHEWABLE TABLET PO (10:31)
[2024-01-08] MEDS: SERTRALINE HCL 25 MG TABLET 75 MG PO (10:32)
[2024-01-08] MEDS: SODIUM CHLORIDE 0.9% IV 1,000 ML 70 ML IV CONT (12:04)
--- NOTE | 2024-01-08 13:15 | PM.PNGS ---
Progress Note: A&P Assessment and Plan (1) Diverticulitis of small intestine with perforation: Code(s): K57.00 - Diverticulitis of small intestine with perforation and abscess without bleeding Status: Acute Assessment and Plan: exam benign, shaunna clears, will start low fiber diet, cont abx and serial exams Subjective Subjective Date/Time Seen: 01/08/24 13:15 Interval history: feels good, shaunna clears, wants more to eat Review of Systems Review of Systems: All systems reviewed & are unremarkable except as noted in HPI and below Exam Const: General: cooperative, comfortable and no acute distress Resp: Auscultation: clear to auscultation bilaterally Cardio: Rate: regular rate Rhythm: regular rhythm GI: Inspection: normal to inspection and non-distended GI Palp: No abdominal tenderness and Yes Soft to palpation Objective Data Vital Signs Vital Signs: Vital Signs - 24 hr 01/07/24 15:04 01/08/24 05:50 01/08/24 10:29 Temperature 36.3 C L 36.6 C Pulse Rate 78 85 Respiratory Rate 12 20 Blood Pressure 106/58 L 125/62 Pulse Oximetry 92 95 Oxygen Delivery Room Air Intake/Output Intake/Output: Intake & Output 01/05/24 01/06/24 01/07/24 01/08/24 23:59 23:59 23:59 23:59 Intake Total 2660 1220 Balance 2660 1220 Meds/Results Medications: Active Medications Generic Name Dose Route Start Last Admin Trade Name Freq PRN Reason Stop Dose Admin Acetaminophen 650 mg 01/07/24 00:30 Acetaminophen 325 Mg Tablet PO Q4H PRN Mild Pain (1-3) or Fever Aspirin 81 mg 01/08/24 09:00 01/08/24 10:31 Aspirin 81 Mg Chewable Tablet PO 81 mg DAILY TACO Administration Dextrose 12.5 gm 01/07/24 17:05 Dextrose 50% 25 Gm/50 Ml Syringe IV PUSH PRN PRN Hypoglycemia Protocol Glucagon 1 mg 01/07/24 17:05 Glucagon For Inj 1 Mg Vial IM PRN PRN Hypoglycemia Protocol Glucose 15 gm 01/07/24 17:05 Glucose Oral Gel 15 Gm Of Glucse In 37.5 Gm Tube PO PRN PRN Hypoglycemia Protocol Meropenem 1 gm in 100 mls @ 200 mls/hr 01/07/24 11:00 01/08/24 10:59 IVPB Infused Q12H TACO Infusion Sodium Chloride 1,000 mls @ 70 mls/hr 01/07/24 00:30 01/08/24 12:04 Normal Saline Iv IV CONT 70 mls/hr .[id number] TACO Administration Dextrose 1,000 mls @ 100 mls/hr 01/07/24 17:05 Dextrose 5% 1,000 Ml IVPB PRN PRN Hypoglycemia Protocol Isosorbide Mononitrate 10 mg 01/07/24 17:20 01/08/24 10:31 Isosorbide Mononitrate 10 Mg Tablet PO 10 mg BID TACO Administration Losartan Potassium 25 mg 01/08/24 09:00 01/08/24 10:31 Losartan Potassium 25 Mg Tablet PO 25 mg DAILY TACO Administration Memantine 10 mg 01/07/24 17:20 01/08/24 10:31 Memantine 10 Mg Tablet PO 10 mg BID TACO Administration Non-Formulary Medication 75 mg 01/07/24 21:00 Vibegron [Gemtesa] PO 02/06/24 20:59 QHS TACO Ondansetron HCl 4 mg 01/07/24 00:30 Ondansetron Inj 4 Mg/2 Ml Vial IV PUSH Q4H PRN Nausea Pantoprazole Sodium 40 mg 01/07/24 17:05 01/08/24 10:31 Pantoprazole Sodium Iv 40 Mg Vial IV PUSH 40 mg QAM TACO Administration Sertraline HCl 75 mg 01/08/24 09:00 01/08/24 10:32 Sertraline Hcl 25 Mg Tablet PO 75 mg DAILY TACO Administration Simvastatin 40 mg 01/08/24 09:00 01/08/24 10:31 Simvastatin 20 Mg Tablet PO 40 mg DAILY TACO Administration Radiology Results: ITS Impressions Chest X-Ray 01/06/24 21:55 IMPRESSION: No acute cardiopulmonary process. Abdomen/Pelvis CT 01/06/24 23:48 IMPRESSION: Moderate esophagitis/gastritis. Gallbladder hydrops, presumably related to fasting or reactive inflammation. New intrahepatic bile duct dilation, no common bile duct dilation, no obstructing stone or mass detected. Correlate with biliary labs. Complicated small bowel diverticulitis, with contained perforation. Multiple inflame
--- NOTE | 2024-01-08 13:23 | PM.IMPN ---
Progress Note: A&P Assessment and Plan (1) Diverticulitis of small intestine with perforation: Code(s): K57.00 - Diverticulitis of small intestine with perforation and abscess without bleeding Status: Acute Plan 83-year-old white woman with multiple comorbidities including GERD, chronic low back pain, dementia, hypertension, hyperlipidemia, hypothyroidism, history of TIA, [id number] diabetes mellitus, vitamin-D deficiency, personal history of UTI presents with weakness and diarrhea and abdominal discomfort.? She usually lives at assisted living with her spouse.? CT abdomen pelvis demonstrating moderate esophagitis gastritis, new intrahepatic bile duct dilation, gallbladder hydrops, complicated small bowel diverticulitis with contained perforation, mucosal hyperemia of the appendix.? Patient admitted on 01/06/2024 Continue maintenance fluids. clear liquid diet per surgery.? She has not had diarrhea since admission and her abdominal pain is they.? Continue serial abdominal exams.? Currently benign.? Continue meropenem. She had a choking episode on 01/07 and the daughter reports this has been happening at home intermittently.? Modified barium swallow unremarkable.? Nursing staff and patient and daughter educated on her having to sit upright when she eats.? Monitor for aspiration pneumonitis/pneumonia.? Today her leukocytosis is improved.? Check again tomorrow. Have continued her home medications aspirin isosorbide mononitrate losartan memantine sertraline simvastatin and Vibegron.? Start Protonix 40 mg IV q.day On 01/08/2024 Patient has benign abdominal exam. Events a low-fiber low residue diet per General surgery. Continue to monitor. Discontinue normal saline administration FEN:? Advanced diet per surgery. Saline lock IV GI prophylaxis:? Protonix 40 mg IV q.day DVT prophylaxis:? SCDs Lines:? Peripheral IV Code Status:? Full code Dispo:? Stable. Subjective Date/time seen: 01/08/24 13:23 Interval history: No acute overnight events. Daughter at bedside again. Patient cannot elicit complaints and is overall a poor historian. She does want to eat. Review of Systems Review of Systems: All systems reviewed & are unremarkable except as noted in HPI and below (Subjective) Exam Const: General: comfortable and no acute distress Other: Daughter at bedside Resp: Effort & Inspection: normal respiratory effort Auscultation: clear to auscultation bilaterally Cardio: Rate: regular rate Rhythm: regular rhythm GI: GI Palp: Yes Soft to palpation, No Tenderness to palpation present (GI) and No Guarding due to palpation present (GI) Auscultation: normal bowel sounds (Hyperactive) Extrem: General: no edema Objective Data Vital Signs Vital Signs: Vital Signs - 24 hr 01/07/24 15:04 01/08/24 05:50 01/08/24 10:29 Temperature 97.3 F L 97.8 F Pulse Rate 78 85 Respiratory Rate 12 20 Blood Pressure 106/58 L 125/62 Pulse Oximetry 92 95 Oxygen Delivery Room Air Intake/Output Intake/Output: Intake & Output 01/05/24 01/06/24 01/07/24 01/08/24 23:59 23:59 23:59 23:59 Intake Total 2660 1340 Balance 2660 1340 Meds/Results Medications: Active Medications Generic Name Dose Route Start Last Admin Trade Name Freq PRN Reason Stop Dose Admin Acetaminophen 650 mg 01/07/24 00:30 Acetaminophen 325 Mg Tablet PO Q4H PRN Mild Pain (1-3) or Fever Aspirin 81 mg 01/08/24 09:00 01/08/24 10:31 Aspirin 81 Mg Chewable Tablet PO 81 mg DAILY TACO Administration Dextrose 12.5 gm 01/07/24 17:05 Dextrose 50% 25 Gm/50 Ml Syringe IV PUSH PRN PRN Hypoglycemia Protocol Glucagon 1 mg 01/07/24 17:05 Glucagon For Inj 1 Mg Vial IM PRN PRN Hypoglycemia Protocol Glucose 15 gm 01/07/24 17:05 Glucose Oral Gel 15 Gm Of Glucse In 37.5 Gm Tube PO PRN PRN Hypoglycemia Protocol Meropenem 1 gm in 100 mls @ 200 mls/hr 01/07
[2024-01-08 14:00] VITALS: BP 110/52; PULSE 75; RESP 16; TEMP 36.7; O2SAT 98
[2024-01-08 14:53] VITALS: BMI 23.0
[2024-01-08 22:25] VITALS: BP 117/46; PULSE 67; RESP 18; TEMP 36.9; O2SAT 95
[2024-01-08 23:15] VITALS: O2SAT 95
[2024-01-09 06:00] VITALS: BP 129/76; PULSE 68; RESP 18; TEMP 36.2; O2SAT 95
[2024-01-09 06:48] LABS: Basophils Percent Auto 0.6 % (0.2-1.2); Eosinophils Absolute Auto 0.3 K/mm3 (0-0.3); Eosinophils Percent Auto 5.2 % (0-4.4); Hematocrit 34.7 % (37.0-47.0); Hemoglobin 11.2 g/dL (12.0-15.0); Immature Granulocyte Absolute 0.02 K/mm3 (0.00-0.031); Immature Granulocyte Percent A 0.3 % (0-0.5); Lymphocytes Absolute Auto 1.14 K/mm3 (0.9-3.2); Mean Corpuscular HGB Conc 32.3 g/dl (32-36); Mean Corpuscular Hemoglobin 31.5 pg (26-34); Mean Corpuscular Volume 97.7 fl (80-100); Mean Platelet Volume 9.9 fl (7.4-10.4); Monocytes Absolute Auto 0.3 K/mm3 (0.1-0.6); Neutrophils Absolute Auto 4.5 K/mm3 (1.3-6.7); Neutrophils Percent Auto 70.9 % (45.5-73.1); Platelet Count Result 233 k/mm3 (150-375); Red Blood Count 3.55 M/mm3 (4.2-5.4); Red Cell Distribution Width 13.1 % (11.5-14.5); White Blood Count 6.3 K/mm3 (4.5-10.0)
[2024-01-09 07:06] LABS: Anion Gap 5 mmol/L (8-16); Blood Urea Nitrogen 11 mg/dL (7-17); Calcium 8.7 mg/dL (8.4-10.2); Carbon Dioxide 23 mmol/L (22-30); Chloride 111 mmol/L (98-107); Estimated CRCL calculation 39 ml/min; Estimated Glomerular Filt Rate > 60; Glucose 108 mg/dL (65-110); Potassium 3.5 mmol/L (3.4-5.0); Sodium 139 mmol/L (137-145)
[2024-01-09] MEDS: SERTRALINE HCL 25 MG TABLET 75 MG PO (08:37)
[2024-01-09] MEDS: ISOSORBIDE MONONITRATE 10 MG TABLET PO (08:37)
[2024-01-09] MEDS: LOSARTAN POTASSIUM 25 MG TABLET PO (08:37)
[2024-01-09] MEDS: ASPIRIN 81 MG CHEWABLE TABLET PO (08:37)
[2024-01-09] MEDS: PANTOPRAZOLE SODIUM IV 40 MG VIAL IV PUSH (08:37)
[2024-01-09] MEDS: MEMANTINE 10 MG TABLET PO (08:37)
[2024-01-09] MEDS: SIMVASTATIN 20 MG TABLET 40 MG PO (08:38)
[2024-01-09 08:43] VITALS: BP 138/83
[2024-01-09] MEDS: MEROPENEM 1 GM/NS 100 ML 1 GM/100 ML BAG IVPB (11:47)
[2024-01-09 14:00] VITALS: BP 120/63; PULSE 71; RESP 14; TEMP 36.3; O2SAT 95
--- NOTE | 2024-01-09 14:15 | PM.PNGS ---
Progress Note: A&P Assessment and Plan (1) Diverticulitis of small intestine with perforation: Code(s): K57.00 - Diverticulitis of small intestine with perforation and abscess without bleeding Status: Acute Assessment and Plan: doing well, shaunna low fiber diet, exam completely benign, ok to dc from surgical standpoint c low fiber diet, po abx, and f/u 2 wks Subjective Subjective Date/Time Seen: 01/09/24 14:15 Interval history: feels good, shaunna low fiber diet, +bowel fxn Review of Systems Review of Systems: All systems reviewed & are unremarkable except as noted in HPI and below Exam Const: General: cooperative, comfortable and no acute distress Resp: Auscultation: clear to auscultation bilaterally Cardio: Rate: regular rate Rhythm: regular rhythm GI: Inspection: normal to inspection and non-distended GI Palp: No abdominal tenderness, Yes Soft to palpation and No Tenderness to palpation present (GI) Objective Data Vital Signs Vital Signs: Vital Signs - 24 hr 01/08/24 22:25 01/08/24 23:15 01/09/24 06:00 Temperature 36.9 C 36.2 C L Pulse Rate 67 68 Respiratory Rate 18 18 Blood Pressure 117/46 L 129/76 Pulse Oximetry 95 95 95 Oxygen Delivery Room Air 01/09/24 08:43 Temperature Pulse Rate Respiratory Rate Blood Pressure 138/83 Pulse Oximetry Oxygen Delivery Intake/Output Intake/Output: Intake & Output 01/06/24 01/07/24 01/08/24 01/09/24 23:59 23:59 23:59 23:59 Intake Total 2660 1560 1660 Balance 2660 1560 1660 Meds/Results Medications: Active Medications Generic Name Dose Route Start Last Admin Trade Name Freq PRN Reason Stop Dose Admin Acetaminophen 650 mg 01/07/24 00:30 Acetaminophen 325 Mg Tablet PO Q4H PRN Mild Pain (1-3) or Fever Aspirin 81 mg 01/08/24 09:00 01/09/24 08:37 Aspirin 81 Mg Chewable Tablet PO 81 mg DAILY TACO Administration Dextrose 12.5 gm 01/07/24 17:05 Dextrose 50% 25 Gm/50 Ml Syringe IV PUSH PRN PRN Hypoglycemia Protocol Glucagon 1 mg 01/07/24 17:05 Glucagon For Inj 1 Mg Vial IM PRN PRN Hypoglycemia Protocol Glucose 15 gm 01/07/24 17:05 Glucose Oral Gel 15 Gm Of Glucse In 37.5 Gm Tube PO PRN PRN Hypoglycemia Protocol Meropenem 1 gm in 100 mls @ 200 mls/hr 01/07/24 11:00 01/09/24 11:47 IVPB 100 mls/hr Q12H TACO Administration Dextrose 1,000 mls @ 100 mls/hr 01/07/24 17:05 Dextrose 5% 1,000 Ml IVPB PRN PRN Hypoglycemia Protocol Isosorbide Mononitrate 10 mg 01/07/24 17:20 01/09/24 08:37 Isosorbide Mononitrate 10 Mg Tablet PO 10 mg BID TCAO Administration Losartan Potassium 25 mg 01/08/24 09:00 01/09/24 08:37 Losartan Potassium 25 Mg Tablet PO 25 mg DAILY TACO Administration Memantine 10 mg 01/07/24 17:20 01/09/24 08:37 Memantine 10 Mg Tablet PO 10 mg BID TACO Administration Non-Formulary Medication 75 mg 01/07/24 21:00 Vibegron [Gemtesa] PO 02/06/24 20:59 QHS TACO Ondansetron HCl 4 mg 01/07/24 00:30 Ondansetron Inj 4 Mg/2 Ml Vial IV PUSH Q4H PRN Nausea Pantoprazole Sodium 40 mg 01/07/24 17:05 01/09/24 08:37 Pantoprazole Sodium Iv 40 Mg Vial IV PUSH 40 mg QAM TACO Administration Sertraline HCl 75 mg 01/08/24 09:00 01/09/24 08:37 Sertraline Hcl 25 Mg Tablet PO 75 mg DAILY TACO Administration Simvastatin 40 mg 01/08/24 09:00 01/09/24 08:38 Simvastatin 20 Mg Tablet PO 40 mg DAILY TACO Administration Radiology Results: ITS Impressions Chest X-Ray 01/06/24 21:55 IMPRESSION: No acute cardiopulmonary process. Abdomen/Pelvis CT 01/06/24 23:48 IMPRESSION: Moderate esophagitis/gastritis. Gallbladder hydrops, presumably related to fasting or reactive inflammation. New intrahepatic bile duct dilation, no common bile duct dilation, no obstructing stone or mass detected. Correlate with biliary lab
--- NOTE | 2024-01-12 17:42 | PM.DS ---
DS: Admitting Diagnosis Discharge Date 01/09/24 Admitting Diagnosis Abdominal pain and diarrhea DS: Discharge Diagnosis Discharge Diagnosis (1) Diverticulitis of small intestine with perforation: Code(s): K57.00 - Diverticulitis of small intestine with perforation and abscess without bleeding Status: Acute (2) Acute diverticulitis: Code(s): K57.92 - Diverticulitis of intestine, part unspecified, without perforation or abscess without bleeding Status: Acute (3) Generalized weakness: Code(s): R53.1 - Weakness Status: Acute DS: Summary Hospital Course Hospital Course: 83-year-old white woman with multiple comorbidities including GERD, chronic low back pain, dementia, hypertension, hyperlipidemia, hypothyroidism, history of TIA, sps-tcetkaw-glaqiplrr diabetes mellitus, vitamin-D deficiency, personal history of UTI presents with weakness and diarrhea and abdominal discomfort.? She usually lives at assisted living with her spouse.? CT abdomen pelvis demonstrating moderate esophagitis gastritis, new intrahepatic bile duct dilation, gallbladder hydrops, complicated small bowel diverticulitis with contained perforation, mucosal hyperemia of the appendix. The patient was treated conservatively. Leukocytosis improved and otherwise no evidence of sepsis. General surgery was consulted and the patient stable for discharge to home on 01/09/2024 with follow-up to General surgery as an outpatient. The patient was full code during her admission. Time Spent with Patient Time attestation: Total time spent providing and/or coordinating discharge services: Exam Const: General: comfortable and no acute distress Other: Daughter at bedside Resp: Effort & Inspection: normal respiratory effort Auscultation: clear to auscultation bilaterally Cardio: Rate: regular rate Rhythm: regular rhythm GI: GI Palp: Yes Soft to palpation, No Tenderness to palpation present (GI) and No Guarding due to palpation present (GI) Auscultation: normal bowel sounds (Hyperactive) Extrem: General: no edema Discharge Plan Discharge Attending physician on discharge: Lidia Britton Consulting providers: Emily Perea; Nata Clemens; Beto Shaikh; Josue Hui; Brittny Soriano Discharging Clinician: Lidia Britton Patient Disposition: [place] [facility] Activity: may shower Diet: low fiber Discharge Instructions: Per Care Coordination: Please fax discharge paperwork to [facility] at [phone] Patient Instructions: Antibiotic Form Stand Alone Forms: General Discharge Information Follow-up/Referrals: Emily Perea MD [Physician] - 2 Weeks (f/u on diverticulitis) Chino Ramon MD [Primary Care Provider] - 2 Weeks (follow up on medical conditions and hospital stay) Discharge Medications: New levofloxacin 750 mg tablet 750 mg PO DAILY Qty: 5 0RF Rx Instructions: hold aricept while taking this drug Continued omega 6-ymp-xra-fish oil [Fish Oil] 1,000 mg (120 mg-180 mg) capsule 100 cap PO DAILY sertraline 50 mg tablet 75 mg PO DAILY Qty: 30 0RF docusate sodium 50 mg Capsule 50 mg PO DAILY PRN (Reason: Constipation) metformin 500 mg tablet 500 mg PO BID Rx Instructions: TAKE ONE TABLET BY MOUTH TWICE DAILY donepezil [Aricept] 10 mg tablet 10 mg PO DAILY magnesium oxide 400 mg (241.3 mg magnesium) tablet 400 mg PO DAILY Rx Instructions: TAKE ONE TABLET BY MOUTH DAILY aspirin 81 mg tablet,chewable 81 mg PO DAILY vitamin B complex [B Complex-Vitamin B12] Tablet 100 tablet PO DAILY isosorbide mononitrate 10 mg tablet 10 mg PO BID cholecalciferol (vitamin D3) 25 mcg (1,000 unit) capsule 1,000 mcg PO DAILY Rx Instructions: TAKE ONE CAPSULE BY MOUTH DAILY calcium carbonate 500 mg calcium (1,250 mg) tablet 500 mg PO DAILY Qty: 90 1RF Gemtesa 75 mg tablet 7
== END 2024-01-09 15:55 | DRG 392 ==
LOC: ANHED 01-07 00:38 → ANH3MED 01-07 01:44
PROVIDERS: Admitting Provider Internal Medicine; Emergency Provider Emergency Medicine; PCP Family Medicine; Visit Provider General Practice
DX: K57.00 Diverticulitis of small intestine with perforation and abscess without bleeding (principal); I35.0 Nonrheumatic aortic (valve) stenosis; I10 Essential (primary) hypertension; E55.9 Vitamin D deficiency, unspecified; E78.5 Hyperlipidemia, unspecified; E03.9 Hypothyroidism, unspecified; E11.40 Type 2 diabetes mellitus with diabetic neuropathy, unspecified; K21.9 Gastro-esophageal reflux disease without esophagitis; M54.59 Other low back pain; G89.29 Other chronic pain; R26.9 Unspecified abnormalities of gait and mobility; R29.6 Repeated falls; T17.908A Unspecified foreign body in respiratory tract, part unspecified causing other injury, initial encounter; F03.90 Unspecified dementia, unspecified severity, without behavioral disturbance, psychotic disturbance, mood disturbance, and anxiety; Z20.822 Contact with and (suspected) exposure to COVID-19; Z79.82 Long term (current) use of aspirin; Z86.73 Personal history of transient ischemic attack (TIA), and cerebral infarction without residual deficits; Z87.891 Personal history of nicotine dependence
CPT/HCPCS: 36415; 71045; 74177; 80048; 80053; 81001; 83605; 83735; 84484; 85025; 87637; 92611; 93005; 99285; A9270; C9113; J2185; J3475; J7030; Q9967

== ENCOUNTER 2024-02-13 11:47 | Outpatient (CLI) | payer MEDICARE, SELFPAY ==
[2024-02-13 13:02] LABS: Basophils Absolute Auto 0.1 K/mm3 (0.0-0.1); Basophils Percent Auto 1.1 % (0.2-1.2); Eosinophils Absolute Auto 0.6 K/mm3 (0-0.3); Eosinophils Percent Auto 6.5 % (0-4.4); Hematocrit 43.3 % (37.0-47.0); Hemoglobin 13.8 g/dL (12.0-15.0); Immature Granulocyte Absolute 0.02 K/mm3 (0.00-0.031); Immature Granulocyte Percent A 0.2 % (0-0.5); Lymphocytes Absolute Auto 1.48 K/mm3 (0.9-3.2); Lymphocytes Percent Auto 17.6 % (18.3-44.2); Mean Corpuscular HGB Conc 31.9 g/dl (32-36); Mean Corpuscular Volume 97.3 fl (80-100); Mean Platelet Volume 11.1 fl (7.4-10.4); Monocytes Absolute Auto 0.5 K/mm3 (0.1-0.6); Monocytes Percent Auto 6.3 % (2.6-8.5); Neutrophils Absolute Auto 5.8 K/mm3 (1.3-6.7); Neutrophils Percent Auto 68.3 % (45.5-73.1); Platelet Count Result 239 k/mm3 (150-375); Red Blood Count 4.45 M/mm3 (4.2-5.4); Red Cell Distribution Width 14.1 % (11.5-14.5); White Blood Count 8.4 K/mm3 (4.5-10.0)
[2024-02-13 13:17] LABS: Alanine Aminotransferase 17 U/L (6-35); Albumin Level 4.2 g/dL (3.5-5.1); Alkaline Phosphatase 108 U/L (38-126); Anion Gap 11 mmol/L (8-16); Aspartate Amino Transferase 27 U/L (14-36); Bilirubin,Total 0.4 mg/dL (0.2-1.3); Blood Urea Nitrogen 26 mg/dL (7-17); Calcium 9.8 mg/dL (8.4-10.2); Carbon Dioxide 25 mmol/L (22-30); Chloride 107 mmol/L (98-107); Cholesterol 130 mg/dL (0-200); Estimated Glomerular Filt Rate 53; Glucose 122 mg/dL (65-110); HDL Direct 37 mg/dL; Sodium 143 mmol/L (137-145); Triglycerides 149 mg/dL (<150)
[2024-02-13 13:28] LABS: LDL Cholesterol Direct 69 mg/dL
[2024-02-13 13:49] LABS: Vitamin D 25 Hydroxy 61.6 ng/mL
== END 2024-02-13 11:48 | disposition home or self-care (01) ==
LOC: ANHLAB 11:52
PROVIDERS: PCP Family Medicine; Visit Provider Nurse Practitioner Family
DX: E53.8 Deficiency of other specified B group vitamins (principal); E55.9 Vitamin D deficiency, unspecified; I35.0 Nonrheumatic aortic (valve) stenosis; E78.5 Hyperlipidemia, unspecified; I10 Essential (primary) hypertension; R30.0 Dysuria; Z79.899 Other long term (current) drug therapy; E11.40 Type 2 diabetes mellitus with diabetic neuropathy, unspecified; Z13.0 Encounter for screening for diseases of the blood and blood-forming organs and certain disorders involving the immune mechanism
CPT/HCPCS: 36415; 80053; 80061; 82306; 82607; 83036; 85025

== ENCOUNTER 2024-07-12 15:21 | Emergency (ER) | payer MEDICARE, SELFPAY ==
[2024-07-12] VITALS (7 sets, daily range): BP systolic 122–139; BP diastolic 70–85; PULSE 78–89; RESP 15–21; TEMP 36.2; O2SAT 95–99
--- NOTE | ~2024-07-12 | XR_ITS ---
XR chest 1V portable Ordering provider: Carrillo Welsh MD History: 84 years Female with . TRANSIENT ALTERATION OF AWARENESS, HX OF CVA . Comparison: January 06, 2024 FINDINGS: MEDIASTINUM: The cardiac silhouette is not enlarged. LUNGS: No effusions or pneumothorax. Opacification and the left lung base medially is seen which may be atelectasis versus pneumonia. OTHER: No free air under the diaphragm. Degenerative changes of the spine IMPRESSION: Pneumonia versus atelectasis in the left lung base medially. Reviewed, dictated and finalized at location A.
--- NOTE | ~2024-07-12 | CT_ITS ---
EXAMINATION: CTA BRAIN/CAROTID DATE: 07/12/2024 15:41 INDICATION: Stroke with left-sided facial droop TECHNIQUE: Computed tomographic angiography (CTA) of the head and neck was performed with 100 mL Omni paque-350 intravenous contrast. Multiplanar reconstructions and maximum intensity projection 3D-recon structions of the carotid arteries and of the intracranial arteries were created by the technologist on a separate workstation. Precontrast CT of the head was also obtained. Automated exposure control and iterative reconstruction technique were employed.The dose-length product was 974.87 mGy-cm. COMPARISON: None. FINDINGS: Carotid arteries: Visualized aortic arch is normal in caliber with small amount of nonhemodynamically significant ather osclerotic plaque and no dissection. Additional small amount of nonhemodynamically significant athero sclerotic plaque at the bilateral proximal subclavian arteries. Small amount of atherosclerotic plaqu e at the bilateral carotid bifurcations with no evident plaque and 0% stenosis of the right and left carotid bulbs relative to normal distal artery lumen diameter (NASCET criteria). Cervical soft tissue s are unremarkable. Mild groundglass opacities and mild smooth septal line thickening in the suprahil ar regions of the bilateral upper lungs consistent with mild pulmonary edema. A few likely benign sub centimeter right thyroid nodules. Cervical soft tissues are otherwise unremarkable. Moderate to sever e cervical spondylosis. Intracranial arteries Bilateral vertebral arteries are codominant. There is 9 hemodynamically significant atherosclerotic p laque along the bilateral carotid siphons and minimal amount at the left vertebral artery. There is n o hemodynamically significant stenosis in the vertebral, basilar and internal carotid arteries. There are no aneurysms identified. Both A1 and P1 segments are patent. There is a patent anterior communi cating artery. Cerebral arterial arborization appears symmetric. IMPRESSION: 1. 0% stenosis of the right and left carotid bulbs relative to normal distal artery lumen diameter (N ASCET criteria). 2. Small amount of nonhemodynamically significant atherosclerotic plaque at the bilateral carotid sip hons and along the intracranial left vertebral artery. Otherwise unremarkable cerebral CT angiogram w ith no aneurysm, hemodynamically since and stenosis or thrombosis. 3. Groundglass opacity and some smooth septal line thickening in the suprahilar upper lungs consisten t with mild pulmonary edema. Reviewed, dictated and finalized at location A. IMPRESSION: 1. 0% stenosis of the right and left carotid bulbs relative to normal distal ar luis manuel lumen diameter (NASCET criteria). 2. Small amount of nonhemodynamically significant atherosclerotic plaque at the bilateral carotid siphons and along the intracranial left vertebral artery. Ot herwise unremarkable cerebral CT angiogram with no aneurysm, hemodynamically si nce and stenosis or thrombosis. 3. Groundglass opacity and some smooth septal line thickening in the suprahilar upper lungs consistent with mild pulmonary edema.
--- NOTE | ~2024-07-12 | CT_ITS ---
EXAMINATION: CT brain wo con DATE: 07/12/2024 15:30 INDICATION: Stroke presenting with left facial droop TECHNIQUE: Computed tomography (CT) of the head was performed without intravenous contrast. Sagittal and coronal reconstructions were performed. The mA was adjusted according to patient size. Iterative reconstruction technique was employed. The dose-length product was 605.33 mGy-cm. COMPARISON: head CT dated 07/15/2022 FINDINGS: No acute intracranial hemorrhage, acute infarction or abnormal extra axial fluid collection. Again se en are scattered areas of white matter hypoattenuation consistent with chronic small vessel ischemic disease. Symmetric prominence of the sulci consistent with moderate age-appropriate diffuse cerebral volume loss. Ventricles are normal and symmetric. No mass/mass effect. Intracranial calcified cerebr al atherosclerosis is noted. Small bilateral mastoid effusions. The orbitsand paranasal sinuses are n ormal. IMPRESSION: 1. No acute intracranial process. Line 2. Stable appearance of age-related changes including moderate diffuse volume loss and moderate scatt ered white matter hypoattenuation consistent with chronic small vessel ischemic disease. Reviewed, dictated and finalized at location A. IMPRESSION: 1. No acute intracranial process. Line 2. Stable appearance of age-related changes including moderate diffuse volume l oss and moderate scattered white matter hypoattenuation consistent with chronic small vessel ischemic disease.
--- NOTE | 2024-07-12 15:24 | ECG_ITS ---
Test Date: 2024-07-12 15:47:55 Measurements Intervals [place] Rate: 85 P: 78 CO: 172 QRS: -50 QRSD: 129 T: 57 QT: 421 QTc: 502 Interpretive Statements SINUS RHYTHM WITH OCCASIONAL SUPRAVENTRICULAR PREMATURE COMPLEXES RIGHT BUNDLE BRANCH BLOCK [120+ ms QRS DURATION, UPRIGHT V1, 40+ ms S IN I/aVL/V4/V5/V6] LEFT ANTERIOR FASCICULAR BLOCK [QRS AXIS <= -45, QR IN I, RS IN II] POSSIBLE SEPTAL MYOCARDIAL INFARCTION , OF INDETERMINATE AGE [30 ms Q WAVE IN V1/V2] No previous ECG available for comparison Electronically Signed On 07-13-2024 08:50:04 CDT by Brittny Soriano M.D.
--- NOTE | 2024-07-12 15:26 | PC.NURSE ---
LKN [id number]
[2024-07-12 15:39] LABS: Estimated Glomerular Filt Rate 39
--- NOTE | 2024-07-12 15:39 | ED.NEUROSD ---
HPI - Neuro Symptoms/Deficit General Chief Complaint: Suspected CVA Stated Complaint: ?AMS History of Present Illness HPI Narrative: This is an 84-year-old female with a past medical history significant for dementia, hypertension, hyperlipidemia, diabetes and previous TIAs with no residual deficits of strokes. Does not take any blood thinner medications. No traumas. She presents today via EMS for concerns of neurological deficits including left-sided facial droop and right-sided lower extremity weakness. Last known well 1:10 p.m. which was corroborated by family members were providing collateral information. Patient is normally awake and alert x2 at her baseline. She normally has no deficits and ambulates with a walker. shelter staff reported that she had a episode where she became unresponsive but still conscious, staring off in the space, became groggy and less interactive than normal. Presently she is awake alert and answering my questions, does have an appreciable left-sided facial droop and slurring of her speech and cannot move her right lower extremity. Consistent with acute stroke. She was sent to the CT scanner from ambulance bay. Related Data Home Medications Medication Instructions Recorded Confirmed omega 6-gvh-rav-fish oil 1,000 mg 100 cap PO DAILY 08/07/23 06/22/24 (120 mg-180 mg) capsule (Fish Oil) vibegron 75 mg tablet (Gemtesa) 75 mg PO QHS 09/29/23 06/22/24 cholecalciferol (vitamin D3) 25 1,000 mcg PO DAILY 01/07/24 06/22/24 mcg (1,000 unit) capsule docusate sodium 50 mg capsule 50 mg PO DAILY PRN Constipation 01/07/24 06/22/24 isosorbide mononitrate 10 mg tablet 10 mg PO BID 01/07/24 06/22/24 diclofenac sodium 1 % topical gel 4 g topical QID 02/20/24 06/22/24 vitamin B complex 1 tablet PO DAILY 02/20/24 06/22/24 Allergies Allergy/AdvReac Type Severity Reaction Status Date / Time lidocaine Allergy Unknown Unknown Verified 03/03/24 14:48 metronidazole Allergy Unknown Unknown Verified 03/03/24 14:48 mirabegron Allergy Unknown Unknown Verified 03/03/24 14:48 Penicillins Allergy Unknown Unknown Verified 03/03/24 14:48 Sulfa (Sulfonamide Allergy Unknown Itching Verified 03/03/24 14:48 Antibiotics) Review of Systems Review of Systems: As reviewed above in [facility] Past Medical History Medical History Chronic GERD Cognitive impairment Essential (primary) hypertension Frequent falls Gait disorder History of dementia Hyperlipidemia Hypothyroidism Primary insomnia Transient ischemic attack Type 2 diabetes mellitus with diabetic neuropathy Urinary incontinence Vitamin D deficiency, unspecified Surgical History Surgical History History of breast biopsy History of colon resection History of D&C History of toe surgery History of total abdominal hysterectomy and bilateral salpingo-oophorectomy Family History Family History Mother Cerebrovascular accident Family history of Alzheimer's disease Father Family history of heart disease in male family member before age 55 Sibling Family history of heart disease in male family member before age 55 Other Diabetes mellitus Family history of cardiovascular disease Hypertension Social History Social History Social History: Surrogate medical decision maker: Daughter Dolores Valdez. Code status: Full code. Smoking packs per day: 0 Smoking cigarettes per day: 0.0 Years smoked: 20 Smoking pack-years: 0.00 Smoking status: Former smoker Second hand tobacco smoke exposure: No Alcohol intake: never Substance use: never Substance use type: does not use Lack of Transportation: No Lack of Food: Never True Current Housing: I Have Housing Concerned About Future Housing: No
[2024-07-12 15:44] LABS: Glucose Point of Care 107 mg/dl (65-105)
[2024-07-12 15:46] LABS: Basophils Absolute Auto 0.1 K/mm3 (0.0-0.1); Basophils Percent Auto 1.2 % (0.2-1.2); Eosinophils Absolute Auto 0.3 K/mm3 (0-0.3); Eosinophils Percent Auto 5.3 % (0-4.4); Hematocrit 39.6 % (37.0-47.0); Hemoglobin 13.1 g/dL (12.0-15.0); Immature Granulocyte Absolute 0.02 K/mm3 (0.00-0.031); Immature Granulocyte Percent A 0.4 % (0-0.5); Lymphocytes Absolute Auto 1.77 K/mm3 (0.9-3.2); Lymphocytes Percent Auto 31.4 % (18.3-44.2); Mean Corpuscular HGB Conc 33.1 g/dl (32-36); Mean Corpuscular Hemoglobin 33.3 pg (26-34); Mean Corpuscular Volume 100.8 fl (80-100); Monocytes Absolute Auto 0.4 K/mm3 (0.1-0.6); Monocytes Percent Auto 6.6 % (2.6-8.5); Neutrophils Absolute Auto 3.1 K/mm3 (1.3-6.7); Neutrophils Percent Auto 55.1 % (45.5-73.1); Platelet Count Result 185 k/mm3 (150-375); Red Blood Count 3.93 M/mm3 (4.2-5.4); Red Cell Distribution Width 13.9 % (11.5-14.5); White Blood Count 5.6 K/mm3 (4.5-10.0)
[2024-07-12 15:55] LABS: INR 0.9; Prothrombin Time 13.1 Seconds (11.1-14.7)
[2024-07-12 15:56] LABS: Partial Thromboplastin Time 23.8 Seconds (22.3-36.8)
[2024-07-12 15:59] LABS: Alanine Aminotransferase 16 U/L (6-35); Albumin Level 3.8 g/dL (3.5-5.1); Alkaline Phosphatase 77 U/L (38-126); Anion Gap 12 mmol/L (4-12); Aspartate Amino Transferase 27 U/L (14-36); Bilirubin,Total 0.3 mg/dL (0.2-1.3); Blood Urea Nitrogen 26 mg/dL (7-17); Calcium 9.3 mg/dL (8.4-10.2); Carbon Dioxide 23 mmol/L (22-30); Chloride 106 mmol/L (98-107); Estimated CRCL calculation 26 ml/min; Estimated Glomerular Filt Rate 47; Glucose 103 mg/dL (65-110); Potassium 4.6 mmol/L (3.4-5.0); Sodium 141 mmol/L (137-145)
[2024-07-12] MEDS: SODIUM CHLORIDE 0.9% IV 1,000 ML 999 ML IV CONT (16:00)
[2024-07-12] MEDS: ONDANSETRON INJ 4 MG/2 ML VIAL IV PUSH (16:00)
[2024-07-12] MEDS: TENECTEPLASE 50 MG/10 ML VIAL 16.25 MG IV PUSH (16:03)
[2024-07-12 16:11] LABS: Troponin I < 0.012 ng/mL (0.000-0.034)
== END 2024-07-12 16:35 | disposition short-term general hospital (02) ==
PROVIDERS: Emergency Provider Student in an Organized Health Care Education/Training Program; PCP Nurse Practitioner Family
DX: I63.9 Cerebral infarction, unspecified (principal); R29.810 Facial weakness; G83.11 Monoplegia of lower limb affecting right dominant side; R29.706 NIHSS score 6; F03.90 Unspecified dementia, unspecified severity, without behavioral disturbance, psychotic disturbance, mood disturbance, and anxiety; I10 Essential (primary) hypertension; E11.40 Type 2 diabetes mellitus with diabetic neuropathy, unspecified; E55.9 Vitamin D deficiency, unspecified; E78.5 Hyperlipidemia, unspecified; K21.9 Gastro-esophageal reflux disease without esophagitis; R32 Unspecified urinary incontinence; Z86.73 Personal history of transient ischemic attack (TIA), and cerebral infarction without residual deficits; E03.9 Hypothyroidism, unspecified; Z87.891 Personal history of nicotine dependence; Z90.49 Acquired absence of other specified parts of digestive tract; Z90.710 Acquired absence of both cervix and uterus; Z90.79 Acquired absence of other genital organ(s); Z90.722 Acquired absence of ovaries, bilateral; Z79.82 Long term (current) use of aspirin; Z79.84 Long term (current) use of oral hypoglycemic drugs; Z79.899 Other long term (current) drug therapy; R91.8 Other nonspecific abnormal finding of lung field; I49.1 Atrial premature depolarization; I45.10 Unspecified right bundle-branch block
CPT/HCPCS: 36415; 37195; 70450; 70496; 70498; 71045; 80053; 82948; 84484; 85025; 85610; 85730; 93005; 96374; 99285; J2405; J3101; J7030; Q9967

== ENCOUNTER 2024-08-06 16:51 | Inpatient (IN) | payer MEDICARE, SELFPAY ==
[2024-08-06] VITALS (9 sets, daily range): BP systolic 93–118; BP diastolic 51–70; PULSE 83–109; RESP 17–20; TEMP 38.1; O2SAT 94–99
--- NOTE | ~2024-08-06 | CT_ITS ---
EXAMINATION: CT brain wo con DATE: 08/06/2024 19:39 INDICATION: Altered mental status. TECHNIQUE: Computed tomography (CT) of the head was performed without intravenous contrast. The mA wa s adjusted according to patient size. Iterative reconstruction technique was employed. The dose-lengt h product was 605.33 mGy-cm. COMPARISON: Head CT 07/12/2024 FINDINGS: There are scattered areas of low attenuation in the cerebral white matter. There is no intr acranial hemorrhage, acute infarction, or abnormal intracranial mass lesion. The ventricles are neri l in size. There is mild mucosal thickening in the ethmoid sinuses. The orbits are normal. There are bilateral mastoid effusions. IMPRESSION: 1. Moderate nonspecific cerebral white matter disease, which likely represents chronic small vessel i schemic disease. Reviewed, dictated and finalized at location A. IMPRESSION: 1. Moderate nonspecific cerebral white matter disease, which likely represents chronic small vessel ischemic disease.
--- NOTE | ~2024-08-06 | US_ITS ---
EXAMINATION: US abdomen limited DATE: 08/06/2024 21:27 INDICATION: Gallbladder distention. TECHNIQUE: Multiple grayscale and Doppler ultrasound images of the abdomen were obtained. COMPARISON: CT abdomen and pelvis 08/06/2024 FINDINGS: The pancreas is obscured by bowel gas. The liver is normal without focal lesion. There is n ormal flow in main portal vein. The gallbladder is distended. No gallstones or gallbladder wall thick ening. There is no sonographic Aldridge's sign. The common duct is normal and measures 7 mm. IMPRESSION: 1. Gallbladder distention, which may be secondary to fasting. Reviewed, dictated and finalized at location A.
--- NOTE | ~2024-08-06 | CT_ITS ---
EXAMINATION: CTA chest PE protocol DATE: 08/06/2024 20:41 INDICATION: Shortness of breath. TECHNIQUE: Computed tomography angiography (CTA) of the chest was performed with 100 mL Omnipaque-350 intravenous contrast timed to evaluate the pulmonary arteries. Coronal maximum intensity projection 3D-reconstructions were created by the technologist. Automated exposure control and iterative reconst ruction technique were employed. The dose-length product was 313.76 mGy-cm. COMPARISON: Chest CT 01/20/2023 FINDINGS: The lungs demonstrate mild atelectasis. No pleural effusion. The heart size is normal. Ther e are coronary artery calcifications. No pericardial effusion. There is a moderate-sized sliding hiat al hernia. There are cysts in the liver measuring up to 1.9 cm. The gallbladder is distended. There i s no pulmonary embolus. There is mild chronic anterior wedging of multiple vertebral bodies. IMPRESSION: 1. No pulmonary embolus. 2. Gallbladder distention, which may be secondary to fasting. Correlate with physical exam to exclude acute cholecystitis. 3. Moderate-sized sliding hiatal hernia. Reviewed, dictated and finalized at location A. IMPRESSION: 1. No pulmonary embolus. 2. Gallbladder distention, which may be secondary to fasting. Correlate with ph ysical exam to exclude acute cholecystitis. 3. Moderate-sized sliding hiatal hernia.
--- NOTE | ~2024-08-06 | XR_ITS ---
EXAMINATION: XR chest 2V DATE: 08/06/2024 17:31 INDICATION: Weakness. TECHNIQUE: Frontal and lateral views of the chest were obtained. COMPARISON: Chest single view 07/12/2024 FINDINGS: There is mild atelectasis at the lung bases. No pleural effusion or pneumothorax. The heart size is normal. There is a large hiatal hernia. IMPRESSION: 1. Mild atelectasis at the lung bases. 2. Large hiatal hernia. Reviewed, dictated and finalized at location A.
--- NOTE | ~2024-08-06 | CT_ITS ---
EXAMINATION: CT abdomen pelvis wo con DATE: 08/06/2024 20:41 INDICATION: Back and flank pain. TECHNIQUE: Computed tomography (CT) of the abdomen and pelvis was performed without intravenous contr ast. Automated exposure control and iterative reconstruction technique were employed. The dose-length product was 214.45 mGy-cm. COMPARISON: CT abdomen and pelvis 01/08/2024 FINDINGS: The visualized portions of lung bases demonstrate mild atelectasis. No pleural effusion. Th e heart size is normal. There are coronary artery calcifications. There are calcifications of the aor tic valve. No pericardial effusion. There is a 14 mm cyst in the liver. The gallbladder is distended. There is a moderate-sized sliding hiatal hernia. The spleen, pancreas, and left adrenal gland are no rmal. There is a 2.3 cm mass in right adrenal gland measuring soft tissue attenuation without change in size, likely an adenoma. There is a 3.2 cm cyst in right kidney. Left kidney is normal. There are scattered diverticula in small bowel. There is diverticulosis of the colon without evidence of divert iculitis. The appendix is normal. There are no pathologically enlarged lymph nodes. There is no free intraperitoneal fluid. There is thoracolumbar levoscoliosis and severe spondylosis. There are chronic compression fractures of L1, T7, and T8. IMPRESSION: 1. No urolithiasis. 2. Gallbladder distention again seen which may be secondary to fasting. Correlate with physical exam to exclude acute cholecystitis. 3. Moderate-sized sliding hiatal hernia. Reviewed, dictated and finalized at location A. IMPRESSION: 1. No urolithiasis. 2. Gallbladder distention again seen which may be secondary to fasting. Correla te with physical exam to exclude acute cholecystitis. 3. Moderate-sized sliding hiatal hernia.
--- NOTE | 2024-08-06 17:11 | ECG_ITS ---
Test Date: 2024-08-06 17:00:55 Measurements Intervals [place]ley Rate: 108 P: 42 CA: 160 QRS: -78 QRSD: 125 T: 29 QT: 376 QTc: 506 Interpretive Statements SINUS TACHYCARDIA RIGHT BUNDLE BRANCH BLOCK LEFT ANTERIOR FASCICULAR BLOCK BASELINE ARTIFACT- I, III, AVR, AVL, AVF, V6 ABNORMAL ECG Compared to ECG 07/12/2024 15:47:55 HEART RATE HAS INCREASED Electronically Signed On 08-06-2024 17:27:20 CDT by Murtaza Vu D.O.
[2024-08-06 17:42] LABS: Basophils Percent Auto 0.2 % (0.2-1.2); Hematocrit 36.6 % (37.0-47.0); Immature Granulocyte Absolute 0.05 K/mm3 (0.00-0.031); Immature Granulocyte Percent A 0.5 % (0-0.5); Lymphocytes Absolute Auto 0.86 K/mm3 (0.9-3.2); Lymphocytes Percent Auto 8.3 % (18.3-44.2); Mean Corpuscular HGB Conc 32.8 g/dl (32-36); Mean Corpuscular Volume 100.5 fl (80-100); Monocytes Absolute Auto 0.3 K/mm3 (0.1-0.6); Neutrophils Absolute Auto 9.2 K/mm3 (1.3-6.7); Platelet Count Result 196 k/mm3 (150-375); Red Blood Count 3.64 M/mm3 (4.2-5.4); Red Cell Distribution Width 14.1 % (11.5-14.5); White Blood Count 10.4 K/mm3 (4.5-10.0)
[2024-08-06 17:50] LABS: Add Urine Microscopic? YES; Appearance Urine Cloudy (Clear); Bacteria Urine 4+ /hpf; Bilirubin Urine 1+ (Negative); Blood Urine Negative (Negative); Color Urine Dark Yellow (Yellow); Glucose Urine UA Negative (Negative); Ketones Urine Trace mg/dL (Negative); Leukocyte Esterase Ur 1+ LEU/UL (Negative); Nitrate Urine Negative (Negative); Non Pathogenic Casts 0-2; Protein Urine 1+ mg/dL (Negative); Specific Grav Ur 1.027 (1.001-1.035); Squamous Epithelial Cell Urine Occasional /hpf (Few); pH Urine 6.5 (5.0-9.0)
[2024-08-06 17:59] LABS: Alanine Aminotransferase 18 U/L (6-35); Albumin Level 3.4 g/dL (3.5-5.1); Alkaline Phosphatase 64 U/L (38-126); Anion Gap 9 mmol/L (4-12); Aspartate Amino Transferase 26 U/L (14-36); Bilirubin,Total 0.6 mg/dL (0.2-1.3); Blood Urea Nitrogen 32 mg/dL (7-17); Calcium 8.7 mg/dL (8.4-10.2); Carbon Dioxide 22 mmol/L (22-30); Chloride 104 mmol/L (98-107); Estimated CRCL calculation 37 ml/min; Estimated Glomerular Filt Rate > 60; Glucose 159 mg/dL (65-110); INR 1.2; Partial Thromboplastin Time 28.1 Seconds (22.3-36.8); Prothrombin Time 15.2 Seconds (11.1-14.7); Sodium 135 mmol/L (137-145)
[2024-08-06 18:20] LABS: Influenza A QL RT-PCR Negative (Negative); Influenza B QL RT-PCR Negative (Negative); RSV RNA, RT-PCR Negative (Negative); SARS-CoV-2 RNA PCR Negative (Negative)
--- NOTE | 2024-08-06 18:29 | ED.WEAKNESS ---
HPI - Weakness General Chief complaint: Weakness Stated complaint: ams Time Seen by Provider: 08/06/24 17:50 Source: patient and family ( Daughter and ) Limitations: dementia History of Present Illness HPI Narrative: patient presents with reported weakness and altered mental status of 4 days duration, although patient's daughter states that yesterday she seemed to be at her baseline she visited her and she was noted to have good p.o. intake that day. She resides at [facility] where she lives with . she is alert and oriented at her baseline nursing staff family concurs. She was noted to be febrile. Family reports that she was recently diagnosed with a urinary tract infection and on antibiotics. They note that she has an allergy to penicillin and cannot say exactly what the allergy is other than it was emergency when she received it while in hospital in [place] years ago, prior to her dementia diagnosis. Patient is complaining of some abdominal pain. She does have chronic back pain/ back issues since use per her never had surgical intervention. Patient is also some shortness of breath. recent diagnosis of pneumonia. No prior diagnosis of DVT or PE. Related Data Home Medications Medication Instructions Recorded Confirmed omega 0-cia-igo-fish oil 1,000 mg 100 cap PO DAILY 08/07/23 08/07/24 (120 mg-180 mg) capsule (Fish Oil) vibegron 75 mg tablet (Gemtesa) 75 mg PO QHS 09/29/23 08/07/24 cholecalciferol (vitamin D3) 25 25 mcg PO DAILY 01/07/24 08/07/24 mcg (1,000 unit) capsule isosorbide mononitrate 10 mg tablet 10 mg PO BID 01/07/24 08/07/24 melatonin 3 mg capsule 3 mg PO QHS 07/23/24 08/07/24 donepezil 10 mg tablet 10 mg PO DAILY 08/07/24 08/07/24 magnesium oxide 400 mg (241.3 mg 400 mg PO DAILY 08/07/24 08/07/24 magnesium) tablet memantine 10 mg tablet 10 mg PO BID 08/07/24 08/07/24 mirtazapine 7.5 mg tablet 7.5 mg PO HS 08/07/24 08/07/24 Allergies Allergy/AdvReac Type Severity Reaction Status Date / Time lidocaine Allergy Unknown Unknown Verified 07/27/24 13:28 metronidazole Allergy Unknown Unknown Verified 07/27/24 13:28 mirabegron Allergy Unknown Unknown Verified 07/27/24 13:28 Penicillins Allergy Unknown Unknown Verified 07/27/24 13:28 Sulfa (Sulfonamide Allergy Unknown Itching Verified 07/27/24 13:28 Antibiotics) [facility] Past Medical History Medical History Chronic GERD Cognitive impairment Essential (primary) hypertension Frequent falls Gait disorder History of dementia Hyperlipidemia Hypothyroidism Primary insomnia Transient ischemic attack Type 2 diabetes mellitus with diabetic neuropathy Urinary incontinence Vitamin D deficiency, unspecified Surgical History Surgical History History of breast biopsy History of colon resection History of D&C History of toe surgery History of total abdominal hysterectomy and bilateral salpingo-oophorectomy Family History Family History Mother Cerebrovascular accident Family history of Alzheimer's disease Father Family history of heart disease in male family member before age 55 Sibling Family history of heart disease in male family member before age 55 Other Diabetes mellitus Family history of cardiovascular disease Hypertension Social History Social History Social History: Surrogate medical decision maker: Daughter Dolores Valdez. Code status: Full code. Smoking packs per day: 0 Smoking cigarettes per day: 0.0 Years smoked: 20 Smoking pack-years: 0.00 Smoking status: Former smoker Second hand tobacco smoke exposure: No Alcohol intake: never Substance use: never Substance use type: does not use Lack of Transportation: No Lack of Food: Never True
[2024-08-06] MEDS: ACETAMINOPHEN 500 MG TABLET 1000 MG PO (18:53)
[2024-08-06] MEDS: SODIUM CHLORIDE 0.9% IV 1,000 ML 999 ML IV CONT ×2 (18:53→23:03)
[2024-08-06 19:57] LABS: D Dimer 1.87 ug/mL (<0.48)
[2024-08-06] MEDS: CIPROFLOXACIN 400 MG/D5W 200ML 200 ML 200 MG IVPB (21:12)
[2024-08-06 21:28] LABS: Lactic Acid Reflex 2.3 mmol/L (0.7-2.0)
--- NOTE | 2024-08-06 22:23 | PM.IMHP ---
H&P: HPI History of Present Illness Date/Time: 08/06/24 22:23 Chief Complaint: General weakness and AMS Narrative: 83-year-old white woman with multiple comorbidities including GERD, chronic low back pain, dementia, hypertension, hyperlipidemia, hypothyroidism, history of TIA, [id number]-[id number]-beaakleye diabetes mellitus, vitamin-D deficiency presents with AMS. Pt lives with her who felt her to be more confused. lives in assisted living. Pts UA is abnl, glucose levels are high, pt wcc slightly high and lactic is up Pt ct head is nl ct PE protocol shows hiatal hernia and GB distension Pt admitted for AMS, weakness and suspected UTI, pt is a poor historian due to confusion and chronic dementia As per ED note - urine culture from 12/19/2023 is reviewed which at that time showed Enterobacter cloacae that was resistant to several antibiotics including piperacillin/tazobactam. It is sensitive to cefepime but will avoid cephalosporins given the reported allergy to penicillin. It does show sensitivity to ciprofloxacin Pt HR was elevated in ED ekg shows Right bundle branch block (RBBB) determined by electrocardiography, Left anterior fascicular block (LAFB), While pt was in ED her Bp dropped and fluids were started Review of Systems Review of Systems: low grade fevers, confusion and weakness all other 12 systems are reviewed and negative apart from these PMFSH Past Medical History Medical History Chronic GERD Cognitive impairment Essential (primary) hypertension Frequent falls Gait disorder History of dementia Hyperlipidemia Hypothyroidism Primary insomnia Transient ischemic attack Type 2 diabetes mellitus with diabetic neuropathy Urinary incontinence Vitamin D deficiency, unspecified Surgical History Surgical History History of breast biopsy History of colon resection History of D&C History of toe surgery History of total abdominal hysterectomy and bilateral salpingo-oophorectomy Family History Family History Mother Cerebrovascular accident Family history of Alzheimer's disease Father Family history of heart disease in male family member before age 55 Sibling Family history of heart disease in male family member before age 55 Other Diabetes mellitus Family history of cardiovascular disease Hypertension Social History Social History Social History: Surrogate medical decision maker: Daughter Dolores Valdez. Code status: Full code. Smoking packs per day: 0 Smoking cigarettes per day: 0.0 Years smoked: 20 Smoking pack-years: 0.00 Smoking status: Former smoker Second hand tobacco smoke exposure: No Alcohol intake: never Substance use: never Substance use type: does not use Lack of Transportation: No Lack of Food: Never True Current Housing: I Have Housing Concerned About Future Housing: No Difficulty Paying Gas/Electric Bills: No Difficulty Paying for Meds: No Currently Unemployed: No Education: High School Diploma/GED Difficulty w/ Childcare or Family Care: No Living arrangements: with family Additional living arrangements comments: Patient lives with her at [facility] Occupation/Education: retired Additional occupation/education comments: 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 Spiritual care concerns: No Meds Home Medications and Allergies Home Medications Medication Instructions Recorded Confirmed Type omega 0-sfl-opq-fish oil 1,000 mg 100 cap PO DAILY 08/07/23 07/27/24 History (120 mg-180 mg) capsule (Fish Oil) vibegron 75 mg tablet (Gemtesa) 75 mg PO QHS 09/29/23 07/27/24 History cholecalciferol (vitamin D3) 25 1,000 mcg PO DAILY 01/07/24 07/27/24 History mcg (1,000 unit) ca
[2024-08-07 00:09] VITALS: BP 106/56; PULSE 83; RESP 16; O2SAT 97
[2024-08-07 00:11] VITALS: TEMP 36.9
[2024-08-07 00:17] LABS: Reflex Lactic Acid Yes or No Add Lactic
[2024-08-07 00:55] LABS: Hematocrit 32.8 % (37.0-47.0); Hemoglobin 10.7 g/dL (12.0-15.0); Mean Corpuscular HGB Conc 32.6 g/dl (32-36); Mean Corpuscular Hemoglobin 33.2 pg (26-34); Mean Corpuscular Volume 101.9 fl (80-100); Mean Platelet Volume 10.6 fl (7.4-10.4); Platelet Count Result 166 k/mm3 (150-375); Red Blood Count 3.22 M/mm3 (4.2-5.4); Red Cell Distribution Width 14.5 % (11.5-14.5); White Blood Count 8.1 K/mm3 (4.5-10.0)
[2024-08-07 01:07] LABS: Lactic Acid 1.6 mmol/L (0.7-2.0)
[2024-08-07 01:08] LABS: Anion Gap 8 mmol/L (4-12); Blood Urea Nitrogen 27 mg/dL (7-17); Calcium 8.2 mg/dL (8.4-10.2); Carbon Dioxide 22 mmol/L (22-30); Chloride 105 mmol/L (98-107); Estimated CRCL calculation 33 ml/min; Estimated Glomerular Filt Rate 60; Glucose 111 mg/dL (65-110); Potassium 3.8 mmol/L (3.4-5.0); Sodium 135 mmol/L (137-145)
[2024-08-07 01:13] VITALS: BMI 25.9
--- NOTE | 2024-08-07 01:30 | ADMGEN ---
This patient, Kathy Valdez, was admitted to 3 Med Surg Room 305-02. Patient/family oriented to hospital policies and general routines including ID bracelet, bed and alarms, visiting hours, pain management, procedures, bathroom and other care routines, personal items, smoking policy, room service/diet, and visiting hours. Information on how to activate the Rapid Response Team has been discussed. Patient/Family are encouraged to report perceived risks to care and to ask questions if they do not understand what they are told or what they should do.
[2024-08-07] MEDS: LACTATED RINGERS 1,000 ML 100 ML IV CONT ×2 (02:02→12:08)
[2024-08-07 05:39] VITALS: BP 110/70; PULSE 88; RESP 18; TEMP 36.7; O2SAT 96
[2024-08-07 08:02] VITALS: O2SAT 93
--- NOTE | 2024-08-07 08:10 | PM.IMPN ---
Progress Note: A&P Assessment and Plan (1) Sepsis: Qualifiers: Sepsis acute organ dysfunction status: without acute organ dysfunction Code(s): A41.9 - Sepsis, unspecified organism Status: Acute Assessment and Plan: Patient is meeting sepsis requirements with leukocytosis on admission of 10.4, lactic acidosis 2.3, hypotension and tachycardia. Suspected source of infection is urinary Patient received 2 L of normal saline fluid resuscitation in the ER. Repeat lactic 1.6 Blood cultures were drawn, urine culture pending 1 gram of Tylenol administered for fever of 100.5 Patient was started on ciprofloxacin based on prior urine culture (2) Urinary tract infection: Qualifiers: Urinary tract infection type: acute cystitis Code(s): N39.0 - Urinary tract infection, site not specified Status: Acute Assessment and Plan: Urinalysis shows cloudy dark yellow urine with +1 protein, trace ketones, +1 bilirubin, +1 leukocyte esterase 3-5 rbc's and 11 20 wbc's with +4 bacteria. Urine culture in process She was started on ciprofloxacin based off of prior urine cultures IV fluids with LR at 100 an hour Plan DVT prophylaxis: Lovenox Glycemic control: Not applicable Code Status: DNR Disposition: 84-year-old female who presents from assisted living with altered mental status. She does have a baseline of dementia but her felt she was more confused than usual. She was triggering sepsis for leukocytosis with lactic acidosis hypertension, and tachycardia. This suspected source of infection is urinary. Blood in urine cultures were drawn, she was started on IV antibiotics, and fluid resuscitated in the emergency room. PT and OT have been ordered. Medication reconciliation obtained via the following: Nurse completed on admission The file time of this note does not necessarily represent the time the patient was seen. Subjective Date/time seen: 08/07/24 08:10 Interval history: 83-year-old white woman with multiple comorbidities including GERD, chronic low back pain, dementia, hypertension, hyperlipidemia, hypothyroidism, history of TIA, [id number] diabetes mellitus, vitamin-D deficiency presents with AMS. 08/07: Resting in bed with at bedside. Patient is alert and oriented to self. She says she is tired and weak and sometimes has abdominal pain. Her states that she was just treated for UTI last week with ciprofloxacin. Review of Systems Review of Systems: ROS unobtainable: Yes unobtainable due to mental status Exam Narrative: General: Pale, frail, elderly, appears stated age. HEENT: normocephalic, atraumatic. Mucous membranes tacky, EOMI, PERRLA, bilateral sclera anicteric, no conjunctival injection. Neck supple without JVD, lymphadenopathy, or bruit. Respiratory: clear to auscultation bilaterally. No rales/rhonic/wheezes. Cardiovascular: Regular rate and rhythm, normal S1-S2 upon auscultation. No murmurs, rubs, or clicks. PMI is nondisplaced, capillary refill less than 3 second. Abdomen: Soft, round, no pulsatile masses, nondistended and nontender. No rebound, no guarding. No CVA tenderness, no hepatosplenomegaly. Bowel sounds present to all four quadrants. No high pitch or tinkling sounds, resonant to percussion. Extremities: No cyanosis, clubbing, or edema present. Pulses are palpable 2/2. Active ROM to all four extremities. Neuro: Alert and orientated x 1-2. PERRLA. Cranial nerves 2-12 intact without focal deficit. Skin: Warm, dry, and intact, without rash, erythema, or lesion. Pale Lines: Incisions: Psych: pleasant, cooperative, normal speech, normal affect, no hallucinations, no dysarthria Objective Data Vital Signs Vital Signs: Vital Signs - 24 hr 08/06/24 16:54 08/06/24 17:13 08/06/24 17:15 Temperature 10
[2024-08-07] MEDS: PANTOPRAZOLE 40 MG TABLET PO (08:58)
[2024-08-07] MEDS: ASPIRIN 81 MG CHEWABLE TABLET PO (08:58)
[2024-08-07] MEDS: MAGNESIUM OXIDE 400 MG TABLET PO (08:58)
[2024-08-07] MEDS: DONEPEZIL HCL 10 MG TABLET PO (09:00)
[2024-08-07] MEDS: SIMVASTATIN 20 MG TABLET 40 MG PO (09:00)
[2024-08-07] MEDS: MEMANTINE 10 MG TABLET PO ×2 (09:00→17:01)
[2024-08-07] MEDS: ISOSORBIDE MONONITRATE 10 MG TABLET PO ×2 (09:00→17:01)
[2024-08-07] MEDS: ENOXAPARIN 40 MG/0.4 ML SYRINGE SUB-Q (09:01)
[2024-08-07 13:49] VITALS: BP 120/52; PULSE 93; RESP 17; TEMP 36.7; O2SAT 99
--- NOTE | 2024-08-07 16:03 | PCOTNOTE ---
Attempted OT evaluation. Pt. refused stating she is too tired to get out of bed. Will attempt again as able tomorrow.
[2024-08-07] MEDS: CIPROFLOXACIN 400 MG/D5W 200ML 200 ML 200 MG IVPB (20:00)
[2024-08-07] MEDS: MIRTAZAPINE 7.5 MG TABLET PO (20:14)
[2024-08-07] MEDS: MELATONIN 3 MG TABLET PO (20:15)
[2024-08-07 21:36] VITALS: BP 142/74; PULSE 92; RESP 16; TEMP 37.1; O2SAT 93
[2024-08-08] MEDS: LACTATED RINGERS 1,000 ML 100 ML IV CONT (00:16)
[2024-08-08 05:59] VITALS: BP 125/71; PULSE 82; RESP 13; TEMP 36.3; O2SAT 93
[2024-08-08 06:10] LABS: Hematocrit 33.8 % (37.0-47.0); Hemoglobin 11.2 g/dL (12.0-15.0); Mean Corpuscular HGB Conc 33.1 g/dl (32-36); Mean Corpuscular Hemoglobin 32.8 pg (26-34); Mean Corpuscular Volume 99.1 fl (80-100); Mean Platelet Volume 11.3 fl (7.4-10.4); Platelet Count Result 167 k/mm3 (150-375); Red Blood Count 3.41 M/mm3 (4.2-5.4); Red Cell Distribution Width 13.8 % (11.5-14.5)
[2024-08-08 06:15] LABS: Lactic Acid Reflex 0.9 mmol/L (0.7-2.0)
[2024-08-08 06:29] LABS: Anion Gap 8 mmol/L (4-12); Blood Urea Nitrogen 16 mg/dL (7-17); Calcium 8.6 mg/dL (8.4-10.2); Carbon Dioxide 23 mmol/L (22-30); Chloride 101 mmol/L (98-107); Estimated CRCL calculation 37 ml/min; Estimated Glomerular Filt Rate > 60; Glucose 108 mg/dL (65-110); Magnesium 1.7 mg/dL (1.6-2.3); Potassium 3.5 mmol/L (3.4-5.0); Sodium 132 mmol/L (137-145)
--- NOTE | 2024-08-08 07:09 | PM.IMPN ---
Progress Note: A&P Assessment and Plan (1) Sepsis: Qualifiers: Sepsis acute organ dysfunction status: without acute organ dysfunction Code(s): A41.9 - Sepsis, unspecified organism Status: Acute Assessment and Plan: Patient is meeting sepsis requirements with leukocytosis on admission of 10.4, lactic acidosis 2.3, hypotension and tachycardia. Suspected source of infection is urinary Patient received 2 L of normal saline fluid resuscitation in the ER. Repeat lactic 1.6 Blood cultures were drawn, urine culture pending 1 gram of Tylenol administered for fever of 100.5 Patient was started on ciprofloxacin based on prior urine culture (2) Urinary tract infection: Qualifiers: Urinary tract infection type: acute cystitis Code(s): N39.0 - Urinary tract infection, site not specified Status: Acute Assessment and Plan: Urinalysis shows cloudy dark yellow urine with +1 protein, trace ketones, +1 bilirubin, +1 leukocyte esterase 3-5 rbc's and 11 20 wbc's with +4 bacteria. Urine culture grew Aerococcus urinae She was started on ciprofloxacin based off of prior urine cultures IV fluids with NS at 75 an hour Plan DVT prophylaxis: Lovenox Glycemic control: Not applicable Code Status: DNR Disposition: 84-year-old female who presents from assisted living with altered mental status. She does have a baseline of dementia but her felt she was more confused than usual. She was triggering sepsis for leukocytosis with lactic acidosis hypertension, and tachycardia. This suspected source of infection is urinary. Blood in urine cultures were drawn, she was started on IV antibiotics, and fluid resuscitated in the emergency room. PT and OT have been ordered. Medication reconciliation obtained via the following: Nurse completed on admission The file time of this note does not necessarily represent the time the patient was seen. Subjective Date/time seen: 08/08/24 07:09 Interval history: 83-year-old white woman with multiple comorbidities including GERD, chronic low back pain, dementia, hypertension, hyperlipidemia, hypothyroidism, history of TIA, [id number]-flpfzoeok diabetes mellitus, vitamin-D deficiency presents with AMS. 08/07: Resting in bed with at bedside. Patient is alert and oriented to self. She says she is tired and weak and sometimes has abdominal pain. Her states that she was just treated for UTI last week with ciprofloxacin. 08/08: Patient is seen sitting up in the chair eating breakfast. He is at bedside. She looks much better today. She is less pale and is less drowsy. She says she is hungry. Review of Systems Review of Systems: ROS unobtainable: Yes unobtainable due to mental status Exam Narrative: General: frail, elderly, appears stated age. HEENT: normocephalic, atraumatic. Mucous membranes tacky, EOMI, PERRLA, bilateral sclera anicteric, no conjunctival injection. Neck supple without JVD, lymphadenopathy, or bruit. Respiratory: clear to auscultation bilaterally. No rales/rhonic/wheezes. Cardiovascular: Regular rate and rhythm, normal S1-S2 upon auscultation. No murmurs, rubs, or clicks. PMI is nondisplaced, capillary refill less than 3 second. Abdomen: Soft, round, no pulsatile masses, nondistended and nontender. No rebound, no guarding. No CVA tenderness, no hepatosplenomegaly. Bowel sounds present to all four quadrants. No high pitch or tinkling sounds, resonant to percussion. Extremities: No cyanosis, clubbing, or edema present. Pulses are palpable 2/2. Active ROM to all four extremities. Neuro: Alert and orientated x 1-2. PERRLA. Cranial nerves 2-12 intact without focal deficit. Skin: Warm, dry, and intact, without rash, erythema, or lesion. Lines: Incisions: Psych: pleasant, cooperative, normal speech, no
[2024-08-08] MEDS: ACETAMINOPHEN 325 MG TABLET 650 MG PO ×2 (09:07→19:43)
[2024-08-08] MEDS: DOCUSATE SODIUM 100 MG CAPSULE PO (10:06)
[2024-08-08] MEDS: PANTOPRAZOLE 40 MG TABLET PO (10:06)
[2024-08-08] MEDS: MAGNESIUM OXIDE 400 MG TABLET PO (10:06)
[2024-08-08] MEDS: ISOSORBIDE MONONITRATE 10 MG TABLET PO ×2 (10:06→19:44)
[2024-08-08] MEDS: ASPIRIN 81 MG CHEWABLE TABLET PO (10:06)
[2024-08-08] MEDS: SIMVASTATIN 20 MG TABLET 40 MG PO (10:06)
[2024-08-08] MEDS: MEMANTINE 10 MG TABLET PO ×2 (10:06→19:45)
[2024-08-08] MEDS: ENOXAPARIN 40 MG/0.4 ML SYRINGE SUB-Q (10:06)
[2024-08-08] MEDS: DONEPEZIL HCL 10 MG TABLET PO (10:06)
[2024-08-08] MEDS: SODIUM CHLORIDE 0.9% IV 1,000 ML 75 ML IV CONT (10:07)
[2024-08-08] MEDS: CIPROFLOXACIN 400 MG/D5W 200ML 200 ML 200 MG IVPB ×2 (10:07→22:22)
[2024-08-08 14:00] VITALS: BP 115/57; PULSE 72; RESP 16; TEMP 36.2; O2SAT 95
[2024-08-08 22:00] VITALS: BP 157/76; PULSE 84; RESP 16; TEMP 36.8; O2SAT 93
[2024-08-08] MEDS: MIRTAZAPINE 7.5 MG TABLET PO (22:20)
[2024-08-08] MEDS: MELATONIN 3 MG TABLET PO (22:20)
[2024-08-09 06:00] VITALS: BP 136/75; PULSE 92; RESP 16; TEMP 36.5; O2SAT 92
[2024-08-09 06:50] LABS: Hematocrit 34.7 % (37.0-47.0); Hemoglobin 11.1 g/dL (12.0-15.0); Mean Corpuscular Hemoglobin 33.1 pg (26-34); Mean Corpuscular Volume 103.6 fl (80-100); Mean Platelet Volume 11.2 fl (7.4-10.4); Platelet Count Result 193 k/mm3 (150-375); Red Blood Count 3.35 M/mm3 (4.2-5.4); Red Cell Distribution Width 13.8 % (11.5-14.5); White Blood Count 5.9 K/mm3 (4.5-10.0)
[2024-08-09 07:04] LABS: Anion Gap 8 mmol/L (4-12); Blood Urea Nitrogen 13 mg/dL (7-17); Calcium 8.5 mg/dL (8.4-10.2); Carbon Dioxide 23 mmol/L (22-30); Chloride 104 mmol/L (98-107); Estimated CRCL calculation 37 ml/min; Estimated Glomerular Filt Rate > 60; Glucose 113 mg/dL (65-110); Potassium 3.8 mmol/L (3.4-5.0); Sodium 135 mmol/L (137-145)
[2024-08-09] MEDS: ASPIRIN 81 MG CHEWABLE TABLET PO (08:45)
[2024-08-09] MEDS: PANTOPRAZOLE 40 MG TABLET PO (08:45)
[2024-08-09] MEDS: ENOXAPARIN 40 MG/0.4 ML SYRINGE SUB-Q (08:45)
[2024-08-09] MEDS: DONEPEZIL HCL 10 MG TABLET PO (08:45)
[2024-08-09] MEDS: MAGNESIUM OXIDE 400 MG TABLET PO (08:45)
[2024-08-09] MEDS: DOCUSATE SODIUM 100 MG CAPSULE PO (08:45)
[2024-08-09] MEDS: ISOSORBIDE MONONITRATE 10 MG TABLET PO (08:45)
[2024-08-09] MEDS: SIMVASTATIN 20 MG TABLET 40 MG PO (08:45)
[2024-08-09] MEDS: CIPROFLOXACIN 400 MG/D5W 200ML 200 ML 200 MG IVPB (08:47)
[2024-08-09] MEDS: MEMANTINE 10 MG TABLET PO (08:47)
--- NOTE | 2024-08-09 10:46 | PM.DS ---
DS: Admitting Diagnosis Discharge Date 08/09 Admitting Diagnosis weakness DS: Discharge Diagnosis Discharge Diagnosis (1) Sepsis: Qualifiers: Sepsis acute organ dysfunction status: without acute organ dysfunction Code(s): A41.9 - Sepsis, unspecified organism Status: Acute Assessment and Plan: Patient is meeting sepsis requirements with leukocytosis on admission of 10.4, lactic acidosis 2.3, hypotension and tachycardia. Suspected source of infection is urinary Patient received 2 L of normal saline fluid resuscitation in the ER. Repeat lactic 1.6 Blood cultures were drawn, urine culture pending 1 gram of Tylenol administered for fever of 100.5 Patient was started on ciprofloxacin based on prior urine culture (2) Urinary tract infection: Qualifiers: Urinary tract infection type: acute cystitis Code(s): N39.0 - Urinary tract infection, site not specified Status: Acute Assessment and Plan: Urinalysis shows cloudy dark yellow urine with +1 protein, trace ketones, +1 bilirubin, +1 leukocyte esterase 3-5 rbc's and 11 20 wbc's with +4 bacteria. Urine culture grew Aerococcus urinae She was started on ciprofloxacin based off of prior urine cultures IV fluids with NS at 75 an hour Plan DVT prophylaxis: Lovenox Glycemic control: Not applicable Code Status: DNR Disposition: 84-year-old female who presents from assisted living with altered mental status. She does have a baseline of dementia but her felt she was more confused than usual. She was triggering sepsis for leukocytosis with lactic acidosis hypertension, and tachycardia. This suspected source of infection is urinary. Blood in urine cultures were drawn, she was started on IV antibiotics, and fluid resuscitated in the emergency room. PT and OT have been ordered. Medication reconciliation obtained via the following: Nurse completed on admission The file time of this note does not necessarily represent the time the patient was seen. DS: Summary Hospital Course Reason for hospitalization: UTI, sepsis Hospital Course: 83-year-old white woman with multiple comorbidities including GERD, chronic low back pain, dementia, hypertension, hyperlipidemia, hypothyroidism, history of TIA, [id number] diabetes mellitus, vitamin-D deficiency presents with AMS. Who presented to the emergency room with concerns of weakness and altered mental status. The patient has baseline dementia but her noticed that she was more lethargic and seemed more confused. He states she recently finished treatment for urinary tract infection with what he believes was Cipro antibiotic. On arrival to the ER her white count was elevated at 10.4, sodium 135, lactic 2.3, and D-dimer elevated 1.87. Urinalysis concerning for infection. She received fluid resuscitation in emergency room and was started on continuous fluids. CTA of chest showed no pulmonary embolism. There was concerns for gallbladder distension which was thought to be secondary to fasting if the patient was having no right upper quadrant abdominal pain, nausea, or vomiting. Ultrasound of her abdomen showed gallbladder distention. Blood cultures had no growth. Urine culture grew Aerococcus urinae. She was treated with IV ciprofloxacin based off of previous urine cultures. She was discharged on 2 days of Macrobid to complete a total treatment of 5 days of antibiotics for UTI. PT and OT were consulted and recommended she was safe to discharge back to her assisted living. Overall she did well was discharged in stable condition. Time Spent with Patient Time attestation: Total time spent providing and/or coordinating discharge services: 70 Exam Narrative: General: frail, elderly, appears stated age. HEENT: normocephalic, atraumatic. Mucous membran
[2024-08-09] MEDS: NITROFURANTOIN MONOHYD MACROCR 100 MG CAP PO (10:56)
[2024-08-09 11:21] VITALS: BMI 25.9
--- NOTE | 2024-08-10 11:32 | PC.NURSE ---
Documentation under the name of Zora Shannon on 08/09/24 from [id number] was done by Joyce Gandara. Signing out and logging in was not done correctly at shift change.
== END 2024-08-09 13:05 | DRG 871 ==
LOC: ANHED 18:11 → ANH3MEDSUR 22:55
PROVIDERS: Student in an Organized Health Care Education/Training Program; Admitting Provider Family Medicine; Emergency Provider Student in an Organized Health Care Education/Training Program; PCP Family Medicine; Visit Provider Nurse Practitioner Acute Care
DX: A41.9 Sepsis, unspecified organism (principal); G92.8 Other toxic encephalopathy; N39.0 Urinary tract infection, site not specified; I10 Essential (primary) hypertension; I45.10 Unspecified right bundle-branch block; E78.5 Hyperlipidemia, unspecified; E11.40 Type 2 diabetes mellitus with diabetic neuropathy, unspecified; E03.9 Hypothyroidism, unspecified; E55.9 Vitamin D deficiency, unspecified; I44.4 Left anterior fascicular block; K21.9 Gastro-esophageal reflux disease without esophagitis; K44.9 Diaphragmatic hernia without obstruction or gangrene; R29.6 Repeated falls; R26.9 Unspecified abnormalities of gait and mobility; F51.01 Primary insomnia; F03.90 Unspecified dementia, unspecified severity, without behavioral disturbance, psychotic disturbance, mood disturbance, and anxiety; Z79.82 Long term (current) use of aspirin; Z86.73 Personal history of transient ischemic attack (TIA), and cerebral infarction without residual deficits; Z87.891 Personal history of nicotine dependence
CPT/HCPCS: 36415; 70450; 71046; 71275; 74176; 76705; 80048; 80053; 81001; 83605; 83735; 85025; 85027; 85380; 85610; 85730; 87040; 87077; 87086; 87088; 87637; 93005; 96361; 96365; 96366; 96372; 97110; 97161; 97165; 97530; 99285; A9270; G0378; J0744; J1650; J7030; J7120; Q9967